=== PATIENT | male | born 1955 | race Caucasian/White ===

== ENCOUNTER 2019-03-22 16:43 | Observation (INO) | payer OTHER ==
[2019-03-22] VITALS (7 sets, daily range): BP systolic 122–148; BP diastolic 74–79
[~2019-03-22] VITALS: Ht 175.3 cm; Wt 68.0 kg
--- NOTE | 2019-03-22 16:19 | NUR ---
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 NOT SEEN BY ERP CIGAR HEAD PERFORATOR IN ER
[2019-03-22 16:31] LABS: HEMATOCRIT 42.8 % (42.0-52.0); HEMOGLOBIN 14.2 gm/dL (14.0-18.0); MCH 27.9 pg (26.0-34.0); MCHC 33.2 g/dL (28.0-37.0); MCV 84.1 fL (80.0-100.0); RBC 5.09 mil/uL (4.50-6.00); WBC 9.6 thou/uL (4.0-11.0)
[2019-03-22 16:38] LABS: CALCIUM 9.5 mg/dL (8.5-10.1); POTASSIUM 3.7 mmol/L (3.5-5.1)
[2019-03-22 16:43] LABS: PROTIME 10.7 Seconds (9.3-11.4)
[~2019-03-22 16:43] MED LIST: ASPIR 8181 MG PO; BENADRYL25 MG PO; PROTONIX 20 MG20 M1 PO
[2019-03-22 18:20] LABS: CHOLESTEROL 345 mg/dL (<200); HDL CHOLESTEROL 47 mg/dL (>40); LDL CHOLESTEROL 272 mg/dL (<100); TC:HDL 7.3 Ratio (Not establshd); TRIGLYCERIDE 133 mg/dL (<150); VLDL 27 mg/dL (<40)
[2019-03-22 18:23] LABS: SERUM ASSESSMENT Clear
--- NOTE | 2019-03-22 18:51 | NUR ---
PT CAME TO UNIT FROM BODY TECHNICIAN/PAINTER. HEMOSTATSIS AT 1739. NO C/O PAIN. BED REST FOR 3 HOURS. VSS AT THIS TIME. A&OX4. FIRST 3 VS CHARTED. REPORT GIVEN TO ON COMING NURSE.
[2019-03-22] MEDS ORDERED: TOPROL XL50 MG PO (21:06)
[2019-03-22] MEDS ORDERED: IMDUR 30 MG TAB30 M1 PO (21:06)
[2019-03-22] MEDS ORDERED: LIPITOR80 MG PO (21:06)
[2019-03-23 00:38] VITALS: BP 100/55
[2019-03-23 04:17] VITALS: BP 102/59
--- NOTE | 2019-03-23 05:05 | NUR ---
ASSUMED PT CARE AT 1900. PT IS ALERT AND ORIENTED. PT ARRIVED ON THE FLOOR FROM MOBILE TESTER AND IS ON BEDREST. RIGHT GROIN SITE IS INTACT, CLEAN AND DRY. PT IS STABLE. NO COMPLIANTS OF CHEST PAIN. ADMISSION ASSESSMENT COMPLETED. NO SIGN OF DISTRESS NOTED IN PT. PT IS ALERT AND ORIENTED. SPOUSE AT BEDSIDE. SCHEDULED MEDS ADMINISTERED TO PT. DENUES ANY CHEST PAIN. NO FURTHER NEEDS AT THIS TIME. CONTINUE TO MONITOR PATIENT AND RIGHT GROIN SITE
[2019-03-23 07:46] VITALS: BP 106/63
--- NOTE | 2019-03-23 08:30 | NUR ---
REPORT RECEIVED FROM PREVIOUS RN, CARE ASSUMED. PRESENT IN ROOM. PT TRANSFERRING PER WHEELCHAIR TO PULMONARY PER PFT.
[2019-03-23] MEDS ORDERED: WELLBUTRIN 75 M75 M1 PO (08:32)
--- NOTE | 2019-03-23 10:26 | 2DMMODE ---
[facility] [place] [address] 2 D/M-MODE ECHOCARDIOGRAM Name: MILLA PERALTA Room #: 207-P [facility] IN .R.#: [id number] Admission: 03/22/19 Attend Phys: Tato Sagastume, Discharge: Date of : 53 Report #: [id number] THIS REPORT FOR: //name// APPROVED REPORT Study performed: 03/23/2019 09:24:24 EXAM: Comprehensive 2D, Doppler, and color-flow Echocardiogram Patient Location: Echo lab Room #: [facility] Status: routine BSA: 1.83 HR: 64 bpm BP: 106/63 mmHg Rhythm: NSR Other Information Study Quality: Good Indications Pre-Op COPD CAD Chest Pain 2D Dimensions RVDd: 28.75 mm IVSd: 10.63 (7-11mm) LVOT Diam: 22.56 (18-24mm) LVDd: 50.22 mm PWd: 10.03 (7-11mm) Ascending Ao: 37.02 (22-36mm) LVDs: 36.05 (25-40mm) Aortic Root: 35.01 mm IVC: 17.00 mm Volumes Left Atrial Volume (Systole) Single Plane 4CH: 37.63 mL Single Plane 2CH: 31.12 mL LA ESV Index: 22.00 mL/m2 Aortic Valve AoV Peak Triston.: 1.37 m/s AO Peak Gr.: 7.52 mmHg LVOT Max P.32 mmHg LVOT Max V: 1.04 m/s ANTONI Vmax: 3.03 cm2 Mitral Valve [facility] [address] [place] [address] 2 D/M-MODE ECHOCARDIOGRAM Name: MILLA PERALTA Room #: 207-P [facility]#: [id number] Admission: 03/22/19 Attend Phys: Tato Sagastume, Discharge: Date of : 53 Report #: [id number] E/A Ratio: 0.9 MV Decel. Time: 229.29 ms MV E Max Triston.: 0.72 m/s MV A Triston.: 0.78 m/s MV PHT: 66.50 ms IVRT: 138.41 ms Pulmonary Valve PV Peak Triston.: 0.97 m/s PV Peak Gr.: 3.74 mmHg Pulmonary Vein P Vein S: 0.64 m/s P Vein A: 0.28 m/s P Vein D: 0.36 m/s P Vein A Dur.: 115.3 msec P Vein S/D Ratio: 1.78 Tricuspid Valve TR Peak Triston.: 2.77 m/s TR Peak Gr.: 30.72 mmHg PA Pressure: 36.00 mmHg Left Ventricle The left ventricle is normal size. There is normal LV segmental wall motion. There is normal left ventricular wall thickness. Left ventricular systolic function is normal. The left ventricular ejection fraction is within the normal range. LVEF is 50-55%. Grade I - abnormal relaxation pattern. Right Ventricle The right ventricle is normal size. The right ventricular systolic function is normal. Atria The left atrium size is normal. The right atrium size is normal. Aortic Valve The aortic valve is normal in structure. No aortic regurgitation is present. There is no aortic valvular stenosis. Mitral Valve The mitral valve is normal in structure. Trace mitral regurgitation. No evidence of mitral valve stenosis. Tricuspid Valve The tricuspid valve is normal in structure. There is mild tricuspid regurgitation. The right atrial pressure is estimated at [facility] [address] [place] [address] 2 D/M-MODE ECHOCARDIOGRAM Name: MILLA PERALTA Room #: 207-P [facility] IN M.R.#: [id number] Admission: 03/22/19 Attend Phys: Tato Sagastume, Discharge: Date of : 53 Report #: [id number] mmHg.Estimated PAP 36 mmHg. There is mild pulmonary hypertension. Pulmonic Valve The pulmonary valve is normal in structure. There is no pulmonic valvular regurgitation. Great Vessels The aortic root is normal in size. IVC is normal in size and collapses >50% with inspiration. Pericardium There is no pericardial effusion. <Conclusion> The left ventricle is normal size. LVEF is 50-55%. The aortic valve is normal in structure. The mitral valve is normal in structure. Trace mitral regurgitation. The tricuspid valve is normal in structure. There is mild tricuspid regurgitation. The right atrial pressure is estimated at mmHg.Estimated PAP 36 mmHg. There is mild pulmonary hypertension. The pulmonary valve is normal in structure. There is no pericardial effusion. <ELECTRONICALLY SIGNED> By: Kashmir Nieves MD 03/23/19 1025 1025 1025 Kashmir Nieves MD /INF
--- NOTE | 2019-03-23 10:47 | NUR ---
Pt dcing home today. Pt and his had ins questions. Updated ins card, [employer] medicare [place] plan, faxed to DOLLY and copy placed on the front of the chart. reports this became effective 03/20/19. Pt to come back next week for open heart surgery. Pt is A&OX4 and anxious about surgery. 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 His works as well but is getting [facility] paperwork so she can be home with him as needed postop. Cm role and dc planning discussed. Goal for the pt is to be able to go to cardiac rehab. He has no hh or dme hx. His drives and can assist with f/u appts. Support and encouragment provide. Pt is making a plan to quit smoking and mantain a heart healthy diet. No cm interventions indicated at this time.
[2019-03-23 12:05] VITALS: BP 128/70
[2019-03-23 15:17] VITALS: BP 128/69
--- NOTE | 2019-03-23 16:00 | NUR ---
WHEN PT RETURNED FROM ROOM FOR PFT, THEN HE TRAVELED IN WHEELCHAIR FOR ECHO AND CAROTID ULTRASOUND. DENIES ANY CARDIAC DISCOMFORT OR SYMPTOMS. WHEN AVAILABLE URINE AND MRSA SENT TO LAB. INFORMED OF ALL NEW MEDS WHEN ADMINISTERED. GENERATED DISCHARGE INSTRUCTIONS WITH DETAILS REGARDING FOLLOW UP PHONE CALL, APPT WITH DR. PATEL, OBTAINING SCRIPTS AT LOCAL PHARMACY. ALL QUESTIONS ANSWERED TO SATISFACTION. CAMRYN DOUGLASS RN DISCUSSING DISCHARGE INSTRUCTIONS WITH PT AND .
--- NOTE | 2019-03-23 16:32 | NUR ---
1630 DC PT TO HOME. EDUCATION GIVEN ABOUT NEW MEDS. SCRPITS SENT TO PHARMACY. PT TAKEN BY WC TO FRONT ENTRANCE.
--- NOTE | 2019-03-24 15:43 | HC ---
[facility] [place] [address] CONSULTATION Name: MILLA PERALTA Room #: 207-P [facility] MFlowerRFlower#: [id number] Admission: 03/22/19 Attend Phys: Tato Sagastume MD, Discharge: 03/23/19 Date of : 53 Report #: [id number] THIS REPORT FOR: //name// CC: Tato Pati[facility] DATE OF SERVICE: 03/23/2019 PULMONARY CONSULTATION REFERRING PHYSICIAN: Dr. Sagastume. REASON FOR REFERRAL: Preop pulmonary evaluation. HISTORY OF PRESENT ILLNESS: The patient is a 63-year-old white male who was admitted for accelerated angina. He was found to have severe coronary artery disease. Plans are for possible coronary bypass revascularization. A pulmonary consultation was requested. The patient states that he has smoked about a pack a day for most of his life. He continues to smoke. Otherwise, denies any fever, night sweats or chills, chest pain, productive cough. He denies any history of chronic lung disease or chronic bronchitis. He states that he has been relatively healthy for most of his life. More recently, he started to develop chest discomfort, easy fatigability. He was seen by his inspector material disposition in [place], Dr. Echevarria. His EKG shows T-wave inversion along the anterolateral leads. For that reason, he was referred here for further evaluation. 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 PAST MEDICAL HISTORY: As mentioned above, long history of tobacco use. PAST SURGICAL HISTORY: Status post hernia repair, appendectomy. ALLERGIES: None noted. HOME MEDICATION LISTS: Aspirin, Benadryl and Protonix. FAMILY HISTORY: Notable for cervical cancer in the mother who has . Father had lung cancer who has worked in a coal mines. SOCIAL HISTORY: The patient is , continues to smoke about a pack a day and has done so for most of his life. 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 [facility] [address] [place] [address] CONSULTATION Name: MILLA PERALTA Room #: 207-P [facility] M.R.#: [id number] Admission: 03/22/19 Attend Phys: Tato Sagastume MD, Discharge: 03/23/19 Date of : 53 Report #: [id number] REVIEW OF SYSTEMS: As mentioned above, otherwise 10-point system review negative. PHYSICAL EXAMINATION: GENERAL: He is awake, alert, in no apparent distress. VITAL SIGNS: Temperature is 97.4 degrees Fahrenheit, pulse is 60, respiratory rate is 18, blood pressure is 100/63 mmHg, saturation 97%. HEENT: Normocephalic, atraumatic. NECK: Supple, without lymphadenopathy or thyromegaly. CHEST: Breath sounds are good bilaterally without any rales or wheezes. CARDIOVASCULAR: Normal S1, S2. No murmurs or gallop. There is no JVD. There is no carotid bruit. Pulses are 2+/4+ bilaterally. ABDOMEN: Soft, nontender, no organomegaly or masses felt. GENITOURINARY: Deferred. RECTAL: Deferred. EXTREMITIES: No edema, cyanosis or clubbing. LABORATORY DATA: Chest x-ray shows questionable density in the left mid lung field. Right lung marie clear. Echocardiogram showed normal ejection fraction approximately 55%, trace mitral regurgitation, pulmonary artery pressure 136, otherwise grossly unremarkable. Cardiac catheterization revealed severe 3-vessel disease. LV function within normal limits. Electrolytes are normal. CBC is normal. IMPRESSION: 1. Lifelong history of tobacco use, in this 63-year-old white male. No past history of chronic lung disease. We will review pulmonary functions when performed. 2. Coronary artery disease, severe 3-vessel disease, normal ejection fraction, scheduled for possible revascularization surgery. CTA has been consulted. 3. Questionable density in the left mid lung field. Repeat chest x-ray, we will follow up CT chest will be advisable prior to surgery. RECOMMENDATION: Review PFTs when available. Strongly recommended smoke cessation. Follow up chest x-ray and CT chest regarding questionable ill-defined left mid lung field density. The patient has been discharged to home. He will follow up with Cardiology and CTs next week for possible surgery. Thank you for this consultation. <ELECTRONICALLY SIGNED> By: Fernandez Jasso MD 03/24/19 1543 1603 0105 Fernandez Jasso MD /nt
--- NOTE | 2019-03-25 13:11 | EKG ---
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
--- NOTE | 2019-03-25 13:16 | EKG ---
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 : 1955 Requested By: Tato Sagastume Order Number: [id number] MD: Tank Dunn Measurements Intervals [place] Rate: 61 P: 67 TN: 142 QRS: 29 QRSD: 97 T: 105 QT: 468 QTc: 472 Interpretive Statements Sinus rhythm Anteroseptal infarct, recent Lateral leads are also involved No previous ECG available for comparison Electronically Signed On 03-25-2019 13:16:11 CDT by Tank Dunn [email or web address] <ELECTRONICALLY SIGNED> By: Tank Dunn MD, [facility] 03/25/19 1316 8 8 Tank Dunn MD, [facility] /EPI
--- NOTE | 2019-03-27 09:27 | D ---
[facility] [place] [address] DISCHARGE SUMMARY Name: MILLA PERALTA Room #: 207-P [facility] Altagracia Werner#: [id number] Admission: 03/22/19 Attend Phys: Tato Sagastume MD, Discharge: 03/23/19 Date of : 53 Report #: [id number] THIS REPORT FOR: //name// CC: Tato Sagastume [facility] COURSE: The patient is a 63-year-old male who came in with some accelerating anginal pain. He was taken directly to the catheterization lab. This revealed severe 3-vessel disease. High-grade multiple areas of subtotal occlusion of the RCA with a PDA that is fairly well preserved. Left main moderately diseased, high-grade long proximal, complicated calcified LAD disease with a good distal target, first OM branch, which is occluded in the distal circ OM, which is widely patent. LV function was lower limits of normal. He is pain free at this time. Beta blockers and nitrates have been added as well as high dose statin. He has significant underlying COPD. We will obtain pulmonary function test, Pulmonary consult, CV Surgery consult. Carotid Doppler today. Anticipation of followup with Dr. Whelan and to see Dr. Whelan next week in the office to arrange his coronary bypass surgery. He does not have unstable symptoms. Would allow him to be discharged here for the weekend. DISCHARGE DIAGNOSES: 1. Severe 3-vessel coronary artery disease with stable angina. 2. Chronic obstructive pulmonary disease. 3. Hypercholesterolemia. 4. Degenerative joint disease. The patient has been instructed to take a relatively easy, avoid high and significant stress, increase activity, may walk around and ambulate, will call and come to the emergency room, if there are any unstable symptoms. Appointments will be made. Thank you for asking me to assist in the care of this patient. <ELECTRONICALLY SIGNED> By: Tato Sagastume MD, FACC 03/27/19 0927 0701 0733 Tato Sagastume MD, FACC /nt
--- NOTE | 2019-03-27 09:27 | H ---
[facility] [place] [address] HISTORY AND PHYSICAL Name: MILLA PERALTA Room #: 207-P [facility] M.R.#: [id number] Admission: 03/22/19 Attend Phys: Tato Sagastume MD, Discharge: 03/23/19 Date of : 53 Report #: [id number] THIS REPORT FOR: //name// CC: Tato Echevarria DO [place] DATE OF SERVICE: 03/22/2019 HISTORY OF PRESENT ILLNESS: The patient is a 63-year-old male was asked by Dr. Echevarria, also sees by Dr. Langston in [place], [place] to evaluate him for accelerating anginal pattern. No prior documented coronary artery disease. Did have a brother that had from an infarct in his 50s. The patient has developed deep T-wave inversions in his anterolateral leads, which is a new finding. He was seen by Dr. Echevarria, who is a ultrasound spec in [place] and this sounds to have somewhat of typical and atypical features. Some of this is brought on with exertion, but some at rest, mostly in the process steward, he states. No definite acceleration with the onset occurred approximately 2 weeks ago. Perhaps some slight decreased fatigue. 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 He takes no medications except for an aspirin. His basic chemistry is normal here. Creatinine is 1.0, potassium 3.7. Hemoglobin was 14. PAST MEDICAL HISTORY: Positive only for hernia and appendectomy, presumed COPD with longstanding tobacco. He otherwise does not typically see physicians. SOCIAL HISTORY: He is , a pack a day smoker. No alcohol. 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 FAMILY HISTORY: Had a brother from cardiac arrest in his 50s. REVIEW OF SYSTEMS: Negative except for stated above, some nocturia. PHYSICAL EXAMINATION: GENERAL: He is pleasant, alert. He is in no distress. VITAL SIGNS: Blood pressure 124/68, pulse is 80 and regular. HEENT: Eyes reveal xanthelasmas. Pharynx is clear. NECK: Preserved upstrokes, faint right-sided bruit is noted. No JVD. LUNGS: Prolonged expiratory phase but clear. CARDIOVASCULAR: Distant heart tones, S1, S2. ABDOMEN: Soft. No HSM or abdominal bruit, slightly tender in the midepigastric. EXTREMITIES: Reveal slight diminished pulses, but they are intact bilaterally. SKIN: Warm and dry without xanthoma or ulcer. MUSCULOSKELETAL: Gross joint deformity, some diffuse osteoarthritic changes of [address] [address] HISTORY AND PHYSICAL Name: MILLA PERALTA Room #: 207-P [facility] Altagracia MJosr#: [id number] Admission: 03/22/19 Attend Phys: Tato Sagastume MD, Discharge: 03/23/19 Date of : 53 Report #: [id number] the hands and knees. ASSESSMENT: 1. Suspected coronary artery disease with accelerating anginal pattern. 2. Chronic obstructive pulmonary disease, longstanding tobacco use. 3. Strong family history of premature coronary artery disease. RECOMMENDATIONS AND PLAN: With this abnormal EKG, this story certainly sounds classic for angina. We will proceed to the catheterization lab to delineate the anatomy. Aspirin and statin have been initiated and then possible intervention as indicated. Risks, benefits, alternatives discussed. Further recommendations to follow once cardiac catheterization is completed. Thank you for asking me to assist in the care of this patient. <ELECTRONICALLY SIGNED> By: Tato Sagastume MD, FACC 03/27/19 0927 1738 1753 Tato Sagastume MD, FACC /nt
--- NOTE | 2019-03-27 12:32 | CATHLAB ---
[facility] [address] [place] [address] INVASIVE PROCEDURE REPORT Name: MILLA PERALTA Room #: 207-P [facility] [place] .#: [id number] Admission: 03/22/19 Attend Phys: Tato Sagastume, Discharge: 03/23/19 Date of : 53 Report #: [id number] THIS REPORT FOR: //name// APPROVED REPORT Study performed: 03/22/2019 16:28:12 Patient Details Patient Status: In-Patient Room #: The patient is a 64 year-old male Event Personnel Tato Sagastume Development Consultant, Sofia Camarena RN, Lisa Jo RN RN, Emily Murillo, Rudi Santiago RTR Scrub Procedures Performed Art Access - R femoral artery* 36173 Initial Mod Sed Same Phys/QHP Gr5y 243304 50672 Mod Sed Same Phys/QHP Ea 119647 Left Heart Cath w/or w/o Coronaries [id number] [facility] Aortogram Abdominal Peripheral Angio 107210 Hemostasis w/ Mynx Indication Chest pain Procedure Narrative The patient was brought urgently to the Cardiac Catheterization Laboratory and was prepped and draped in a sterile manner. The Right Groin^ was infiltrated with 1% Lidocaine subcutaneous anesthesia. A PINNACLE 6FR Sheath #[id number] sheath was inserted into the RFA^. Coronary angiography was performed using coronary diagnostic catheters. The right coronary system was accessed and visualized with a JR 4 catheter. The left coronary system was accessed and visualized with a JL 4 catheter. The left ventricle was accessed and visualized with a Pigtail catheter. Left ventriculogram was performed in KIM projection. An aortogram of the abdominal aorta was performed. Pre-demployment femoral angiogram was performed . Closure device was deployed with a 6 Fr Mynx. The patient tolerated the procedure well and there were no complications associated with the procedure. There was no hematoma. Intraoperative Conscious Sedation Sedation start time: 17:06 Case end Time: 17:42 Fentanyl 75 mcg Versed 1.[address] [address] INVASIVE PROCEDURE REPORT Name: MILLA PERALTA Room #: 207-P [facility]#: [id number] Admission: 03/22/19 Attend Phys: Tato Sagastume, Discharge: 03/23/19 Date of : 53 Report #: [id number] Fluoro Time: 3.19 minutes Dose: DAP 3604.00 cGycm2 401 mGy Contrast Type and Amount: Visipaque 160 ml Hemodynamics The aortic pressure is 119/55 mmHg with a mean of 80 mmHg. The left ventricular pressure is 119/7 mmHg with a mean of mmHg. The left ventricular end diastolic pressure is 18 mmHg. Conclusion #1 left main moderately disease to both the ostium and distal aspects in the 40% range giving rise to LAD and circumflex #2 the LAD has a long complex proximal stenosis in the 80-90% range giving rise into a well-preserved vessel extends around the apex. Moderate disease in the diagonal system proximally is noted #3 circumflex OM with also complex calcified eccentric 80% lesion the first OM branch appears to be occluded and collaterally fills and then a large distal OM branches patent via this circumflex system #4 the right is high-grade and severe diffuse disease throughout the PDA is faintly filling and some presumably a codominant system. This would not be amenable to percutaneous or bypass. #5 normal left ventricular size with subtle anterior apical wall leg EF 50-55% #6 abdominal aorta is mildly ectatic small aneurysm no occlusive disease is noted renal arteries appear patent. Recommendations and plan: Patient has severe three-vessel coronary disease. It does appear to be amenable to revascularization by bypass. LV function is preserved. Patient has stable anginal symptoms. Will intensify medical therapy and have CV surgical consultation as outpatient. To CCU overnight. <ELECTRONICALLY SIGNED> By: Tato Sagastume MD, FACC 03/27/19 1232 1232 1232 Tato Sagastume MD, FACC /INF
[2019-03-27] MEDS ORDERED: ASPIR 8181 MG PO (14:22)
[2019-03-27] MEDS ORDERED: WELLBUTRIN SR150 MG PO (14:41)
[2019-03-27] MEDS ORDERED: TOPROL XL25 MG PO (14:44)
[2019-03-28] MEDS ORDERED: LIPITOR80 MG PO (10:51)
[2019-03-28] MEDS ORDERED: IMDUR 30 MG TAB30 M1 PO (10:52)
[2019-03-28] MEDS ORDERED: WELLBUTRIN 75 M75 M1 PO (10:53)
[2019-03-29] MEDS ORDERED: PROAIR HFA8.5 GM INH (10:51)
[2019-03-29] MEDS ORDERED: SPIRIVA18 MCG INH (10:51)
[2019-03-29] MEDS ORDERED: XANAX 0.25 MG0.25 MG PO (11:00)
--- NOTE | 2019-04-04 12:55 | PFR/MVV ---
[facility] [place] [address] PULMONARY FUNCTION MVV/REPORT Name: MILLA PERALTA Room #: 207-P [facility] M.RFlower#: [id number] Admission: 03/22/19 Attend Phys: Tato Sagastume MD, [facility] Discharge: 03/23/19 Date of : 53 Report #: [id number] THIS REPORT FOR: //name// >> SPIROMETRY: (BTPS) Height: 69 in cm Weight: 146 lbs kg Exam Date: 03/23/19 PRE-RX POST-RX PRED BEST %PRED BEST %PRED %CHG FVC LITERS . 4.37 . 3.74 . 86 . 3.66 . 84 . -2 FEV1 LITERS . 3.04 . 2.33 . 77 . 2.26 . 74 . -3 FEV1/FVC % . 70 . 62 . 89 . 62 . 88 . -1 SLR28-92% L/Sec . 2.88 . 0.99 . 35 . 1.05 . 37 . 6 PEF L/SEC . 8.24 . 6.67 . 81 . 5.81 . 71 . -13 FEF50/FIF50 UNITLESS . . 0.90 . 1.42 . . 58 . MVV L/Min . 132 . 94 . 71 f 1/Min . . 180 . >> LUNG VOLUMES: (BTPS) PRE-RX POST-RX PRED AVG %PRED AVG %PRED %CHG VC Liters . 4.37 . 3.74 . 86 . . . TLC Liters . 6.36 . 8.26 . 130 . . . RV Liters . 2.37 . 4.52 . 191 . . . RV/TLC % . 39 . 55 . 142 . . . FRC [address] Liters . 3.81 . 5.09 . 132 . . . FRC N2 Liters . . . . . . ERV Liters . 1.48 . 0.57 . 39 . . . IC Liters . 2.96 . 3.30 . 112 . . . >> DIFFUSION: DLCO ml/Min/mmHg . . . . . . DL Javi ml/Min/mmHg . . . . . . DLCO/VA ml/Min/mmHg . . . . . . VA Liters . 6.90 . 0.50 . 7 . . . COMMENTS: COMMENTS: >> RESISTANCE: [facility] [address] [place] [address] PULMONARY FUNCTION MVV/REPORT Name: MILLA PERALTA [id number] Admission: 03/22/19 Attend Phys: Tato Sagastume MD, [facility] Discharge: 03/23/19 Date of : 53 Report #: [id number] PRE-RX PRED AVG %PRED Raw Total cmH20/L/Sec . . 2.57 . Raw Insp cmH20/L/Sec . . 1.59 . Raw Exp cmH20/L/Sec . . 1.57 . Raw cmH20/L/Sec . 1.14 . 1.70 . 150 Gaw L/Sec/cmH20 . 0.929 . 0.587 . 63 sRaw cmH20 Sec . 4.40 . 9.30 . 211 sGaw l/cmH20 Sec . 0.227 . 0.108 . 47 Vtq Liters . . 5.46 . # = OUTSIDE 95% CONFIDENCE INTERVAL CALIBRATION: PRED: 3.00 ACTUAL: EXP 3.01 INSP 3.02 [facility]-OL[facility]-06 [facility]-05 N-1804-4 >> INTERPRETATION/IMPRESSION: CC: [facility] Hernan Whelan MD DATE OF SERVICE: 03/23/2019 Spirometric examination shows mild obstructive airway disease. There was no significant bronchodilator response. Lung volumes are mildly increased with total lung capacity measuring 130% predicted. Diffusion capacity was not able to be performed. Flow volume loop is consistent with airflow obstruction. IMPRESSION: Mild obstructive ventilatory defect. Diffusion capacity was not able to be performed. Clinical correlation is recommended. <ELECTRONICALLY SIGNED> By: Fernandez Jasso MD 04/04/19 1255 Fernandez Jasso MD /nt
[2019-05-02] MEDS ORDERED: LIPITOR 40 MG T40 M1 PO (10:21)
[2019-05-02] MEDS ORDERED: METOPROLOL TART25 MG PO (10:23)
[2019-05-02] MEDS ORDERED: LORCET 5-325 M1 EACH PO (10:37)
[2019-05-02] MEDS ORDERED: BENADRYL25 MG PO (10:37)
[2019-05-26 19:30] VITALS: BP 142/84
== END 2019-03-23 16:54 | disposition home or self-care (01) ==
LOC: CATH 16:43 → 2N 18:11
PROVIDERS: ADMIT Internal Medicine Cardiovascular Disease
DX: I25.119 Atherosclerotic heart disease of native coronary artery with unspecified angina pectoris (principal); J44.9 Chronic obstructive pulmonary disease, unspecified; M19.90 Unspecified osteoarthritis, unspecified site; E78.00 Pure hypercholesterolemia, unspecified; F17.210 Nicotine dependence, cigarettes, uncomplicated; Z79.82 Long term (current) use of aspirin; Z79.899 Other long term (current) drug therapy

== ENCOUNTER → 2019-03-28 | Outpatient (CLI) | payer OTHER ==
[~2019-03-28] MED LIST changes: +IMDUR 30 MG TAB30 M1 PO; +LIPITOR 40 MG T40 M1 PO; +LIPITOR40 MG PO; +LIPITOR80 MG PO; +LORCET 5-325 M1 EACH PO; +METOPROLOL TART25 MG PO; +PROAIR HFA8.5 GM INH; +SPIRIVA18 MCG INH; +TOPROL XL25 MG PO; +TOPROL XL50 MG PO; +WELLBUTRIN 75 M75 M1 PO; +WELLBUTRIN SR150 MG PO; +XANAX 0.25 MG0.25 MG PO
== END ==
LOC: ULTRA 09:29
DX: Z01.810 Encounter for preprocedural cardiovascular examination (principal); I25.10 Atherosclerotic heart disease of native coronary artery without angina pectoris; J44.9 Chronic obstructive pulmonary disease, unspecified; Z95.5 Presence of coronary angioplasty implant and graft

== ENCOUNTER 2019-03-29 12:28 | Inpatient (IN) | payer OTHER ==
[2019-03-28 11:07] LABS: ABSOLUTE NEUTROPHILS 7.6 thou/uL (1.4-8.2); BASOPHILS 0.7 % (0.0-2.0); EOSINOPHILS 1.8 % (0.0-3.0); HEMATOCRIT 40.3 % (42.0-52.0); HEMOGLOBIN 13.6 gm/dL (14.0-18.0); MCH 28.4 pg (26.0-34.0); MCHC 33.7 g/dL (28.0-37.0); MCV 84.1 fL (80.0-100.0); MONOCYTES 8.1 % (1.0-8.0); PLATELET COUNT 339 thou/uL (150-400); POLYS 73.4 % (36.0-66.0); RBC 4.79 mil/uL (4.50-6.00); RDW 14.3 % (10.5-14.5); WBC 10.3 thou/uL (4.0-11.0)
[2019-03-28 11:09] LABS: URINE BILIRUBIN NEGATIVE (Negative); URINE BLOOD NEGATIVE (Negative); URINE CLARITY CLEAR; URINE COLOR YELLOW; URINE GLUCOSE-RANDOM* NEGATIVE (Negative); URINE KETONES NEGATIVE (Negative); URINE LEUKOCYTES-REFLEX NEGATIVE (Negative); URINE NITRITE-REFLEX NEGATIVE (Negative); URINE PROTEIN (DIPSTICK) NEGATIVE (Negative); URINE UROBILINOGEN 0.2 E.U./dl (0.2-1.0)
[2019-03-28 11:24] LABS: ALBUMIN 3.7 g/dL (3.4-5.0); CALCIUM 9.4 mg/dL (8.5-10.1); CREATININE 0.8 mg/dL (0.7-1.3); POTASSIUM 4.3 mmol/L (3.5-5.1); TOTAL BILIRUBIN 0.4 mg/dL (<0.1-1.0); TOTAL PROTEIN 7.1 g/dL (6.4-8.2)
[2019-03-28 12:45] LABS: INR 1.1; PROTIME 11.4 Seconds (9.3-11.4)
[~2019-03-29] VITALS: Ht 175.3 cm; Wt 66.7 kg
[2019-03-29 07:11] LABS: GLYCOHEMOGLOBIN (HGB A1C) 5.7 % (4.8-5.6)
[~2019-03-29 12:28] MED LIST changes: -LIPITOR 40 MG T40 M1 PO; -LIPITOR40 MG PO; -LORCET 5-325 M1 EACH PO; -METOPROLOL TART25 MG PO
[2019-04-03] VITALS (13 sets, daily range): BP systolic 89–114; BP diastolic 52–74
[2019-04-03 12:35] LABS: MCHC 33.2 g/dL (28.0-37.0); MCV 84.4 fL (80.0-100.0); RBC 2.92 mil/uL (4.50-6.00); RDW 14.2 % (10.5-14.5); WBC 10.2 thou/uL (4.0-11.0)
[2019-04-03 12:38] LABS: HEMATOCRIT 24.6 % (42.0-52.0); HEMOGLOBIN 8.2 gm/dL (14.0-18.0)
[2019-04-03 12:53] LABS: INR 1.7; PROTIME 18.2 Seconds (9.3-11.4)
[2019-04-03 12:54] LABS: APTT 31.8 Seconds (24.5-32.8); FIBRINOGEN 216.8 mg/dL (210-360)
[2019-04-03 13:40] LABS: POC BE 5 mmol/L (-2.0 to +3.0); POC CA IONIZED 4.3 mg/dL (4.5-5.3); POC GLUCOSE 160 mg/dL (70-99); POC HCO3 28.1 mmol/L (22.0-26.0); POC HEMOGLOBIN 8.8 g/dL (14.0-18.0); POC POTASSIUM 5.1 mmol/L (3.5-5.1); POC SODIUM 136 mmol/L (136-145); POC pCO2 36.4 mmHg (35.0-45.0); POC pH 7.496 (7.360-7.450)
[2019-04-03 13:40] LABS: POC BE 5 mmol/L (-2.0 to +3.0); POC CA IONIZED 4.2 mg/dL (4.5-5.3); POC GLUCOSE 133 mg/dL (70-99); POC HCO3 28.7 mmol/L (22.0-26.0); POC HEMOGLOBIN 7.8 g/dL (14.0-18.0); POC POTASSIUM 4.3 mmol/L (3.5-5.1); POC SODIUM 136 mmol/L (136-145); POC pCO2 41.8 mmHg (35.0-45.0); POC pH 7.444 (7.360-7.450)
[2019-04-03 13:40] LABS: POC BE 7 mmol/L (-2.0 to +3.0); POC CA IONIZED 4.1 mg/dL (4.5-5.3); POC GLUCOSE 121 mg/dL (70-99); POC HCO3 29.9 mmol/L (22.0-26.0); POC HEMOGLOBIN 9.9 g/dL (14.0-18.0); POC POTASSIUM 4.9 mmol/L (3.5-5.1); POC SODIUM 136 mmol/L (136-145); POC pCO2 35.8 mmHg (35.0-45.0)
[2019-04-03 13:40] LABS: POC BE 8 mmol/L (-2.0 to +3.0); POC CA IONIZED 4.8 mg/dL (4.5-5.3); POC GLUCOSE 106 mg/dL (70-99); POC HCO3 31.5 mmol/L (22.0-26.0); POC HEMOGLOBIN 11.9 g/dL (14.0-18.0); POC POTASSIUM 4.2 mmol/L (3.5-5.1); POC SODIUM 138 mmol/L (136-145); POC pCO2 41.8 mmHg (35.0-45.0); POC pH 7.485 (7.360-7.450)
[2019-04-03 13:40] LABS: POC BE 3 mmol/L (-2.0 to +3.0); POC CA IONIZED 4.3 mg/dL (4.5-5.3); POC GLUCOSE 136 mg/dL (70-99); POC HCO3 27.8 mmol/L (22.0-26.0); POC HEMOGLOBIN 8.8 g/dL (14.0-18.0); POC POTASSIUM 4.8 mmol/L (3.5-5.1); POC SODIUM 138 mmol/L (136-145); POC pCO2 43.1 mmHg (35.0-45.0); POC pH 7.417 (7.360-7.450)
[2019-04-03 13:40] LABS: POC BE 5 mmol/L (-2.0 to +3.0); POC CA IONIZED 4.3 mg/dL (4.5-5.3); POC GLUCOSE 133 mg/dL (70-99); POC HCO3 28.5 mmol/L (22.0-26.0); POC HEMOGLOBIN 8.8 g/dL (14.0-18.0); POC POTASSIUM 4.4 mmol/L (3.5-5.1); POC SODIUM 139 mmol/L (136-145); POC pCO2 40.1 mmHg (35.0-45.0)
[2019-04-03 13:40] LABS: POC BE 4 mmol/L (-2.0 to +3.0); POC CA IONIZED 5.6 mg/dL (4.5-5.3); POC GLUCOSE 125 mg/dL (70-99); POC HEMOGLOBIN 8.2 g/dL (14.0-18.0); POC POTASSIUM 3.8 mmol/L (3.5-5.1); POC SODIUM 138 mmol/L (136-145); POC pCO2 41.5 mmHg (35.0-45.0); POC pH 7.437 (7.360-7.450)
[2019-04-03 13:40] LABS: POC BE 6 mmol/L (-2.0 to +3.0); POC CA IONIZED 4.7 mg/dL (4.5-5.3); POC GLUCOSE 118 mg/dL (70-99); POC HCO3 30.7 mmol/L (22.0-26.0); POC HEMOGLOBIN 12.2 g/dL (14.0-18.0); POC POTASSIUM 4.4 mmol/L (3.5-5.1); POC SODIUM 136 mmol/L (136-145); POC pCO2 49.7 mmHg (35.0-45.0); POC pH 7.398 (7.360-7.450)
[2019-04-03 13:41] LABS: POC BE 3 mmol/L (-2.0 to +3.0); POC CA IONIZED 5.1 mg/dL (4.5-5.3); POC GLUCOSE 119 mg/dL (70-99); POC HCO3 27.6 mmol/L (22.0-26.0); POC HEMOGLOBIN 9.5 g/dL (14.0-18.0); POC POTASSIUM 3.7 mmol/L (3.5-5.1); POC SODIUM 140 mmol/L (136-145); POC pCO2 43.3 mmHg (35.0-45.0); POC pH 7.412 (7.360-7.450)
[2019-04-03 13:59] LABS: BE(vivo) -1.9 mmol/L (-2 to +3); HCO3 24.6 mmol/L (22.0-26.0); PCO2 48.9 mmHg (35.0-45.0); PO2 201.7 mmHg (80.0-100.0); sO2 99.3 % (92.0-98.0)
[2019-04-03 14:00] LABS: pH 7.319 (7.360-7.450)
[2019-04-03 14:04] LABS: HEMATOCRIT 32.9 % (42.0-52.0); HEMOGLOBIN 10.8 gm/dL (14.0-18.0); MCH 27.7 pg (26.0-34.0); MCHC 32.7 g/dL (28.0-37.0); MCV 84.8 fL (80.0-100.0); RBC 3.88 mil/uL (4.50-6.00); RDW 14.5 % (10.5-14.5); WBC 20.7 thou/uL (4.0-11.0)
--- NOTE | 2019-04-03 14:05 | NUR ---
1340 RECEIVED PT FROM OR, WITH NURSING STAFF, MANAGER RESEARCH, ANETHSTESIA AND SURGEON. PLACED ON MONITOR AND VIGILANCE. NO GTT AT THIS TIME. LABS DRAWN. CT TO SUCTION. JASMIN HUGGER OFF, PT ALREADY REACHED TARGETED TEMP. WILL SPEAK WITH FAMILY ABOUT POC.
[2019-04-03 14:12] LABS: CALCIUM 8.7 mg/dL (8.5-10.1); CREATININE 0.8 mg/dL (0.7-1.3); MAGNESIUM 2.7 mg/dL (1.8-2.4); POTASSIUM 3.8 mmol/L (3.5-5.1)
[2019-04-03 17:40] LABS: BE(vivo) -2.1 mmol/L (-2 to +3); PCO2 40.6 mmHg (35.0-45.0); PO2 261.7 mmHg (80.0-100.0); pH 7.371 (7.360-7.450); sO2 99.6 % (92.0-98.0)
[2019-04-04] VITALS (10 sets, daily range): BP systolic 77–96; BP diastolic 48–62
[2019-04-04 06:02] LABS: HEMOGLOBIN 9.7 gm/dL (14.0-18.0); MCH 27.4 pg (26.0-34.0); MCHC 32.3 g/dL (28.0-37.0); MCV 84.8 fL (80.0-100.0); RBC 3.54 mil/uL (4.50-6.00); RDW 14.4 % (10.5-14.5); WBC 12.4 thou/uL (4.0-11.0)
[2019-04-04 06:12] LABS: CALCIUM 7.9 mg/dL (8.5-10.1); CREATININE 0.9 mg/dL (0.7-1.3); MAGNESIUM 2.1 mg/dL (1.8-2.4); POTASSIUM 4.2 mmol/L (3.5-5.1)
--- NOTE | 2019-04-04 07:00 | NUR ---
Pt progressing well with stable VS and adequate SpO2 on 1L of O2. PRN fentanyl and hydrocodones given for c/o chest "soreness" with desired effects achieved. Tolerating PO fluids with no c/o nausea and urine output adequate for shift. Chest tube drainage minimal and am lab results noted. Continue with POC.
--- NOTE | 2019-04-04 08:25 | EKG ---
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
--- NOTE | 2019-04-04 08:32 | EKG ---
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
--- NOTE | 2019-04-04 08:40 | NUR ---
CM ASSESSMENT: CASE OPENED FOR DC PLANNING. CLINICAL INFO REVIEWED. PT IS POD #1 CABG. 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 NO DME OR PREVIOUS HH. LIKELY HOME WITH NO NEEDS WHEN MEDICALLY STABLE. WILL FOLLOW THERAPY EVALS AND AVAILABLE TO ASSIST WITH COORDINATION OF ANY DC NEEDS.
--- NOTE | 2019-04-04 10:00 | NUR ---
Nutrition: pt POD CABG x 3. Consult received, RD will followup to determine education needs when out of ICU/closer to D/C.
--- NOTE | 2019-04-04 11:11 | NUR ---
ALERT AND ORIENTED AND HAS DENIED PAIN. SWAN DC'D PER ORDER, PACER WIRES CAPPED AND LILI WRAP REMOVED FROM LLE. UP TO THE CHAIR AND TOLERATED WELL. VITALS STABLE. TOLERATED DIET W/O NAUSEA. CHEST TUBES TO SUCTION. JEFFERSON WITH ADEQUATE OUTPUT.
[2019-04-05] VITALS (18 sets, daily range): BP systolic 92–115; BP diastolic 54–69
[2019-04-05 05:30] LABS: CREATININE 0.8 mg/dL (0.7-1.3); POTASSIUM 3.7 mmol/L (3.5-5.1)
[2019-04-05 05:33] LABS: HEMATOCRIT 29.9 % (42.0-52.0); HEMOGLOBIN 9.8 gm/dL (14.0-18.0); MCH 27.7 pg (26.0-34.0); MCHC 32.7 g/dL (28.0-37.0); MCV 84.7 fL (80.0-100.0); RBC 3.53 mil/uL (4.50-6.00); RDW 14.6 % (10.5-14.5); WBC 12.7 thou/uL (4.0-11.0)
--- NOTE | 2019-04-05 07:32 | O ---
[facility] [place] [address] OPERATIVE REPORT Name: MILLA PERALTA Room #: 236-P ADM IN M.R.#: [id number] Admission: 04/03/19 Attend Phys: Lavell Whelan MD Discharge: Date of : 53 Report #: [id number] THIS REPORT FOR: //name// CC: RADHA Whelan Physician staff DATE OF SERVICE: 04/03/2019 PREOPERATIVE DIAGNOSIS: Coronary artery disease. POSTOPERATIVE DIAGNOSIS: Coronary artery disease. OPERATION: Coronary artery bypass x 5 including left internal mammary artery to left anterior descending artery, saphenous vein to diagonal and marginal artery and saphenous vein to posterior descending branch of the right coronary and posterolateral branch which is a circumflex branch. Endoscopic harvest, left greater saphenous vein SURGEON: Lavell Whelan MD DIE ENGRAVING SUPERVISOR: EVIN Carlos. ANESTHESIA: General. INDICATIONS: The patient is a 64-year-old, seen for Dr. Sagastume. The patient has severe 3-vessel coronary artery disease and presents with new angina. Unfortunately, the patient also has a 4 cm left lower lobe pulmonary lesion suspicious for cancer. This lesion is active on PET scan and there are also hilar and what appeared to be aortopulmonary window mediastinal nodes that light up. FINDINGS AND TECHNIQUE: After general anesthesia was established, left greater saphenous vein was harvested using an endoscopic approach and prepared for use as a conduit. Exposure was obtained through median sternotomy. Left internal mammary artery was harvested. Pericardial well was made. Cannulation sutures were placed. Heparin was given. Aorta was cannulated. Right atrium was cannulated. Cardioplegia needle was positioned in the aortic root. Retrograde cardioplegic catheter was placed in coronary sinus. Cardiopulmonary bypass was established. The aorta was cross clamped. Antegrade, then retrograde cardioplegia were given. Ice was poured into the pericardial well. The heart was stopped. During electromechanical arrest, the distal anastomoses were performed and [facility] [address] [place] [address] OPERATIVE REPORT Name: MILLA PERALTA Room #: 236-P [facility] IN [facility]#: [id number] Admission: 04/03/19 Attend Phys: Lavell Whelan MD Discharge: Date of : 53 Report #: [id number] end-to-side anastomosis was made between vein and the posterolateral branch. This appeared to be the terminal circumflex branch. This was a 1.6 mm vessel. Cold cardioplegia was given. Same segment of vein was sewn in end-to-side fashion with posterior descending artery, which appeared to be a right coronary branch and this was a 1.3 mm vessel. Cold cardioplegia was given. A separate segment of vein was sewn in end-to-side fashion to the marginal artery. This was a vessel that appeared to be chronically occluded on the angiogram and it measured 1.2 mm. Cold cardioplegia was given. The same segment of vein was sewn in an end-to-side fashion to a diagonal artery. This was a 1.3 mm vessel. Cold cardioplegia was given. I looked for a ramus intermedius, but I thought it was too small for bypass. Left internal mammary artery was sewn in end-to-side fashion to the left anterior descending artery. This was a 1.5 mm vessel. Cold cardioplegia was given. Two proximal anastomoses were performed. When these were complete, warm retrograde cardioplegia was given followed by warm continuous blood to the coronary sinus. When this infusion was complete, the crossclamp was removed, de-airing maneuvers were performed. The anastomoses were inspected and found to be satisfactory. As the patient warmed, nice cardiac activity resumed, chest tubes and pacing wires were placed, a marker was placed around the proximal anastomoses. When the patient was warmed, he was weaned from cardiopulmonary bypass. Venous cannula was removed. Protamine was given, the aortic cannula was removed. Flows were measured in the bypass grafts. When hemostasis was satisfactory, chest was irrigated with antibiotic solution and closed in the usual fashion. The patient was taken to the Intensive Care Unit in good condition having tolerated the procedure well. All counts reported as correct. <ELECTRONICALLY SIGNED> By: Lavell Whelan MD 04/05/19 0732 [id number] 1617 Lavell Whelan MD /nt
[2019-04-06 00:08] LABS: GLYCOHEMOGLOBIN (HGB A1C) 5.7 % (4.8-5.6)
--- NOTE | 2019-04-06 03:51 | NUR ---
PT ICU TRANSFER. S/P CABG X 5 POST-OP DAY 3. PT ALERT AND ORIENTED. DENIES PAIN OTHER THAN DISCOMFORT WHHILE COUGHING. PT VITALS STABLE ON ARRIVAL, BP 115/69, (80), O2 96, RR 20, PULSE 78, TEMP 99.8. PT SPOUSE AT BEDSIDE. VOIDING PER URINAL. CHEST TUBES PRESENT ON CONTINOUS SACTION. PT APPEAR STABLE CURRENTLY WITH NO OTHER COMPLAINTS. WILL CONTINUE TO FOLLOW PLAN OF CARE.
[2019-04-06 04:41] VITALS: BP 105/67
[2019-04-06 07:35] VITALS: BP 114/65
[2019-04-06 11:22] VITALS: BP 115/71
--- NOTE | 2019-04-06 15:54 | NUR ---
Pt is progressing postop cabg. Possible weekend dc to home with outpt f/u. Chest tube to waterseal today and walking with therapy. Will remain available should dc needs arise.
[2019-04-06 16:07] VITALS: BP 120/77
--- NOTE | 2019-04-06 18:07 | NUR ---
ASSUMED CARE PT AT SHIFT CHANGE. ASSESSMENTS CHARTED. MEDS GIVEN PER AUG. PT ALERT AND ORIENTED, VSS, DENIES CHEST PAIN/STERNAL PAIN. O2 SATS WNL ON ROOM AIR. DENIES SOB. CHEST TUBES REMAIN IN TO WATER SEAL. PACER WIRES REMOVED PER CTS. PT UP WITH CARDIAC REHAB AND PHYSICAL THERAPY THIS SHIFT, TOLERATING VERY WELL. APPETITE ADEQUATE, SUPPLEMENTS ADDED PER PROVIDER. SPOUSE AT BEDSIDE THROUGHOUT SHIFT. DENIES NEEDS AT THIS TIME. WILL CONT TO MONITOR AND FOLLOW POC.
[2019-04-06 19:49] VITALS: BP 124/75
--- NOTE | 2019-04-07 04:26 | NUR ---
ASSESSMENT DOCUMENTED.PT BEEN RESTING IN NO ACUTE DISTRESS.A/OX4.VSS.NSR ON MONITOR.S/P CABGX5.STERNAL INCISION COVERED WITH MAXIMILIANO DRESSING.HARVEST SITE TO LEFT LEG INCISIONS DRESSINGS CDI.CHEST TUBE TO WATER SEAL.RA W/O RESP DISTRESS.AMBULATED ON THE HALLWAY,TOLERATED.SPOUSE AT BEDSIDE.DENIES PAIN AT THIS TIME.WILL CONT W/POC.
[2019-04-07 05:13] VITALS: BP 115/62
[2019-04-07 07:04] LABS: HEMOGLOBIN 10.2 gm/dL (14.0-18.0); MCH 27.4 pg (26.0-34.0); MCHC 32.8 g/dL (28.0-37.0); MCV 83.5 fL (80.0-100.0); RBC 3.71 mil/uL (4.50-6.00); RDW 14.2 % (10.5-14.5); WBC 12.8 thou/uL (4.0-11.0)
[2019-04-07 07:21] LABS: CALCIUM 8.3 mg/dL (8.5-10.1); CREATININE 0.6 mg/dL (0.7-1.3); POTASSIUM 3.5 mmol/L (3.5-5.1)
[2019-04-07 09:09] LABS: PHOSPHORUS 2.4 mg/dL (2.5-4.9)
--- NOTE | 2019-04-07 17:50 | NUR ---
ASSESMENT DOCUMENTED. VSS AND AFEBRILE. SR ON THE MONITOR. DR COLLAZO DISCONTINUED THE CT, AND PATIENT TOLERATED PROCEDURE WELL. PATIENT UP WALKING THE HALLWAYS WITH FAMILY. PROGRESSING TOWARD GOALS AND WILL CONTINUE WITH POC.
[2019-04-07 20:12] VITALS: BP 112/68
--- NOTE | 2019-04-08 04:28 | NUR ---
PT RESTING IN NO ACUTE DISTRESS.VSS.S/P CABG X5..RA W/O RESP DISTRESS.AMBULATES ON THE HALLWAYS W/O DIFFICULTIES.DENIES ANY CONCERNS.STERNAL DRESSING INTACT.PT HOPING TO BE DISCHARGED TODAY.WILL CONT TO MONITOR PER POC.
[2019-04-08 04:55] VITALS: BP 112/68
[2019-04-08 12:09] VITALS: BP 112/68
[2019-04-08] MEDS ORDERED: LIPITOR40 MG PO (12:17)
[2019-04-08] MEDS ORDERED: TOPROL XL25 MG PO (12:33)
--- NOTE | 2019-04-08 13:42 | NUR ---
ASSUMED CARE AT SHIFT CHNAGE, ALERT AND ORIENTED X4. SA WITH PAC's ON THE MONITOR AND VSS. UP ADLIB WALKING AROUND. DRESSING TO INCISION X3 CHANGED, AND PATIENT SHOWERED. DISCHARGE AND MEDICATION INSTRUCTIONS GIVEN TO PATIENT AND FAMILY. PATIENT DISCHARGED HOME.
--- NOTE | 2019-04-09 08:59 | EKG ---
[place] [address] [facility] [place] [address] ELECTROCARDIOGRAM REPORT Name: KATHRYNMILLA Natalie Room #: 202-[facility] IN M.R.#: [id number] Admission: 04/03/19 Attend Phys: Lavell Whelan MD Discharge: 04/08/19 Date of : 53 Report #: [id number] THIS REPORT FOR: //name// [facility] Test Date: 2019-04-07 Test Time: 07:25:46 Pat Name: MILLA PERALTA Department: Room: 202 P Gender: M Environmental Health Officer: PEGGY : 1955 Requested By: Timothy Jane Order Number: [id number] MD: Tank Dunn Measurements Intervals [place] Rate: 64 P: 50 [place]: 135 QRS: 10 QRSD: 102 T: 103 QT: 482 QTc: 498 Interpretive Statements Sinus rhythm T-wave abnormality, consider anterior ischemia Compared to ECG 04/04/2019 07:43:18 No significant change was found Electronically Signed On 04-09-2019 8:59:09 CDT by Tank Dunn [email or web address] <ELECTRONICALLY SIGNED> By: Tank Dunn MD, [facility] 04/09/19 0859 4 Tank Dunn MD, [facility] /EPI
[2019-05-02] MEDS ORDERED: LIPITOR 40 MG T40 M1 PO (10:21)
[2019-05-02] MEDS ORDERED: METOPROLOL TART25 MG PO (10:23)
[2019-05-02] MEDS ORDERED: BENADRYL25 MG PO (10:37)
[2019-05-02] MEDS ORDERED: LORCET 5-325 M1 EACH PO (10:37)
== END 2019-04-08 14:15 | disposition home or self-care (01) | DRG 236 ==
LOC: PRE 12:28 → ICU 04-03 05:57 → TBA 04-03 05:57 → PRE 04-03 09:46 → ICU 04-03 13:40 → PRE 04-03 15:57 → 2N 04-05 16:35 → ICU 04-05 16:36 → 2N 04-05 19:30
PROVIDERS: Internal Medicine; Nurse Practitioner Adult Health; Physician Assistant; ADMIT Surgery Vascular Surgery
DX: I25.10 Atherosclerotic heart disease of native coronary artery without angina pectoris (principal); D62 Acute posthemorrhagic anemia; J93.9 Pneumothorax, unspecified; I10 Essential (primary) hypertension; E78.00 Pure hypercholesterolemia, unspecified; M19.90 Unspecified osteoarthritis, unspecified site; G47.00 Insomnia, unspecified; J44.9 Chronic obstructive pulmonary disease, unspecified; E78.5 Hyperlipidemia, unspecified; Z91.030 Bee allergy status; Z79.82 Long term (current) use of aspirin; Z79.899 Other long term (current) drug therapy
CPT/HCPCS: 10078; 10081; 47000; 47001; 47002; 47297; 48888; 50249; 50409; 50456; 50498; 50668; 51301; 52131; 52259; 52314; 53327; 53358; 54118; 56455; 56524; 56525; 56526; 56527; 56528; 56531; 56534; 56668; 56760; 56898; 57093; 57116; 57167; 62110; 62950; 65003; 65020; 65047; 65090; 65120; 65135

== ENCOUNTER → 2019-05-02 | Outpatient (CLI) | payer OTHER ==
[~2019-05-02] MED LIST changes: +LIPITOR 40 MG T40 M1 PO; +LIPITOR40 MG PO; +LORCET 5-325 M1 EACH PO; +METOPROLOL TART25 MG PO
[2019-05-02 13:29] LABS: CREATININE 0.8 mg/dL (0.7-1.3)
== END ==
LOC: CAT 12:32
PROVIDERS: Surgery Vascular Surgery
DX: R91.8 Other nonspecific abnormal finding of lung field (principal); J92.9 Pleural plaque without asbestos; J43.9 Emphysema, unspecified; D73.89 Other diseases of spleen

== ENCOUNTER 2019-05-08 05:43 | Inpatient (IN) | payer OTHER ==
[2019-05-04 10:48] LABS: HEMATOCRIT 39.4 % (42.0-52.0); HEMOGLOBIN 12.6 gm/dL (14.0-18.0); MCHC 31.9 g/dL (28.0-37.0); MCV 84.6 fL (80.0-100.0); PLATELET COUNT 314 thou/uL (150-400); RBC 4.66 mil/uL (4.50-6.00); RDW 14.6 % (10.5-14.5); URINE BILIRUBIN NEGATIVE (Negative); URINE BLOOD NEGATIVE (Negative); URINE CLARITY CLEAR; URINE COLOR YELLOW; URINE GLUCOSE-RANDOM* NEGATIVE (Negative); URINE KETONES NEGATIVE (Negative); URINE LEUKOCYTES NEGATIVE (Negative); URINE NITRITE NEGATIVE (Negative); URINE PROTEIN (DIPSTICK) NEGATIVE (Negative); URINE UROBILINOGEN 0.2 E.U./dl (0.2-1.0); WBC 11.9 thou/uL (4.0-11.0)
[2019-05-04 11:01] LABS: APTT 27.3 Seconds (24.5-32.8); INR 1.1
[2019-05-04 11:07] LABS: ALBUMIN 3.5 g/dL (3.4-5.0); CALCIUM 9.7 mg/dL (8.5-10.1); CREATININE 0.9 mg/dL (0.7-1.3); POTASSIUM 4.6 mmol/L (3.5-5.1); TOTAL BILIRUBIN 0.4 mg/dL (<0.1-1.0); TOTAL PROTEIN 7.1 g/dL (6.4-8.2)
[2019-05-04 11:47] LABS: ABSOLUTE NEUTROPHILS 8.1 thou/uL (1.4-8.2); ATYPICAL LYMPHS 2 %; PLATELET ESTIMATE NORMAL
[~2019-05-08] VITALS: Ht 9 cm; Wt 69.4 kg
[2019-05-08 07:53] VITALS: BP 111/70
--- NOTE | 2019-05-08 19:19 | NUR ---
PATIENT ARRIVED TO THE ICU AT APPROX 1600 WITH OR STAFF AT BEDSIDE. PATIENT IS S/P THORACODOMY WITH LLL LOBECTOMY. LEFT CHEST TUBE HAS AIR LEAK AND IS TIDILING UPON ARRIVAL. CALLED AND SPOKE WITH DR AMANDA CHACKO AND MADE HER AWARE. NO NEW ORDERS RECIEVED. DRESSING TO LEFT BACK IS C/D/I. EXECUTIVE COORDINATOR PUMP INFUSING. PATIENT DENIES PAIN, VSS. RIGHT RADIAL ART LINE NOTED. JEFFERSON TO DD. NO FURTHER CONCERNS AT THIS TIME. WILL CONTINUE TO MONITOR AND CARE PER PLAN OF CARE.
[2019-05-09] VITALS (16 sets, daily range): BP systolic 91–116; BP diastolic 52–77
[2019-05-09 05:30] LABS: CALCIUM 8.3 mg/dL (8.5-10.1); CREATININE 0.9 mg/dL (0.7-1.3); HEMATOCRIT 34.6 % (42.0-52.0); HEMOGLOBIN 11.1 gm/dL (14.0-18.0); MCH 26.9 pg (26.0-34.0); MCHC 32.1 g/dL (28.0-37.0); POTASSIUM 4.2 mmol/L (3.5-5.1); RBC 4.12 mil/uL (4.50-6.00); RDW 14.6 % (10.5-14.5); WBC 15.5 thou/uL (4.0-11.0)
--- NOTE | 2019-05-09 11:22 | NUR ---
ASSUMED CARE @ 05/09/19, PT ASSESSMENTS AND VSS COMPLETE PER ICU PROTOCOL. PER DR COLLAZO'S ORDERS, PURVI PIPER DC'D AROUND 0817, RONNY DC'D AROUND 0845. CCU TRANSFER ORDERS RECIEVED AT THIS TIME.
--- NOTE | 2019-05-09 15:54 | NUR ---
Case opened to follow for dc planinng. Pt is known to cm s/p CABG last month. 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 He was able to dc home with outpt f/u after his heart surgery. His has been taking FMLA to help with his recovery. The pt is s/p thoracotomy with LLL resection. He is progressing and was transfered out of ICU today. He is on 2liters of o2 and ct is in place. He was up to the chair this afternoon. Will follow along and reasess for any dc needs.
[2019-05-10 00:26] VITALS: BP 102/65
[2019-05-10 04:27] VITALS: BP 97/58
--- NOTE | 2019-05-10 07:13 | NUR ---
ASSESSMENT DOCUMENTED.PT BEEN RESTING IN NO ACUTE DISTRESS.A/OX4.VSS.ON O2 AT 2LITERS PNC,SATS ADEQUATE.NO RESP DISTRESS NOTED.IS ENCOURAGED WITH COUGH AND DEEP BREATH.NEB TX PER RT.SURGICAL INCISION COVERED WITH DRESSING,CDI.CHEST TUBES TO SUCTION,VOIDS VIA URINAL.SR ON MONITOR.PAIN CONTROLLED WITH PAIN MEDS PER ORDERS. AT BEDSIDE.PT PROGRESSING WELL TO THE GOALS.WILL CONT WITH POC.
[2019-05-10 08:00] VITALS: BP 99/59
[2019-05-10 11:57] VITALS: BP 95/54
[2019-05-10 16:00] VITALS: BP 99/56
--- NOTE | 2019-05-10 18:46 | NUR ---
ASSUMED CARE AT SHIFT CHANGE, ASSESMENT CHARTED. NO DISTRESS NOTED TODAY. UP IN THE CHAIR, AND MEDICATED FOR INCISION PAIN. CHEST TUBE INTACT TO LET SIDE AND IS WATER SEAL. AND WILL CONTINUE WITH POC.
[2019-05-10 20:18] VITALS: BP 111/58
--- NOTE | 2019-05-10 22:08 | NUR ---
ASSUMED PT CARE AT 1900. VSS. PT A&0X4. COMPLAINED OF PAIN IN HIS LEFT SIDE, HYDROCODONE GIVEN PER MAR. PT IS STABLE, ASSESSMENTS ARE CHARTED. PT CARE TRANSFERED TO A DIFFERENT NURSE AT APPROX 2200.
[2019-05-11 04:16] VITALS: BP 109/62
--- NOTE | 2019-05-11 05:57 | NUR ---
ASSESSMENT CHARTED, MEDS GIVEN CHARTED. TOOK OVER CARE OF PATIENT AT 2200. PATIENT RESTING ON HIS SIDE DURING NIGHT. C/O PAIN 3/10 IN LEFT BACK INCISION SITE AND CT SITES. CHEST TUBES TO WATERSEAL. PT UP AT AIDA IN ROOM. PLAN OF CARE IS TO HOPEFULLY HAVE HIS CT'S OUT DURING DAY.
[2019-05-11 07:55] VITALS: BP 108/60
[2019-05-11 11:37] VITALS: BP 106/54
--- NOTE | 2019-05-11 13:10 | NUR ---
REPORT GIVEN TO GAVI ALVAREZ. PT SITTING UP IN CHAIR AND STATES HE WANTS TO GET CLEANED UP AFTER A NAP. CALL LIGHT IN REACH. VSS.
[2019-05-11 15:45] VITALS: BP 127/63
--- NOTE | 2019-05-11 18:38 | NUR ---
REPORT RECEIVED FROM TUNG ALVAREZ. PT ALERT AND ORIENTED. RECEIVED PRN PAIN MED WITH PARTIAL RELIEF. AMBULATED X1 THIS AFTERNOON. ENCOURAGED TO USE IS. NO CARDIAC OR RESPIRATORY DISTRESS NOTED. WILL CONTINUE TO MONITOR.
[2019-05-11 21:06] VITALS: BP 110/71
[2019-05-12 06:16] VITALS: BP 111/80
--- NOTE | 2019-05-12 06:25 | NUR ---
ASSESSMENTS CHARTED, MEDS CHARTED GIVEN. PATIENT MUCH MORE COMFORTABLE NOW THAT CHEST TUBES ARE OUT. DENIED PAIN ABOVE A ONE DURING THE ENTIRE SHIFT. ABLE TO SLEEP DURING THE NIGHT. ON ROOM AIR. USING IS FREQUENTLY GETTING IT UP TO 1000 CONSECUTIVELY. DRESSINGS ARE DRY AND INTACT. PATIENT IS LOOKING FORWARD TO A SHOWER TODAY AND POSSIBLY GOING HOME IF HIS CHEST XRAY LOOKS OK.
--- NOTE | 2019-05-12 10:58 | NUR ---
AAOX4. AT BEDSIDE. DISCHARGING TO HOME; ANXIOUS FOR SAME. NSR PER TELE. WALKS IN THE STEPHEN, NO SOB NOTED. WILL CONTINUE TO MONITOR CLOSELY.
--- NOTE | 2019-05-12 11:28 | O ---
[facility] [place] [address] OPERATIVE REPORT Name: MILLA PERALTA Room #: 218-P ADM IN M.R.#: [id number] Admission: 05/08/19 Attend Phys: Lavell Whelan MD Discharge: Date of : 53 Report #: [id number] THIS REPORT FOR: //name// CC: RADHA Wehlan Physician staff DATE OF SERVICE: 05/08/2019 PREOPERATIVE DIAGNOSIS: Left lower lobe lung lesion suspicious for cancer. POSTOPERATIVE DIAGNOSIS: Left lower lobe lung lesion suspicious for cancer. PROCEDURE: Bronchoscopy, mediastinoscopy, left thoracotomy with lower pulmonary lobectomy and wedge resection of contiguous spread into upper lobe. Placement of right radial arterial line. SURGEON: Lavlel Whelan MD. QA DEVELOPER: VARGHESE Shankar. ANESTHESIA: General. INDICATIONS: The patient is a 64-year-old, seen in my office for coronary artery disease. His preoperative evaluation revealed left lung tumor that was suspicious for cancer. Unfortunately, with severe 3-vessel coronary disease, the patient needed coronary bypass surgery and now that he has recovered from this, he appears for a definitive diagnosis and treatment of the lung lesion. FINDINGS AND TECHNIQUE: After general anesthesia was established, flexible diagnostic bronchoscopy was performed. No endobronchial lesions were noted. The patient was positioned and prepped and draped for mediastinoscopy. A low collar incision was made, pretracheal space was entered and the mediastinoscope was passed. Lymph nodes in station 7 and 4 were biopsied and submitted and these were found to be benign. Hemostasis was ascertained. The wound was closed in layers. The patient was positioned with left side up after a bronchial ronit tube was placed. Exposure was obtained through a thoracotomy using a rib sparing, nerve sparing approach in the fifth interspace. The tumor in the lower lobe was identified. Lymph nodes in the aortopulmonary [facility] [address] [place] [address] OPERATIVE REPORT Name: MILLA PERALTA Room #: 218-P [facility] IN ..#: [id number] Admission: 05/08/19 Attend Phys: Lavell Whelan MD Discharge: Date of : 53 Report #: [id number] window were sampled and sent for frozen section. These showed no evidence of cancer. The dissection began by dividing the pleural reflection. The tumor in the lower lobe seemed across the fissure with some contiguous spread, but ultimately dissection showed that the hilum was free. As such, the hilar structures were dissected and controlled. The incomplete fissure was expanded after we identified the interlobar pulmonary artery. This allowed us to identify pulmonary artery branches to the lower lobe and to ligate and divide them. The inferior pulmonary vein was circumdissected, stapled, and divided. The bronchus was circumdissected and stapled. We tested to make sure that there was good ventilation of the upper lobe and then stapled and divided the lower lobe bronchus. The area of contiguous spread into the upper lobe, lingular segment was defined and wedge resection was taken of this area and the tumor was submitted en bloc along with hilar lymph nodes which were dissected out, both with the specimen and separately. Hemostasis was ascertained in all areas. Bronchial stump was tested and found to be secure. Two chest tubes were brought through separate stab wounds. The chest was closed to continue our nerve sparing, rib sparing approach. The patient was taken to the recovery area in good condition having tolerated the procedure well. All counts reported as correct. It should be noted that prior to commencing the operation, a right radial artery cutdown was necessary to place an arterial line. This was done in the usual fashion with incision in the forearm and blunt dissection to identify the artery and placement of the arterial needle with securing the needle in place for the operation and for the postoperative period. <ELECTRONICALLY SIGNED> By: Lavell Whelan MD 05/12/19 1128 1342 1408 Lavell Whelan MD /nt
[2019-05-12 11:36] VITALS: BP 111/80
--- NOTE | 2019-05-28 10:06 | PATH ---
[facility] [place] [address] PATHOLOGY RPT PROCEDURE Name: LASHA PERALTA Room #: 218-P [facility] M.R.#: [id number] Admission: 05/08/19 Date of : 53 Discharge: 05/12/19 Report #: [id number] Path Case #: [id number] LCA Accession Number: [id number] . 01 Material submitted: . PART A: lymph node - MEDIASTINAL LYMPH NODE #7. Modifiers: #7 PART B: lymph node - MEDIASTINAL LYMPH NODE. Modifiers: #4 PART C: lymph node - LEFT LEVEL 5 LYMPH NODE. Modifiers: L5 PART D: lung - LEFT LOWER LOBE CORE BIOPSY. Modifiers: left, lower PART E: lymph node - LEVEL 10 LEFT LYMPH NODE. Modifiers: L10 PART F: lymph node - LEVEL 11 LEFT LYMPH NODE PART G: lung - LEFT LOWER LOBE LUNG. Modifiers: left, lower lobe PART H: lymph node - LEVEL 12 LEFT LYMPH NODE. Modifiers: left . 01 Clinical history: . Abnormal finding of lung field . 02 Frozen section diagnosis: . FROZEN SECTION DIAGNOSIS: (Magaly Kim M.D.) . FSA1. Mediastinal lymph node #7, biopsy: - Negative for metastatic carcinoma on FS slide. . FSB1. Mediastinal lymph node #4, biopsy: - Negative for metastatic carcinoma on FS slide. . FSC1. Left level 5 lymph node, biopsy: - Negative for metastatic carcinoma on FS slide. . FSD1. Lung, left lower lobe core biopsy: - MOST LIKELY NON-SMALL CELL CARCINOMA, 60% BIOPSY IS NON-NEOPLASTIC LUNG WITH CHRONIC INFLAMMATION. . FSE1. Left level 10 lymph node, biopsy: - No definitive metastatic carcinoma identified on FS slide; obscured by crush artifact and limiting interpretation. . These findings are discussed with Dr. Lavell Whelan in OR7 at [facility] and a written report is placed in the patient's chart. (IUV/db/principal security architect; 05/08/2019) . . FROZEN SECTION GROSS DESCRIPTION: A. Specimen A is received fresh from the OR labeled with the patient's name, and "mediastinal lymph node #7", consists of 2 brown-vinson fragments of tissue measuring 0.5 and 0.7 cm in greatest dimension. Submitted entirely for frozen section as FSA1, subsequently submitted for permanent section as A1. [address] [address] PATHOLOGY RPT PROCEDURE Name: LASHA PERALTA Room #: 218-[facility] M.R.#: [id number] Admission: 05/08/19 Date of : 53 Discharge: 05/12/19 Report #: [id number] Path Case #: [id number] . B. Specimen B is received fresh from the OR labeled with the patient's name, and "mediastinal lymph node #4", consists of multiple dark brown-vinson fragments of tissue measuring an aggregate of 1.5 x 1 x 0.5 cm in greatest dimension. Submitted entirely for frozen section as FSB1, subsequently submitted for permanent section as B1. . C. Specimen C is received fresh from the OR labeled with the patient's name, and "left level 5 lymph node" consists of an aggregate of approximately 1.8 x 2.0 x 0.5 cm of dark red tissue submitted for frozen section entirely as FSC1, subsequently submitted for permanent sections as C1. . D. Specimen D is received fresh from the OR labeled with the patient's name, and "left lower lobe core biopsy" consists of multiple thin cores of tissue ranging from 1.0 cm to about 1.2 cm. Submitted in entirety for frozen section as FSD1, subsequently submitted for permanent sections as D1. . E. Specimen E is received fresh from the OR labeled with the patient's name, and "level 10 left lymph node" consists of dark brown-vinson lymph node tissue measuring an aggregate of 2.5 x 2.0 x 0.5 cm. Submitted entirely for frozen section as FSE1, subsequently submitted for permanent sections as E1. . (IUV/db/principal security architect; 05/08/2019) . Frozen sections performed at [facility], [address] [place] [address]. IZV/LBQ . 02 Diagnosis: A. Lymph node (fragments of one), mediastinal lymph node #7, biopsy: - Reactive lymphoid tissue with pigmented macrophages. - Negative for malignancy (0/1). . B. Lymph node (fragments of one), mediastinal lymph node #4, biopsy: - Reactive lymphoid tissue with pigmented macrophages. - Negative for malignancy (0/1). . C. Lymph node (fragments of one), left level 5 lymph node, biopsy: - Reactive lymphoid tissue with pigmented macrophages. - Negative for malignancy (0/1). . D. Lung, left lower lobe, needle core biopsy: - INVASIVE MODERATELY DIFFERENTIATED ADENOSQUAMOUS CARCINOMA (PLEASE SEE COMMENT). [facility] [place] [address] PATHOLOGY RPT PROCEDURE Name: LASHA PERALTA Room #: 218[facility]#: [id number] Admission: 05/08/19 Date of : 53 Discharge: 05/12/19 Report #: [id number] Path Case #: [id number] . E. Lymph node (fragments of one), left level 10 lymph node, biopsy: - Reactive lymphoid tissue with pigmented macrophages. - Negative for malignancy (0/1). . F. Lymph node (fragments of one), left level 11 lymph node, biopsy: - Reactive lymphoid tissue with pigmented macrophages. - Negative for malignancy (0/1). . G. Lung, left lower lobe, lobectomy: - INVASIVE MODERATELY DIFFERENTIATED (FOCAL POORLY DIFFERENTIATED COMPONENT) ADENOSQUAMOUS CARCINOMA MEASURING 3.7 CM IN GREATEST DIMENSION. - MARGINS OF RESECTION FREE OF MALIGNANCY; CLOSEST VISCERAL PLEURAL MARGIN IS 0.5 MM AWAY. - Two reactive hilar lymph nodes with pigmented macrophages; negative for malignancy (0/2). . H. Lymph node (fragments of one), left level 12 lymph node, biopsy: - Reactive lymphoid tissue with pigmented macrophages. - Negative for malignancy (0/1). (IUV/db; 05/10/2019) . . Surgical Pathology Cancer Case Summary . Protocol posting date: November 2016 . LUNG: Procedure- Lobectomy Specimen Laterality- Left Tumor Site- Lower lobe of lung Tumor Size- 3.7 cm in greatest dimensions Tumor Focality- Single tumor Histologic Type- Adenosquamous carcinoma Histologic Grade- G2: Moderately differentiated Spread Through Air Spaces- Not identified Visceral Pleura Invasion- Not identified Lymphovascular Invasion- Not identified Direct Invasion of Adjacent Structures- No adjacent structures present Margins- All margins are uninvolved by tumor Margins examined: Bronchial, Vascular and Visceral Pleura Distance of invasive carcinoma from closest margin: 0.5 mm Specify closest margin: Visceral pleura Distance of invasive carcinoma from margin (centimeters): 2.2 cm Specify margin: Bronchial and Vascular Treatment Effect- No known presurgical therapy Regional Lymph Nodes- Number of Lymph Nodes Examined: 8 [facility] [address] [place] [address] PATHOLOGY RPT PROCEDURE Name: LASHA PERALTA Room #: 218[facility]#: [id number] Admission: 05/08/19 Date of : 53 Discharge: 05/12/19 Report #: [id number] Path Case #: [id number] Specify lizy station(s) examined: Mediastinal Levels 7,4,5,11 and 12 . . Pathologic Stage Classification (pTNM, AJCC 8th Edition) . TNM Descriptors- None Primary Tumor (pT) pT2a: Tumor >3 cm, but less than or equal to 4 cm in greatest dimension Regional Lymph Nodes (pN) pN0: No regional lymph node metastasis Distant Metastasis (pM): pMx (unknown) (IUV 05/10/2019) QMS 05/10/2019 1652 Local . 02 Comment: Properly controlled immunohistochemical stains are performed on the left lower lobe core biopsy (part D). The tumor shows strong nuclear reactivity with TTF-1 and p63 consistent with the diagnosis of adenosquamous carcinoma. The tumor shows scattered foci of sarcomatoid pleomorphic nuclei in approximately 5 to 10% of the neoplasm; however, much of the tumor is moderately differentiated. . Dr. Taniya Richardson has seen a pharmaceutical sales representative slide of the tumor and concurs with the diagnosis rendered. (IUV/db; 05/10/2019) . 02 Addendum: . Special studies report received from [facility], [address] [place] [address], [address], [place], [address], on case [id number], labeled with their number [id number], dated 05/19/2019. . PD-L1 Immunohistochemistry Analysis . Body site: Lung, left lower lobe, lobectomy. Specimen received: 1 paraffin block labeled: [id number]. . 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 . Results Table PD-L1 - KEYTRUDA (R) Tumor Interpretation Proportion [id number] 90% High Expression . Reference Ranges PD-L1 protein expression is determined by using the Tumor Proportion Score (TPS), which is the percentage of at least 100 viable tumor cells showing [address] [address] PATHOLOGY RPT PROCEDURE Name: KATHRYNLASHA Natalie Room #: 218-P DIS IN M.R.#: [id number] Admission: 05/08/19 Date of : 53 Discharge: 05/12/19 Report #: [id number] Path Case #: [id number] complete or partial membrane staining at any intensity. . TPS less than 1%: No Expression . TPS greater than or equal to 1%: Expression - Eligible for KEYTRUDA (pembrolizumab) monotherapy. . TPS greater than or equal to 50%: High Expression - Eligible for KEYTRUDA (pembrolizumab) monotherapy. . Note: PD-L1 expression level TPS greater than or equal to 50% may be of interest but does not determine eligibility for KEYTRUDA monotherapy. . . . at [employer]. Shahzad Ledesma M.D. Pathologist . Tests PD-L1 IHC Analysis . Intended Use: PD-L1, 22C3 pharmDx is FDA approved for in vitro diagnostic use as a qualitative immunohistochemical assay using Monoclonal Mouse Anti-PDL1, Clone 22-C3 intended for use in the detection of PD-L1 in formalin-fixed paraffin-embedded (FFPE) non-small cell lung cancer (NSCLC) using the [employer] EnVision FLEX visualization system on [employer] Link 48. PD-L1 22C3 pharmDx is indicated as an aid in identifying NSCLC patients for treatment with KEYTRUDA (pembrolizumab) monotherapy. See the KEYTRUDA product label for specific clinical circumstances guiding PD-L1 testing. PD-L1, 22C3 pharmDx is a trademark of [employer], an [employer]. . References: Jonelle TS, Phuc Y-L, Favian I, et al: Pembrolizumab versus chemotherapy for previously untreated, HP-V8-zpcymywkgt, locally advanced or metastatic txo-mqiyn-wacb lung cancer (KEYNOTE-042): a randomised, open-label, controlled, phase 3 trial. Lancet 2018September 21; Online(35) 1-12. . Sherman RS, Richard P, Pearl D-W, et al: Pembrolizumab versus docetaxel for previously treated, UA-Q7-ufjjgcnu, advanced tjd-xitlg-xlkb lung cancer (KEYNOTE-010): a randomized controlled trial. Lancet 2015 Jun 07; Online(98) 3936-9. . Alex EB, Mery NA, Linda R, et al: Pembrolizumab for the Treatment of Llm-Aayry-Bbfx Lung Cancer. N Engl J Med 2015 November 07; 372:8720-4502. . [facility] [address] [place] [address] PATHOLOGY RPT PROCEDURE Name: LASHA PERALTA Room #: 218-P DIS IN .R.#: [id number] Admission: 05/08/19 Date of : 53 Discharge: 05/12/19 Report #: [id number] Path Case #: [id number] Please contact [employer] for additional references. . Disclaimer This Test was performed by [employer]. at [facility], [address]. [facility] is a business unit of [employer] a wholly-owned subsidiary of [employer]. . . Any image(s) that accompany this report is/are a pharmaceutical sales representative image(s) only and should not be used to render a diagnosis. . This interpretation is contingent on the specimen and the clinical information received. . Known positive cells or tissues are employed with each test and examined to ensure positivity. Positive and negative internal controls, if present, react appropriately. . This analysis is an adjunct to the evaluation of the referring physician and does not represent a final diagnosis. . The immunohistochemistry tests performed at [employer] were validated on tissue fixed in 10% neutral buffered formalin. The performance characteristics of the tests performed on tissue processed in other fixatives is not known. . This assay has not been validated on decalcified tissues. Results should be interpreted with caution if this specimen was decalcified given the likelihood of decreased staining or false negativity on decalcified specimens. . A complete copy of the report is on file. . Professional services performed by [employer] at [facility] [address], [place] [address]. Technical services performed by [employer] at [facility] [address], [address], [place] [address]. . (IUV:amj 05/21/2019) . . . . . Special studies report received from [facility], [address] [place] [address], [facility] [address], [place], [address], on case [id number], [place] [address] PATHOLOGY RPT PROCEDURE Name: LASHA PERALTA Room #: [facility] ..#: [id number] Admission: 05/08/19 Date of : 53 Discharge: 05/12/19 Report #: [id number] Path Case #: [id number] labeled with their number [id number], dated 05/21/2019. . EGFR Gene Mutation Analysis . INTERPRETATION: Negative for EGFR Mutation. . Indication for Study: Adenosquamous Carcinoma . Specimen Site and Type: Paraffin-Embedded Tissue-Lung, LLL . Nucleotide Change: . Amino Acid Change: . Comments: No mutations were detected within the analyzed region of the EGFR gene in the sample provided for analysis. Less than 5% of non-small cell lung carcinoma patients without identifiable mutations are reported to be responsive to EGFR tyrosine kinase inhibitor therapies. Results should be interpreted in conjunction with clinical and other laboratory findings for the most accurate interpretation. . A subgroup of non-small cell lung cancer (NSCLC) patients has shown clinical responsiveness to the epidermal growth factor receptor (EGFR) inhibitors gefitinib (IRESSA) and erlotinib (Tarceva), including never smokers, individuals of ethnicity, and those with adenocarcinoma histology. In the majority of patients with highly responsive tumors, the tumor contains a somatic mutation within the EGFR tyrosine kinase domain. The presence of a somatic EGFR mutation is significantly associated with response to gefitinib and erlotinib, and is strongly predictive of prolonged survival in NSCLC patients. . T790M mutation had been tested but was not detected in this submitted specimen. . This assay is able to detect 5% mutation in a background of wild-type DNA. . . See report [id number] for further information. See FISH report [id number] for further information. See report [id number] for further information. See report [id number] for further information. . at [employer]. Nikhil Peace, Ph.D., [employer] DABMG, DABCC, DLLisbeth, M(ASCP)cm, NILSON(ASCP)[place] [address] PATHOLOGY RPT PROCEDURE Name: LASHA PERALTA Room #: 218[facility] M.R.#: [id number] Admission: 05/08/19 Date of : 53 Discharge: 05/12/19 Report #: [id number] Path Case #: [id number] Methodology: Genomic DNA was isolated from the provided tumor specimen. Exons 18 through 21 of the EGFR gene were subjected to SNaPShot multiplex PCR and primer extension for mutation detection. . Table: This Assay Can Detect the Following Mutations EGFR EGFR Codon Mutation Approximate % of all EGFR Exon Mutations 18 E709 E709K,E709Q 1% G719 G719S,G719C,G719A,G719D 2-5% 19 Insertions 18bp ins 1% Deletions 9,12,15,18,24 bp del 45% 20 Insertions 3,6,8,12 bp ins 5-10% S768 S768I 1-2% R776 R776C <1% T790 T790M 2% 21 L858 L858R 40% A859 A859T <1% L861 L861Q,L861R 2-5% * This Assay does not distinguish between the 18bp insertion and deletions at nucleotide position 2235 and 2237 . References: 1. Christos PA, Sinai JA, Kedar BE. Epidermal Growth Factor Receptor Mutations in Gpa-Ctqqc-Vsqq Lung Cancer: Implications for Treatment and Tumor Biology. J. Clin. Oncol. 2005; 23:4669-6617. 2. Heide ORTEGA et al. A Platform for Rapid Detection of Multiple Oncogenic Mutations with Relevance to Targeted Therapy in Lkx-Wjfok-Ljpl Lung Cancer. J. Mol. Diagn. 2011;13(1):74-84. . Disclaimer This Test was performed by [employer] at [facility] [address], [address]. [facility] is a business unit of [employer] a wholly-owned subsidiary of [employer]. . . Any image(s) that accompany this report is/are a pharmaceutical sales representative image(s) only and should not be used to render a diagnosis. . This test was developed and its performance characteristics determined by [employer] It has not been cleared or approved by the Food and Drug Administration. . A complete copy of the report is on file. . Professional services performed by [employer] at [address] [place] [address] PATHOLOGY RPT PROCEDURE Name: LASHA PERALTA Room #: 218[facility]#: [id number] Admission: 05/08/19 Date of : 53 Discharge: 05/12/19 Report #: [id number] Path Case #: [id number] [address] [place] [address] [address], [place] [address]. Technical services performed by [employer] at [address] [place] [address]. . (IUV:amj 05/21/2019) . . . . . Special studies report received from [facility], [address] [place] [address], on case [id number], labeled with their number [id number], dated 05/21/2019. . BRAF Mutation Detection by PCR-SNAPSHOT Analysis . INTERPRETATION: Negative for a V600 BRAF mutation . Indication for Study: Adenosquamous Carcinoma . Specimen Type: Paraffin-Embedded Tissue-Lung, LLL . Comments: Somatic mutations in the BRAF oncogene are frequently found in human cancers, such as melanoma (approximately 40-60%), colorectal (approximately 5-15%), lung (approximately 1-3%), ovary (approximately 35%), thyroid carcinomas (approximately 45%) and hairy cell leukemia (approximately 100% in limited studies). Over 90% of the mutations are the V600E (1799T>A) mutation, but other V600 mutations have been reported. A negative result does not rule out the presence of other non-V600 mutations. Correlation with other clinical findings is needed for the most accurate interpretation. . This test detects multiple V600 mutations in BRAF, including V600E, V600K and other V600 variants. . See report [id number] for further information. See FISH report [id number] for further information. See report [id number] for further information. See Molecular report [id number] for further information. . . Analytical Results: Assay Type Detection Parameters Result BRAF Gene Mutation Exon 15 V600 Negative . at [employer] [place] [address] PATHOLOGY RPT PROCEDURE Name: LASHA PERALTA Room #: [facility] .R.#: [id number] Admission: 05/08/19 Date of : 53 Discharge: 05/12/19 Report #: [id number] Path Case #: [id number] Nikhil Peace, Ph.D., FABRICIO DABMG, DABCC, DLMcm, M(ASCP)cm, MB(ASCP)cm . . Methodology: Genomic DNA was isolated from the provided specimen. Exon 15 of the BRAF gene was subjected to PCR and SNaPShot multiplex primer extension for mutation detection. This assay is able to detect 5% mutation in a background of wild-type DNA. . Intended Use: The detection of a BRAF V600 gene mutation aids in the specific diagnosis of certain cancers, such as hairy cell leukemia, and help to identify patients with worse prognosis and who may be responsive to certain therapies in a variety of cancers. . References: Love Amos et al. (2014) Integrating molecular biomarkers into current clinical management in melanoma. Methods Mol. Biol. . . Natalie Chua. et al. (2014) Resistance to anti-EGFR therapy in colorectal cancer: from heterogeneity to convergent evolution. Cancer Disco. 4:1-12. . NCCN Clinical Practice Guidelines in OncologyTM for Colon Cancer v.2 2015. . NCCN Clinical Practice Guidelines in OncologyTM for Hairy Cell Leukemia. v.4 2014. . NCCN Clinical Practice Guidelines in OncologyTM for Rectal Cancer v.2 2015. . NCCN Clinical Practice Guidelines in OncologyTM for Thyroid Carcinoma. v.2 2014. . NCCN Clinical Practice Guidelines in OncologyTM for Non-Small Cell Lung Cancer. v.1 2014. . Javier Nesbitt. et al. (2012) Lung cancers with acquired resistance to EGFR inhibitors occasionally harbor BRAF gene mutations but lack mutations in KRAS, NRAS, or MEK1. Proc. Natl. Acad. Sci. USA. 109:T1186-E5345. . Natalie Gómez. et al. (2013) Clinicopathological relevance of BRAF mutations in human cancer. Pathology 45: 346-356. . Freda Lopez. and Chiara Ma. (2010) BRAF mutation testing in colorectal cancer. Arch. Pathol. Lab. Med. [phone]. . Disclaimer [address] [address] PATHOLOGY RPT PROCEDURE Name: LASHA PERALTA Room #: 218-P [facility] IN M.R.#: [id number] Admission: 05/08/19 Date of : 53 Discharge: 05/12/19 Report #: [id number] Path Case #: [id number] This Test was performed by [employer] at [address] [place] [address]. [employer] is a business unit of [employer] a wholly-owned subsidiary of [employer]. . . This test was developed and its performance characteristics determined by [employer]. It has not been cleared or approved by the Food and Drug Administration. . A complete copy of the report is on file. . Professional services performed by [employer] at [address] [place] [address], [address] [address]. Technical services performed by [employer] at [address] [place] [address], [address] [address]. . (IUV:amj 05/21/2019) . AZJ/05/21/2019 Addendum Electronically Signed by Magaly Kim MD, Pathologist Addendum #2: Special studies report received from [facility], [address] [place] [address], [address] [address], on case [id number], labeled with their number [id number], dated 05/24/2019. . Fluorescence in situ Hybridization (FISH) Report ALK Analysis . RESULT: No Evidence of ALK Gene Rearrangement detected by FISH nuc aundrea(ALKx3 approximately 4)(23/50) . Specimen Type: Tissue, Left Lung . Specimen Fixative Type: 10% Neutral buffered formalin . Indication for Study: Adenosquamous Carcinoma . INTERPRETATION: Fluorescence in situ hybridization (FISH) analysis was performed on paraffin embedded tissue using an ALK Break Apart DNA probe (FDA approved kit, [employer]) for the detection of rearrangements involving the ALK gene. . Fifty interphase nuclei were examined and no evidence of ALK specific gene rearrangement was detected. However, 46.0% of the cells showed one or more additional fusion signals for the ALK DNA sequence located at 2p; likely [facility] [address] [place] [address] PATHOLOGY RPT PROCEDURE Name: KATHRYNLASHA Room #: 218[facility] IN [facility].#: [id number] Admission: 05/08/19 Date of : 53 Discharge: 05/12/19 Report #: [id number] Path Case #: [id number] representing an aneuploidy population with extra copies of chromosome 2/2p ALK region. . Genetic changes other than those assayed here cannot be ruled out on the basis of this testing. Correlation with clinical and pathological findings is suggested for a complete interpretation of the results. . See FISH report [id number] for further information. See report [id number] for further information. See report [id number] for further information. See Molecular report [id number] for further information. . at [employer]. Claudia Alex, Ph.D., [facility] Director of Cytogenetics and Molecular Oncology . Methodology: FISH was performed using ALK Break Apart FISH Probe Kit (FDA approved, [employer] A minimum of fifty invasive tumor cells were examined from areas that were delineated by a Pathologist from a corresponding H/E slide. A classification of each nucleus as positive or negative is recorded according to operations coordinator's instruction. The results are calculated as a percentage of the total positive cells to total cell analyzed. The normal cutoff was established as 15% using NSCLC FFPE tissue specimen. A negative result is reported when a sample with <15% rearranged cells and a positive result is defined when a sample shown greater than or equal to 15% cells with ALK gene rearrangements. A result is considered uninformative when there are less than 50 invasive tumor cells for FISH analysis. . Intended Use: The ALK Break Apart FISH Probe procedure is a qualitative test to detect rearrangements involving the ALK gene via fluorescence in situ hybridization (FISH) in FFPE NSCLC tissue specimens to aid in identifying those patients eligible for treatment with XALKOR (crizotinib). It is intended for use only on 10% neutral buffered formalin fixed paraffin-embedded NSCLC tissue. The optimal fixation time for tissue is 6-48 hours. The test is for prescription use only. . Disclaimer This Test was performed by [employer]. at [address] [place] [address], [address]. [facility] is a business unit of [employer] a wholly-owned subsidiary of [employer]. . . This assay has not been validated on decalcified tissues. Results should [address] [address] PATHOLOGY RPT PROCEDURE Name: LASHA PERALTA Room #: 218-P DIS IN M.R.#: [id number] Admission: 05/08/19 Date of : 53 Discharge: 05/12/19 Report #: [id number] Path Case #: [id number] be interpreted with caution if this specimen was decalcified given the likelihood of false negativity on decalcified specimens. . Any image(s) that accompany this report is/are a pharmaceutical sales representative image(s) only and should not be used to render a diagnosis. . A complete copy of the report is on file. . Professional services performed by [employer]. at [address] [place] [address], [place] [address], [place] [address]. Technical services performed by [employer] at [address] [place] [address], [place] [address]. . (IUV:amj 05/25/2019) . . . . . Special studies report received from [facility], [address] [place] [address], [facility] [address], on case [id number], labeled with their number [id number], dated 05/24/2019. . Fluorescence in situ Hybridization (FISH) Report [employer] Analysis . RESULT: Negative for ROS1 gene rearrangement . Specimen Type: Tissue, Left Lung . Indication for Study: Adenosquamous carcinoma . INTERPRETATION: Fluorescence in situ hybridization (FISH) analysis was performed on this patient's paraffin embedded tissue specimen using a dual color break apart DNA probe for ROS1. . One hundred interphase nuclei were examined and no evidence of a ROS1 gene specific rearrangement (split signal pattern) was detected. 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 . Genetic changes other than those assayed here cannot be ruled out on the basis of this testing. Correlation with clinical and other pathological findings is suggested for a complete interpretation of these results. . See report [id number] for further information. See report [id number] [facility] [place] [address] PATHOLOGY RPT PROCEDURE Name: LASHA PERALTA Room #: 218-P [facility] IN M.R.#: [id number] Admission: 05/08/19 Date of : 53 Discharge: 05/12/19 Report #: [id number] Path Case #: [id number] for further information. See report [id number] for further information. See Molecular report [id number] for further information. . The following [employer] FISH analysis was performed on this patient's specimen: Probe Detection Parameters Result ISCN ROS1 (6q22) Detects a rearrangement Not Detected nuc aundrea(3'ROS1, of the ROS1 gene 5'ROS1) x3 approximately 4 (3'ROS1 con 5'ROS1 x3 approximately 4) () . at [employer] Claudia Alex, Ph.D., [facility] Director of Cytogenetics and Molecular Oncology . . Methodology: The patient specimen is processed onto a glass slide. Fluorescent DNA probe(s) is(are) applied to the cells on the slide under conditions of denaturation followed by hybridization. Stringency washes are applied and the slide is subsequently counterstained. A minimum of 100 interphase nuclei are analyzed unless otherwise indicated above. . References: Susie K, Galvin AT, Ou SH, et al. ROS1 rearrangements define a unique molecular class of lung cancers. J Clin Oncol, 2012;30:863-70. . Kamar PALOMINO, Shameka SIMS, Tong YGeethaJ, et al. Crizotinib in ROS1-rearranged jds-ddopa-scjp lung cancer. N Engl J Med, 2014;371:1963-71 . Disclaimer This Test was performed by [employer]. at [address], [address]. . [facility] is a business unit of [employer] a wholly-owned subsidiary of [employer]. . This assay has not been validated on decalcified tissues. Results should be interpreted with caution if this specimen was decalcified given the likelihood of false negativity on decalcified specimens. . Any image(s) that accompany this report is/are a pharmaceutical sales representative image(s) only and should not be used to render a [place] [address] PATHOLOGY RPT PROCEDURE Name: LASHA PERALTA Room #: 218-P DIS IN M.R.#: [id number] Admission: 05/08/19 Date of : 53 Discharge: 05/12/19 Report #: [id number] Path Case #: [id number] This test was developed and its performance characteristics determined by [employer] It has not been cleared or approved by the Food and Drug Administration. . A complete copy of the report is on file. . Professional services performed by [employer]. at [address], [place] [address]. Technical services performed by [employer]. at [address], [place] [address]. . (IUV:amj 05/25/2019) . AZJ/05/25/2019 Addendum Electronically Signed by Magaly Kim MD, Pathologist . 02 Electronically signed: . Magaly Kim MD, Pathologist NPI- [id number] . 01 Gross description: . A-E. SEE FROZEN SECTION GROSS DESCRIPTION. . F. The specimen is received in formalin, labeled "Lasha Peralta, level 11 left lymph node". Received is a segment of lizarraga-vinson lobulated tissue measuring 1.4 x 1.2 x 0.6 cm in greatest dimensions. Sectioning reveals a single lymph node measuring 1.0 cm displaying pale lizarraga to anthracotic cut surfaces. The lymph node is bisected and entirely submitted in cassette F1. . G. The specimen is received in formalin, labeled "Lasha Peralta, left lower lobe lung". Received is a 193 g lobectomy specimen with a stapled margin of resection measuring 14.8 x 12.7 x 5.2 cm in greatest dimensions. The elliott are removed and the new margin is inked black. The pleural surface is pale vinson to pink-lizarraga in appearance with a slight amount of overlying exudate. Sectioning reveals a well-demarcated pale vinson to pink-vinson mass measuring 3.7 x 3.4 x 2.3 cm in greatest dimensions. The opposing pleural surface is inked blue. Further sectioning reveals the mass to grossly abut the inked pleural surface (blue), is 0.3 cm from the inked surgical margin (black), adjacent to the bronchial and adjacent vessels, and 2.2 cm from the bronchial resection margin. The remainder of the specimen displays light brown to red-brown lung parenchyma with no additional nodules or lesions noted grossly. Loosely attached to the hilar aspect, there is a possible lymph node identified measuring 1.9 cm in maximum dimensions displaying pale lizarraga to black cut surfaces. The specimen is submitted representatively as follows: . G1 bronchial margin, en face [address] [address] PATHOLOGY RPT PROCEDURE Name: LASHA PERALTA Room #: 218-P [facility] IN M.R.#: [id number] Admission: 05/08/19 Date of : 53 Discharge: 05/12/19 Report #: [id number] Path Case #: [id number] G2 neck section of bronchial and adjacent vascular margins G3 pharmaceutical sales representative section of mass to show relationship with pleural surface (blue ink) G4 pharmaceutical sales representative section of mass to show relationship with surgical margin (black ink) G5-G6 pharmaceutical sales representative sections of mass to show relationship with adjacent bronchial and vascular tissue G7 uninvolved parenchyma G8-G9 entire possible lymph node from hilar aspect, quadrisected. . H. The specimen is received in formalin, labeled "Lasha Peralta, level 12 left lymph node". Received is a segment of lizarraga-brown lobulated tissue measuring 1.1 x 0.8 x 0.4 cm in greatest dimensions. Sectioning reveals a single lymph node measuring 1.1 cm displaying pale lizarraga to anthracotic cut surfaces. The lymph node is bisected and entirely submitted in cassette H1. (CAA; 05/09/2019) QAC/LBQ 05/10/2019 1432 Local . 02 Pathologist provided ICD-10: C34.32 . 02 CPT . 827041, 991502, 825633, 714954, 926541, 349992, 174874, 025761, 480031, 261968, 203462, 450472, H17259, C99367 Performed at: [address] [facility], [place], [place] [id number] MD Rohit Lua MD Phone: [phone] Performed at: [address] [id number] MD Magaly Kim MD Phone: [phone]
== END 2019-05-12 12:50 | disposition home or self-care (01) | DRG 165 ==
LOC: ICU 05:43 → TBA 05:43 → PRE 07:47 → ICU 16:17 → PRE 19:10 → 2N 05-09 14:45
PROVIDERS: Physician Assistant; ADMIT Surgery Vascular Surgery
PROC: 03HY32Z Insertion of Monitoring Device into Upper Artery, Percutaneous Approach (ICD-10-PCS; principal; 2019-05-08)
PROC: 0BBJ0ZZ Excision of Left Lower Lung Lobe, Open Approach (ICD-10-PCS; principal; 2019-05-08)
DX: C34.32 Malignant neoplasm of lower lobe, left bronchus or lung (principal); I25.10 Atherosclerotic heart disease of native coronary artery without angina pectoris; J44.9 Chronic obstructive pulmonary disease, unspecified; M19.90 Unspecified osteoarthritis, unspecified site; E78.00 Pure hypercholesterolemia, unspecified; Z95.1 Presence of aortocoronary bypass graft; Z79.899 Other long term (current) drug therapy; Z79.82 Long term (current) use of aspirin; Z87.891 Personal history of nicotine dependence
CPT/HCPCS: 10078; 10081; 47405; 50010; 50101; 50290; 50386; 50403; 50417; 50455; 50497; 50607; 50649; 50740; 51301; 52191; 52301; 52303; 54118; 56524; 56525; 56526; 56527; 56528; 62110; 62900; 65020; 65040; 65075; 65105; 70005

== ENCOUNTER 2019-05-26 18:08 | Inpatient (IN) | payer OTHER ==
[~2019-05-26] VITALS: Ht 175.3 cm; Wt 58.7 kg
[2019-05-26 21:21] LABS: BE(vivo) -0.8 mmol/L (-2 to +3); HCO3 24.1 mmol/L (22.0-26.0); PCO2 40.8 mmHg (35.0-45.0); PO2 113.6 mmHg (80.0-100.0); sO2 98.1 % (92.0-98.0)
[2019-05-26 21:55] VITALS: BP 164/87
--- NOTE | 2019-05-26 22:00 | NUR ---
Pt transferred from CCU to ICU room [address] scan of chest. Pt very anxious, SOA on 100% NRB mask, tachycardic at 130'-140's. Stat EKG done, breathing treatment, and education on plan of care given to pt and . Consults called and orders received.
[2019-05-26 22:25] VITALS: BP 148/74
[2019-05-26 22:55] VITALS: BP 141/66
[2019-05-26 23:25] VITALS: BP 118/67
[2019-05-26 23:55] VITALS: BP 117/61
[2019-05-27] VITALS (22 sets, daily range): BP systolic 93–115; BP diastolic 32–72
[2019-05-27 01:48] LABS: HEMATOCRIT 33.5 % (42.0-52.0); HEMOGLOBIN 10.9 gm/dL (14.0-18.0); MCH 26.5 pg (26.0-34.0); MCHC 32.5 g/dL (28.0-37.0); MCV 81.4 fL (80.0-100.0); RBC 4.11 mil/uL (4.50-6.00); RDW 14.7 % (10.5-14.5); WBC 8.4 thou/uL (4.0-11.0)
[2019-05-27 01:53] LABS: CALCIUM 8.5 mg/dL (8.5-10.1); CREATININE 0.8 mg/dL (0.7-1.3)
--- NOTE | 2019-05-27 04:02 | NUR ---
Pt has been resting comfortably since midnight. O2 titrated down to 8 L HFC, respiratory rate 24-29 (down from 30's) with no accessory muscle use. O2 sat > 95%. Heart rate has come down to 80's to 90's from 130's -140's. Breath sounds remain coarse with scattered crackles.
[2019-05-27 05:54] LABS: URINE BILIRUBIN NEGATIVE (Negative); URINE BLOOD NEGATIVE (Negative); URINE CLARITY CLOUDY; URINE COLOR YELLOW; URINE GLUCOSE-RANDOM* NEGATIVE (Negative); URINE KETONES NEGATIVE (Negative); URINE LEUKOCYTES-REFLEX NEGATIVE (Negative); URINE NITRITE-REFLEX NEGATIVE (Negative); URINE PROTEIN (DIPSTICK) 1+ (Negative)
--- NOTE | 2019-05-27 06:13 | NUR ---
O2 titrated down to 6 L HFC at 0500. Sat remains > 95%.
[2019-05-27 06:16] LABS: AMORPHOUS URATES Many /LPF (None Seen); BACTERIA-REFLEX 1-9 Few /HPF (None Seen); CASTS None Seen /LPF (None Seen); SQUAMOUS None Seen /LPF (0-3); URINE RBC None Seen /HPF (0-2); URINE WBC-REFLEX None Seen /HPF (0-5)
--- NOTE | 2019-05-27 11:18 | EKG ---
[address] [address] ELECTROCARDIOGRAM REPORT Name: MILLA PERALTA Room #: 244-P ADM IN M.R.#: [id number] Admission: 05/26/19 Attend Phys: Cristian Lerma Discharge: Date of : 53 Report #: [id number] THIS REPORT FOR: //name// [facility] Test Date: 2019-05-26 Test Time: 22:34:25 Pat Name: MILLA PERALTA Department: Room: 244 P Gender: M Track Man: . : 1955 Requested By: Cristian Lerma Order Number: [id number] MD: Venu Zaman Measurements Intervals [place] Rate: 133 P: SD: QRS: 0 QRSD: 83 T: 73 QT: 329 QTc: 490 Interpretive Statements Sinus rhythm Excessive motion artifact and wander. Baseline wander in lead(s) II,aVF,V1,V4 Compared to ECG 04/07/2019 07:25:46 Electronically Signed On 05-27-2019 11:18:16 MINE PROMOTOR by Vneu Zaman [email or web address] <ELECTRONICALLY SIGNED> By: Venu Zaman MD 05/27/19 1118 2234 2234 Venu Zaman MD /EPI
--- NOTE | 2019-05-27 12:45 | NUR ---
RESP EVEN AND UNLABORED ON 6L/NC, SR, TOLERATING REGULAR DIET, VOIDING ADEQUATE AMOUNTS LEIF URINE. AT BEDSIDE PROVIDING SUPPORT. DR. COLLAZO PRESENT THIS AM AND DISCUSSED RISKS/BENEFITS OF THORACOTOMY. DR. BARAHONA PRESENT TO SEE PT.
--- NOTE | 2019-05-27 17:52 | NUR ---
complete bath/bed change, teeth brushed. removed stitch from left arm from previous hermelinda with site dk red only at immediate site, no redness around site, no drainage or odor, well tolerated. after discussing pros/cons of wearing scd's, pt consented to have them applied.
[2019-05-28] VITALS (16 sets, daily range): BP systolic 95–134; BP diastolic 55–83
[2019-05-28 05:19] LABS: HEMATOCRIT 28.6 % (42.0-52.0); HEMOGLOBIN 9.5 gm/dL (14.0-18.0); MCH 26.6 pg (26.0-34.0); MCHC 33.1 g/dL (28.0-37.0); MCV 80.4 fL (80.0-100.0); RBC 3.55 mil/uL (4.50-6.00); RDW 14.9 % (10.5-14.5); WBC 8.9 thou/uL (4.0-11.0)
[2019-05-28 05:40] LABS: CREATININE 0.7 mg/dL (0.7-1.3)
--- NOTE | 2019-05-28 07:12 | NUR ---
SEE [employer] FOR ASSESSMENT PT SLEPT DURING NOC. CONT ON 6LNC. NO SOA. MONITOR SHOWS SR WITH PVC. AM k 3.0---kCL INFUSING ORDERED. HIBICLENS BATH GIVEN, PRE-OP CHECKLIST CHECKED. CONT PLAN OF CARE
--- NOTE | 2019-05-28 10:20 | NUR ---
ALERT AND ORIENTED AND DENIES PAIN. VITALS STABLE. KEPT NPO SINCE 0400 FOR SURGERY LATER TODAY. PREOP CHECK LIST COMPLETED BY NIGHT RN. PATIENT TAKEN TO PREOP AT 1005.
--- NOTE | 2019-05-28 12:00 | NUR ---
PATIENT IN SURGERY, NO NOON ASSESSMENT ASSESSMENT COMPLETED.
--- NOTE | 2019-05-28 18:09 | NUR ---
PATIENT BACK IN ROOM FROM PACU AT 1750, DROWSY BUT AROUSABLE AND IS ORIENTED WHEN AWAKE. RECEIVED PAIN MEDS IN PACU PER REPORT. A-LINE LEFT RADIAL, CHEST TUBES LEFT LATERAL TO SUCTION, AIR LEAK AND TIDALING NOTED. VITAL STABLE. RONNY ESCOBAR DD. SPOUSE ALREADY UPDATED BEFORE PATIENT BACK IN ROOM AND WENT OFF TO GUEST ROOM. WILL CONTINUE TO MONITOR CLOSELY.
[2019-05-29] VITALS (19 sets, daily range): BP systolic 109–133; BP diastolic 64–83
[2019-05-29 05:34] LABS: HEMATOCRIT 26.9 % (42.0-52.0); HEMOGLOBIN 8.7 gm/dL (14.0-18.0); MCH 26.3 pg (26.0-34.0); MCHC 32.3 g/dL (28.0-37.0); MCV 81.2 fL (80.0-100.0); RBC 3.31 mil/uL (4.50-6.00); RDW 14.9 % (10.5-14.5); WBC 13.3 thou/uL (4.0-11.0)
[2019-05-29 06:04] LABS: CALCIUM 8.2 mg/dL (8.5-10.1); CREATININE 0.7 mg/dL (0.7-1.3)
[2019-05-29 06:10] LABS: POTASSIUM 4.1 mmol/L (3.5-5.1)
--- NOTE | 2019-05-29 07:56 | NUR ---
Pt TO SURGERY ON 05/28/19. WILL AWAIT NEW ORDERS TO RESUME
--- NOTE | 2019-05-29 10:04 | NUR ---
Patient admits from home in [place]. Patient a/Ox4. he had a VAT currently has chest tubes. 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 No hx of DME and cont to drive. at bedside. She is able to assist at dc. Patients PCP Dr Langston. Patient with 4 steps to enter home once inside then all needs on one level. Casemgt following for dc planning.
--- NOTE | 2019-05-29 17:46 | NUR ---
ASSESSMENTS AND INTERVENTIONS DOCCUMENTED. PATIENT RESTING THROUGH OUT SHIFT. PATIENT AND FAMILY EDUCATED ABOUT POC. ART LINE REMOVED, PER ABUNDIO. JEFFERSON REMOVED. PATIENT WORKING WITH PT/OT. REPORT GIVEN TO CCU RN GAVI.
--- NOTE | 2019-05-29 18:34 | NUR ---
VT TRANSFERED FROM ICU. ALERT AND ORIENTED. IN STABLE CONDITION. DRAINAGE NOTED ON CHEST TUBE INCISION. PER THE ICU NURSE ABUNDIO IS AWARE. CHEST TUBE INTACT TO WATER SEAL. LEAKAGE NOTED. MD AWARE. AT THE BEDSIDE. WILL CONTINUE TO MONITOR.
--- NOTE | 2019-05-29 21:18 | HC ---
[facility] [place] [address] CONSULTATION Name: MILLA PERALTA Room #: 208-P ADM IN M.R.#: [id number] Admission: 05/26/19 Attend Phys: Francisco Raymond MD Discharge: Date of : 53 Report #: [id number] THIS REPORT FOR: //name// CC: [facility] physician/PCP Tato Jasso MD PHYSICIAN OR CLINICIAN REQUESTING CONSULT: Dr. Cristian Lerma. 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 HISTORY OF PRESENT ILLNESS: The patient is a 64-year-old gentleman, who underwent surgery on 05/08/2019. Previous to that, he had been found to have coronary artery disease and had undergone a CABG surgery on 04/03/2019. As part of evaluation, they found the left lower lung cancer. This was resected as mentioned on 05/08/2019. The pathology was consistent with a left lower lobe lobectomy with an adenosquamous carcinoma that was grade 2 and focal poorly differentiated, measuring 3.7 cm with clear margins. No lymphovascular involvement and 8 lymph nodes were negative. Also, note that the PD-L1 was 90%, which is overexpressed and he was negative for EGFR/BRAF/ALK/ROS1 mutations. I discussed the above path report with the patient and his . His risk of systemic recurrence was probably somewhere between 20% and 40%. There was probably minimal benefit from chemotherapy, may be in the range of 3% or 4%. Fortunately, he is not poorly differentiated, he does not have lymphovascular invasion. These would all be higher risk factors. We also need to take a look at his PET scan to see what the SUV avidity is. Some would argue if the SUV is 10 or higher, he might wish to consider chemotherapy, but would probably again would be of marginal benefit. This is a T2aN0 or stage 1B lung cancer. The patient had been brought back to the hospital because of being very dyspneic. A chest x-ray done at [facility] had showed left apical pneumothorax. Also, had had a fever to 101 the day before. He has also been coughing some thick, brown-yellow sputum. He is on 2 liters of oxygen. He has not had any diarrhea. No constipation, no skin rash, no bleeding, and no dysuria. PAST MEDICAL HISTORY: Notable for a history of the stage 1B, T2a N0 M0, 3.7 cm grade 2 adenosquamous cell cancer that has PD-L1 expressing, but negative for other mutations. Also, history of coronary artery disease with bypass on 04/03/2019, history of hyperlipidemia, history of COPD, history of an [facility] [address] [place] [address] CONSULTATION Name: MILLA PERALTA Room #: 208-P [facility] IN .R.#: [id number] Admission: 05/26/19 Attend Phys: Francisco Raymond MD Discharge: Date of : 53 Report #: [id number] appendectomy, and history of mood disorder. Also, left inguinal hernia repair and also history of anxiety and maybe depression and GERD. SOCIAL HISTORY: The patient stopped smoking right before surgery for the heart in 03/2019. Has not drank alcohol for about 23 years. I do not think he drank heavy in the past, we did not give descriptions. No street drugs. He is retired and used to do [employer]. He is here with his , Jeanette. They live in [place], [place]. FAMILY HISTORY: Father had lung cancer and in his 60s. Mother had cervical cancer. Three brothers and 2 had heart trouble. Three sisters and no specific illnesses. Two children and no specific illnesses. MEDICATIONS: At this time currently include atorvastatin 40 mg at bedtime, metoprolol 25 b.i.d., bupropion 75 b.i.d., aspirin 81 daily, famotidine 20 b.i.d. IV, methylprednisolone 80 mg q.8h. IV, Zosyn 3.375 grams IV q.8h., ipratropium and albuterol inhalation therapy q. hour p.r.n., Benadryl 25 mg p.r.n., Xanax 0.25 q.6h. p.r.n., and Tylenol 650 q.6h. p.r.n. LABORATORY WORK: Has a recent BUN of 23 and creatinine of 0.8. Transaminases at last admit were normal. Cholesterol was 345 back in March with an LDL of 272. White count this admit 8.4, hemoglobin 10.9, MCV 81.4, and platelets 577. Note the last admit they had been between 316, 211, and 308. Differential has slight increase in percentage monocytes, eosinophils, and basophils and slight decrease in lymphocytes. UA was fairly unremarkable. CT scan or CTA, chest described this time is showing no findings of pulmonary embolus or aortic dissection. They did see pneumothorax with mixed loculated changes throughout the left lung apex, consolidation of the left lower lobe, suggesting left lower lobe pneumonia with mild hilar adenopathy, and scattered emphysematous changes. PHYSICAL EXAMINATION: VITAL SIGNS: Height is 5 feet and 8 inches or 172.7 cm and weight 131 pounds or 59.4 kilograms. Blood pressure is recently 105/64, O2 sat at 96%, respirations 28, pulse 86, and afebrile at 98.9. Did have a temperature of 99.3, axillary, last night. MOOD: The patient is alert, pleasant, and conversant. NEUROLOGIC: The patient's speech and thought pattern are normal. Moving the extremities. HEENT: Oropharynx, mostly clear. HEART: Regular rate. LUNGS: Does have some slight rhonchi in the left base and left anterior. ABDOMEN: Soft, without masses, and nontender. EXTREMITIES: Without clubbing, cyanosis, or edema. ASSESSMENT AND PLAN: 1. Stage 1B, grade 2, negative lymphovascular involvement, positive PD-L1, [address] [address] CONSULTATION Name: MILLA PERALTA Room #: 208-P [facility] IN .R.#: [id number] Admission: 05/26/19 Attend Phys: Francisco Raymond MD Discharge: Date of : 53 Report #: [id number] negative other mutation, cancer resected on 05/08/2019. This would be stage B. Risk of recurrence is probably somewhere between 20% and 40%, hopefully closer to 20%, as he has grade 2 and not grade 3. He does not have lymphovascular invasion and need to assess PET avidity on recent PET scan. If higher than 10, might slightly consider chemotherapy, but benefit is probably minimal in the 6-8% benefit range. At this point, I am leaning towards not doing chemotherapy, especially if the PET avidity is less than 10. We will also check to see if clinical trials are available. Did discuss observation/surveillance with CAT scans every 6 months for 2 years and then yearly after that. This could either be done in [place], where he could see the oncologist down at [facility] or he could be seen by his lung doctor, heart doctor, or primary care physician. 2. Recent febrile illness with cough and dyspnea with possible pneumonia and possible pneumohydrothorax. Await cardiothoracic surgery's evaluation and possible chest tube. For now, continue antibiotics. 3. Chronic obstructive pulmonary disease, inhalers. 4. Hypertension, metoprolol. 5. Coronary artery disease, aspirin and metoprolol. 6. Hyperlipidemia, statin. 7. Mood, will likely need to continue bupropion and Xanax. We will follow with you. <ELECTRONICALLY SIGNED> By: Dutch Mora MD 05/29/19 2118 0840 1101 Dutch Mora MD /nt
[2019-05-30 04:11] VITALS: BP 128/69
[2019-05-30 05:18] LABS: HEMATOCRIT 27.4 % (42.0-52.0); HEMOGLOBIN 8.7 gm/dL (14.0-18.0); MCH 25.9 pg (26.0-34.0); MCHC 31.7 g/dL (28.0-37.0); MCV 81.6 fL (80.0-100.0); RBC 3.35 mil/uL (4.50-6.00); RDW 14.9 % (10.5-14.5); WBC 15.2 thou/uL (4.0-11.0)
[2019-05-30 05:29] LABS: CALCIUM 7.9 mg/dL (8.5-10.1); CREATININE 0.7 mg/dL (0.7-1.3); POTASSIUM 4.3 mmol/L (3.5-5.1)
[2019-05-30 07:34] VITALS: BP 119/70
--- NOTE | 2019-05-30 11:03 | NUR ---
Nutrition: CM requested RD to visit due to current diet order and wanting items not allowed. Pt with recent dx of lung CA, LLL lobectomy, S/P bronchoscopy/thoracotomy. Chest tube in place. Diet order was heart healthy and Gabe FORREST approved liberalization to regular per pt request. Eating fairly well, 50-100% of meals with ensure daily. Current weight reflects approx. 10# decline in the past several months but is trending upward. Expect po will improve even further with regular diet. Pt/ able to order meals. Low risk with interventions in place.
[2019-05-30 11:45] VITALS: BP 120/64
--- NOTE | 2019-05-30 12:47 | NUR ---
Met with patient and and discussed possible need for HH at dc. Patient/ with no preference for HH just who service area and in network with insurance. Verified address. [facility].
--- NOTE | 2019-05-30 14:06 | NUR ---
FAXED REFERRAL TO [facility] SPOKE WITH JAZLYN IN INTAKE SHE RECEIVED REFERRAL AND WILL REVIEW. DP TO FOLLOW.
[2019-05-30 15:59] VITALS: BP 135/53
[2019-05-30 16:09] VITALS: BP 135/53
--- NOTE | 2019-05-30 17:42 | NUR ---
PT ALERT AND ORIENTED. VSS. CHEST TUBE INTACT. UP IN THE CHAIR THIS SHIFT. AMBULATED X1 THIS AM. NO CONCERNS AT THIS TIME. WILL CONTINUE TO MONITOR.
[2019-05-30 21:00] VITALS: BP 139/85
[2019-05-31 04:45] VITALS: BP 145/81
--- NOTE | 2019-05-31 06:49 | NUR ---
RESUMED PATIENT CARE AT 1900, PATIENT A&OX4, CHEST TUBE SITE INTACT AND DRAINING WELL, COMPLIANED OF PAIN AT THE RIBS, MEDICATED PRN WITH RELIEF, AT BEDSIDE,RESTED WELL THROUGH THE NIGHT, WILL CONTINUE TO MONITOR
[2019-05-31 07:53] VITALS: BP 136/82
--- NOTE | 2019-05-31 11:11 | HC ---
[facility] [place] [address] CONSULTATION Name: MILLA PERALTA Room #: 208-P ADM IN ..#: [id number] Admission: 05/26/19 Attend Phys: Francisco Raymond MD Discharge: Date of : 53 Report #: [id number] THIS REPORT FOR: //name// CC: [facility] physician/PCP Cristian Lerma DATE OF SERVICE: 05/27/2019 HISTORY OF PRESENT ILLNESS: We were asked to see the patient. The patient is well known to me from previous surgery. The patient had coronary artery bypass x 5 in March 2019 and in April had left thoracotomy with lower lobectomy for lung cancer. The patient had satisfactory hospital convalescence after the last surgery, but he reports increasing shortness of breath over the last few days at home and culminating with fever and sputum production. The patient was admitted last night and a chest x-ray revealed complex hydropneumothorax with pneumonia. The patient states that he feels better since admission on oxygen and antibiotics. PAST MEDICAL HISTORY: Significant for hypertension, hyperlipidemia, anxiety and depression. ALLERGIES: BEE STINGS. HOME MEDICINE: Aspirin, Spiriva, ProAir, Xanax, Lipitor, metoprolol, Benadryl for allergies and hydrocodone. PREVIOUS SURGERY: As mentioned, CABG x 5, 04/03/2019, left thoracotomy with lower lobectomy (not pneumonectomy) and a wedge resection of the upper lobe in 04/2019. SOCIAL HISTORY: The patient is . Former smoker. FAMILY HISTORY: Positive for CO and CVA in father, lung cancer in mother. REVIEW OF SYSTEMS: GENERAL: Negative other than the pertinent positives for the generalized weakness, recently, shortness of breath and sputum reduction and the respiratory segment. CARDIAC: The patient denies palpitations and chest pain. PHYSICAL EXAMINATION: GENERAL: The patient is lying in bed, seems reasonably comfortable. VITAL SIGNS: Temperature 37.2, pulse 90, respiratory rate 20, blood pressure [facility] [address] [place] [address] CONSULTATION Name: MILLA PERALTA Room #: 208-P [facility] IN [facility]#: [id number] Admission: 05/26/19 Attend Phys: Francisco Raymond MD Discharge: Date of : 53 Report #: [id number] 104/57. The patient in general is a thin, somewhat wizened appearing. HEENT: No scleral icterus, no arcus. Pupils are round, equal. NECK: No mass, no bruit. CHEST: Distant breath sounds bilaterally. HEART: Rhythm is regular with occasional VPC. No murmur audible. Median sternotomy incision appears to be well healed and sternum is stable. ABDOMEN: Soft, no mass, no tenderness. EXTREMITIES: No clubbing, cyanosis or edema. MUSCULOSKELETAL: No asymmetry or deformity. We do note __ first interosseous space is indicative nutritional status. NEUROLOGIC: No motor or sensory deficit. PSYCHIATRIC: Shows insight into problem and answers questions appropriately and is pleasant and grateful under the circumstances or despite the circumstances. There is no increased work of breathing seen at the moment. DIAGNOSTIC STUDIES: CT scan shows a complex picture on the left side of the apical and basal air spaces with various amounts of fluid. There were some adhesions between the residual lobe and chest wall and the lung is either consolidated or hypoaerated. I discussed this complex picture with the patient and his , several options including image-guided chest tubes at the least extreme or repeat thoracotomy with decortication at the most extreme, I favor a measured approach to perform a video-assisted thoracoscopy and as a guide for drainage and to see how aggressive we need to be surgically. I will keep the patient n.p.o. and try to perform this tomorrow. Risks and details of surgery were discussed. Options and alternatives were discussed as well. The patient understands all of this and agrees with this approach. Thank you for the consult. <ELECTRONICALLY SIGNED> By: Lavell Whelan MD 05/31/19 1111 0930 1858 Lavell Whelan MD /nt
[2019-05-31 13:12] VITALS: BP 135/78
[2019-05-31 16:55] VITALS: BP 139/82
--- NOTE | 2019-05-31 17:39 | NUR ---
PT ALERT AND ORIENTED. VSS. DENIED HAVING PAIN OR DISCOMFORT. UP IN THE CHAIR THIS SHIFT. PARTICIPATED IN PT AND OT. CHEST TUBES INTACT. NO RESPIRATORY OR CARDIAC DISTRESS NOTED. NPO AFTER MIDNIGHT FOR SURGICAL PROCEDURE IN AM. NO CONCERNS AT THIS TIME. WILL CONTINUE TO MONITOR.
[2019-05-31 20:34] VITALS: BP 151/78
--- NOTE | 2019-05-31 23:01 | HC ---
[facility] [place] [address] CONSULTATION Name: MILLA PERALTA Room #: 208-P ADM IN ..#: [id number] Admission: 05/26/19 Attend Phys: Francisco Raymond MD Discharge: Date of : 53 Report #: [id number] THIS REPORT FOR: //name// CC: JEREMY physician/PCP Francisco Raymond DATE OF SERVICE: 05/29/2019 INFECTIOUS DISEASE CONSULTATION REASON FOR CONSULTATION: I was asked to evaluate concerning left chest empyema. 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 Postoperatively, did reasonably well until last several days when he had progressive shortness of breath leading to further chest discomfort, fever, chills, sputum production. CT imaging showed a hydropneumothorax. Chest x-ray confirmed the same. Taken to surgery yesterday for drainage of the fluid collection and repair. Unclear if he found evidence of a bronchial stump leak. The final operative note is not yet out. Postoperatively, the patient has remained afebrile and hemodynamically stable. His pain is under reasonable control. Continues with left chest tubes. REVIEW OF SYSTEMS: No dysrhythmias noted. Mental status has remained normal. No GI or complaints. A 10-point review was negative other than what has been described above. PAST MEDICAL HISTORY: Anxiety, depression, hyperlipidemia and hypertension. ALLERGIES: BEE STINGS. MEDICATIONS: Prior to his admission, he was on aspirin, Spiriva, ProAir, Xanax, Lipitor, metoprolol, Benadryl, hydrocodone, now on vancomycin and Zosyn. PAST SURGICAL HISTORY: As noted above. FAMILY HISTORY: Noncontributory. SOCIAL HISTORY: , past smoker, no significant alcohol intake. REVIEW OF SYSTEMS: As noted above. PHYSICAL EXAMINATION: VITAL SIGNS: Afebrile and hemodynamically stable. GENERAL: He was sitting up in his chair. Mental status was normal. Mood was normal. [facility] [address] [place] [address] CONSULTATION Name: MILLA PERALTA Room #: 208-P [facility] IN ..#: [id number] Admission: 05/26/19 Attend Phys: Francisco Raymond MD Discharge: Date of : 53 Report #: [id number] SKIN: Without rash or decubitus. No palpable adenopathy. EYES: Without scleral icterus. MOUTH: Without mucositis. NECK: Supple. CHEST: Decreased breath sounds in the left posterior mid chest and below. Left chest incision was well approximated. Dressing was dry. Chest tubes in place. Holding sealed. HEART: Regular, without murmur, gallop or rub. ABDOMEN: Soft, nontender, no hepatosplenomegaly or mass. GENITOURINARY: External genitalia without mass or lesion with indwelling Dash catheter. EXTREMITIES: Without clubbing, cyanosis or edema. NEUROLOGIC: Cranial nerves intact. Strength in the upper and lower extremities was normal and symmetric. Sensation to touch, upper and lower extremities normal and symmetric. LABORATORY STUDIES: Reviewed. MICROBIOLOGY: Reviewed. IMAGING STUDIES: Reviewed. IMPRESSION: 1. A 64-year-old status post coronary bypass grafting and left thoracotomy with left lower lobe resection, now with left chest empyema. Unclear yet if there was a bronchial stump leak. He has newly diagnosed lung cancer. Coronary artery bypass grafting appears successful, with no evidence of ongoing angina or issues following anesthesia. 2. Hypertension. 3. Anxiety, depression, stable. RECOMMENDATIONS: Agree with healthcare-associated antibiotic coverage with vancomycin and Zosyn. We will await culture results. Adjust antibiotics accordingly. We will also discuss with Cardiovascular Surgery regarding intraoperative findings. <ELECTRONICALLY SIGNED> By: Nestor Lee MD 05/31/19 2301 [id number] Nestor Lee MD /nt
[2019-06-01] VITALS (9 sets, daily range): BP systolic 91–141; BP diastolic 45–77
--- NOTE | 2019-06-01 05:47 | NUR ---
ASSUME CARE 1900.PT/VIALS STABLE. MILD INCISIONAL PAIN INDICATED. TYLENOL FOR RELIEF. UP WITH WALKER STB ASSIST. ASSESSMENT CHARTED. PROGRESSING WELL WITH POC. WALKED PT 2 TIMES IN AROUN THE UNIT. CHEST TUBE IN PLACE WITH NO CREPITUS NOTED/ SEROUS DRAINAGE NOTED. SR ON MONITOR. 1LNC WITH 2 LNC FOR EXERTION AND ACTIVITY. PLAN IS NPO SINCE MIDIGHT FOR CT REMOVAL, FLUID DRAINAGE AND POSSIBLE ELEOSSER FLAP DONE. WILL CONTINUE TO MONITOR AND FOLLOW WITH POC
[2019-06-01 11:04] LABS: HEMATOCRIT 30.3 % (42.0-52.0); HEMOGLOBIN 9.6 gm/dL (14.0-18.0); MCH 25.6 pg (26.0-34.0); MCHC 31.7 g/dL (28.0-37.0); MCV 80.7 fL (80.0-100.0); RBC 3.76 mil/uL (4.50-6.00); RDW 15.2 % (10.5-14.5); WBC 21.8 thou/uL (4.0-11.0)
--- NOTE | 2019-06-01 13:57 | O ---
[facility] [place] [address] OPERATIVE REPORT Name: MILLA PERALTA Room #: 208-P [facility] IN ..#: [id number] Admission: 05/26/19 Attend Phys: Francisco Raymond MD Discharge: Date of : 53 Report #: [id number] THIS REPORT FOR: //name// CC: [facility] physician/PCP Francisco Raymond DATE OF SERVICE: 05/28/2019 PREOPERATIVE DIAGNOSIS: Hydropneumothorax. 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 SURGEON: Lavell Whelan MD SPECIAL EDUCATION PARAPROFESSIONAL: VARGHESE Shankar ANESTHESIA: General. INDICATIONS: The patient is a 64-year-old known to me from coronary bypass surgery in 03/2019 and left lower lobe lung resection in 04/2019. The patient had a slow but satisfactory hospital convalescence after each procedure, he had done well at home until ____ admitted to the Emergency Department on 05/26/2019 with cough and shortness of breath. Chest x-ray revealed multiple loculations of hydropneumothorax with decreased volume of the residual lobe on the left side. I felt that the findings mandated exploration with at least video-assisted thoracoscopy to diagnose and treat the patient. FINDINGS AND TECHNIQUE: After general anesthesia was established, flexible diagnostic bronchoscopy was performed. There appeared to be a slight discontinuity and the suture line on the bronchus to the left lobe at the most leftward margin of the visual field. This was small and possibly a millimeter in size. A double lumen tube was placed and the patient was positioned with left side up. Exposure was obtained with a video-assisted thoracoscopy port in the anterolateral chest. We entered a loculated airspace that was lined with fibrinous debris and at the base, there was seropurulent collection. This was aspirated and samples were sent for culture. I could not see the source of this material, but suspect that this was related to a bronchopleural fistula. As such, I hope to get better exposure for drainage and possible repair. I made a posterolateral thoracotomy through the skin incision of the previous operation and tried entered through the fifth interspace where we had previously explored the patient. The lung was adherent to this area, however, and I made a second entry into the chest, two interspaces below these entered loculations and at the base, I could see the hilum covered by fibrinous debris. [address] [address] OPERATIVE REPORT Name: MILLA PERALTA Room #: 208-P [facility] IN [facility]#: [id number] Admission: 05/26/19 Attend Phys: Francisco Raymond MD Discharge: Date of : 53 Report #: [id number] The dependence spaces were drained. The lung was adherent with an inflammatory reaction and I felt that taking everything down at this end-stage would be meddlesome. As such, I performed a thorough irrigation of the dependent cavities and then placed two large chest tubes for drainage in the hopes that we could control the bronchopleural fistula and returned a different day if more surgery was needed. Both of the intercostal incisions were closed with heavy PDS and then the fascial layers were closed with running Vicryl and the skin was closed with Monocryl. The chest tubes were secured in position and the patient was taken to the recovery room where the lung now appeared to be reexpanded and looked gratifyingly improved. The patient did, however, have an air leak. The patient tolerated the procedure well. All counts reported as correct. <ELECTRONICALLY SIGNED> By: Lavell Whelan MD 06/01/19 1357 [id number] Lavell Whelan MD /nt
--- NOTE | 2019-06-01 14:04 | NUR ---
Pt having surgical procedure today for chest tube removal and flap. Dc timeframe is uncertain. [facility] can accept at dc and orders(dc summary/instructions) will need to be faxed to [phone] and their oncall nurse notified at dc [phone]. Pt up with sba. Plan is dc home with his and hh when cleared by CTS. Will follow.
--- NOTE | 2019-06-01 18:27 | NUR ---
PT ARRIVED FROM PACU AT 1540. PLACED ON MONITOR. PT DROWSY BUT ORIENTED. NO C/O PAIN. TYSON DIET. WOUND VAC ON AND WORKING. IN GUEST ROOM.
[2019-06-02] VITALS (19 sets, daily range): BP systolic 99–135; BP diastolic 50–76
[2019-06-02 05:36] LABS: HEMATOCRIT 27.6 % (42.0-52.0); HEMOGLOBIN 8.9 gm/dL (14.0-18.0); MCH 26.2 pg (26.0-34.0); MCHC 32.2 g/dL (28.0-37.0); MCV 81.2 fL (80.0-100.0); RBC 3.4 mil/uL (4.50-6.00); RDW 14.9 % (10.5-14.5); WBC 22.4 thou/uL (4.0-11.0)
[2019-06-02 05:45] LABS: CALCIUM 7.6 mg/dL (8.5-10.1); CREATININE 0.7 mg/dL (0.7-1.3); POTASSIUM 4.2 mmol/L (3.5-5.1)
[2019-06-02 10:56] LABS: PHOSPHORUS 3.5 mg/dL (2.5-4.9)
--- NOTE | 2019-06-02 19:21 | NUR ---
PATIENT ALERT AND ORIENTED X4, PAIN MILDLY CONTROLLED WITH MEDICATION. ON 2L NASAL CANNULA FOR COMFORT, SHORTNESS OF BREATH WITH INCREASED ACTIVITY. PATIENT UP IN CHAIR THROUGHT SHIFT, AMBULATED UNIT X2 WITH STANDBY ASSISTANCE. WOUND VAC INTACT. IV CARDENE DISCONTINUED, SYSTOLIC BLOOD PRESSURE REMAINED BELOW 160. JEFFERSON AND ART LINE REMOVED, PATIENT VOIDING ADEQUATELY. PLAN OF CARE DISCUSSED WITH PATIENT AND , NO SIGNS OF ACUTE DISTRESS NOTED AT THIS TIME. WILL CONTINUE TO MONITOR.
[2019-06-03] VITALS (23 sets, daily range): BP systolic 93–141; BP diastolic 64–80
[2019-06-03 05:59] LABS: HEMATOCRIT 28.9 % (42.0-52.0); HEMOGLOBIN 9.2 gm/dL (14.0-18.0); MCH 26.3 pg (26.0-34.0); MCHC 31.9 g/dL (28.0-37.0); MCV 82.5 fL (80.0-100.0); PLATELET COUNT 379 thou/uL (150-400); RBC 3.51 mil/uL (4.50-6.00); RDW 15.2 % (10.5-14.5); WBC 26.5 thou/uL (4.0-11.0)
[2019-06-03 06:11] LABS: ALBUMIN 1.5 g/dL (3.4-5.0); CREATININE 0.6 mg/dL (0.7-1.3); POTASSIUM 4.4 mmol/L (3.5-5.1); TOTAL BILIRUBIN 0.3 mg/dL (<0.1-1.0); TOTAL PROTEIN 4.7 g/dL (6.4-8.2)
--- NOTE | 2019-06-03 07:35 | O ---
[facility] [place] [address] OPERATIVE REPORT Name: MILLA PERALTA Room #: 237-P ADM IN M.R.#: [id number] Admission: 05/26/19 Attend Phys: Francisco Raymond MD Discharge: Date of : 53 Report #: [id number] THIS REPORT FOR: //name// CC: JEREMY physician/PCP Francisco Raymond DATE OF SERVICE: 06/01/2019 PREOPERATIVE DIAGNOSIS: Bronchopleural fistula, status post left lower pulmonary lobectomy. POSTOPERATIVE DIAGNOSIS: Bronchopleural fistula, status post left lower pulmonary lobectomy. OPERATION: Bronchoscopy with modified Eloesser flap drainage with wound VAC placement. ANESTHESIA: General. INDICATIONS: The patient is status post left lower lobectomy approximately one month ago. Unfortunately, the patient has developed what appears to be a bronchopleural fistula based on the bronchoscopic findings and exploration of the chest. When we last explored the chest, there was seropurulent debris and I thought that it would be hazardous to dissect at the hilum. Therefore, drainage was performed at the time and with the idea that we would be returning for more treatment. FINDINGS AND TECHNIQUE: After general anesthesia was established, flexible diagnostic bronchoscopy was performed. There were more thick inspissated secretions this time than the last and the bronchopleural fistula appeared to be similar in size approximately 1 mm or so. A double lumen tube was placed and the patient was positioned with left side up. Exposure was obtained via the chest tube sites from the last drainage. These were dependent sites and the incisions were extended and subperiosteal rib resection was done to allow better drainage. The video-assisted thoracoscope was used. There were two distinct cavities. One was anterior and did not seem to communicate with any of the fistulous tracts. The more posterior tract appeared to point towards the hilum. In both areas, fine mesh gauze was used to protect the vital structures deep within the wound and then a more coarse sponge was placed for wound VAC drainage. This coarse sponge was built up into the skin incision and then the wound VAC was applied in such a way to connect these two distinct sites. The wound VAC was calibrated to irrigate these spaces and then drain even though [facility] [address] [place] [address] OPERATIVE REPORT Name: MILLA PERALTA Room #: 237-P [facility] IN .R.#: [id number] Admission: 05/26/19 Attend Phys: Francisco Raymond MD Discharge: Date of : 53 Report #: [id number] there was a small air leak. We appeared to have good seal (this was on positive pressure ventilation). The hope is that we can get these spaces more clean with possible wound closure (Clagett procedure) if we can get the bronchopleural fistula to heal. In the absence of active infection with adequate blood supply and nutrition, these wounds may heal. Patient tolerated the procedure well and was taken to the recovery area in good condition. All counts reported as correct. <ELECTRONICALLY SIGNED> By: Lavell Whelan MD 06/03/19 0735 1525 [id number] Lavell Whelan MD /nt
[2019-06-03 08:27] LABS: ABSOLUTE NEUTROPHILS 22.8 thou/uL (1.4-8.2); ANISOCYTOSIS 1+; METAMYELOCYTES 2 %; MYELOCYTES 2 %; OVALOCYTES 1+
--- NOTE | 2019-06-03 19:52 | NUR ---
ASSUMED CARE AT 0700. PT ON 2L AT SHIFT CHANGE. PT O2 SATS UPPER 90'S. PT DOES CURRENTLY HAVE WOUND VAC TO LEFT UPPER SIDE/BACK. PT STATES NEED FOR O2 EVEN WITH HIGHER O2 SAT. PT GETS VERY ANXIOUS WITHOUT O2 AT 2L. PT WALKED FROM ICU TO CAT SCAN TODAY AND 3 LAPS AROUND ICU UNIT. O2 SAT REMAINED UPPER 90'S WITH ACTIVITY.
[2019-06-04] VITALS (7 sets, daily range): BP systolic 129–140; BP diastolic 69–79
--- NOTE | 2019-06-04 05:39 | NUR ---
SEE in3Depth FOR ASSESSMENT. PT SLEEPING ON AND OFF DURING NOC. NO SOA. 02 1L WOUND VAC TO LT LATERAL CHEST. NPO SINCE 0500. CONT PLAN OF CARE
--- NOTE | 2019-06-04 07:26 | NUR ---
REMAINED NPO. DR. COLLAZO AND PRESENT AT BEDSIDE. SURGICAL TEAM PRESENT TO ESCORT PT TO PREOP HOLDING, TRANSFERRED ON ICU BED WITH O2 AND ALMOND BLANCHER HAND. WOUND VAC REMAINS INTACT, FUNCTIONING.
--- NOTE | 2019-06-04 15:44 | NUR ---
VASCULAR ACCESS TEAM PATIENT CONSENTED TO HAVE MIDLINE CATHETER PLACED. R BASILIC VEIN WIDELY PATENT WITH ULTRASOUND. PATIENT PREPPED AND DRAPED UNDER STERILE CONDITIONS. 3ML 1% LIDOCAINE GIVEN SUB Q INJECTION. VEIN CANNULATED WITH ONE ATTEMPT. GUIDEWIRE ADVANCED EASILY. VEIN DILATED. GUIDEWIRE REMOVED INTACT. 4FR SL MIDLINE TRIMMED TO 15CM. LINE INSERTED TO 15CM INTERNAL AND OCM EXTERNAL. LINE FLUSHES AND DRAWS EASILY. PATIENT TOLERATED PROCEDURE WELL. MIDLINE RELEASED FOR IMMEDIATE USE TO RN.
--- NOTE | 2019-06-04 19:58 | NUR ---
PT BACK FROM OR AT 1250. PLACED ON MONITOR. ART LINE HOOKED UP. C/O PAIN, PRN MEDS ORDERED PER DR COLLAZO. TYSON DIET, POOR APPETITE.
--- NOTE | 2019-06-05 08:01 | NUR ---
PT ALERT AND ORIENTED. PT'S PAIN WAS MANAGED WITH PRN FENTANYL AND HYDROCODONE. PT HAD A RESTFUL NIGHT. COUGH AND DEEP BREATHING EXERCISES INTERMITTENTLY DONE WHEN PT AWAKE AT NIGHT. CARDENE OFF SINCE 4 AM THIS MORNING. PT SLOWLY PROGRESSING TOWARDS GOALS.CHART CHECK. REPORT GIVEN TO ANTONIO RIVREA.
[2019-06-05 08:05] LABS: HEMATOCRIT 31.1 % (42.0-52.0); HEMOGLOBIN 10.1 gm/dL (14.0-18.0); MCH 26.2 pg (26.0-34.0); MCHC 32.3 g/dL (28.0-37.0); MCV 81.2 fL (80.0-100.0); RBC 3.83 mil/uL (4.50-6.00); RDW 15.7 % (10.5-14.5); WBC 29.5 thou/uL (4.0-11.0)
[2019-06-05 08:19] LABS: ALBUMIN 1.6 g/dL (3.4-5.0); CALCIUM 7.8 mg/dL (8.5-10.1); CREATININE 0.6 mg/dL (0.7-1.3)
[2019-06-05 16:36] VITALS: BP 110/58
[2019-06-05 18:00] VITALS: BP 111/55
--- NOTE | 2019-06-05 20:20 | NUR ---
PATIENT PROGRESSING TOWARDS OUTCOME GOALS EVIDENT BY, MONITOR NSR WITH STABLE VS SYSTOLIC BP IS LESS THAN 155 MMGH. U/O GREATER THAN 40 ML/HR. TAKING PO DIET WITHOUT NAUSEA OR EMESIS. UP IN THE CHAIR FOR SEVERAL HOURS AND ABLE TO RETUN TO BED WITH MINIMAL ASSISTANCE. PATIENT AND UPDATED TO POC AND REASSURANCE GIVEN, QUESTIONS ANSWERED. PAIN CONTOLLED WITH PAIN MANAGEMENT REGIME PAIN LEVEL WAS 1-5/10.
[2019-06-06 05:13] LABS: HEMATOCRIT 30.6 % (42.0-52.0); HEMOGLOBIN 9.8 gm/dL (14.0-18.0); MCH 26.4 pg (26.0-34.0); MCHC 32.1 g/dL (28.0-37.0); MCV 82.4 fL (80.0-100.0); RBC 3.72 mil/uL (4.50-6.00); RDW 15.7 % (10.5-14.5); WBC 28.5 thou/uL (4.0-11.0)
[2019-06-06 05:15] LABS: CALCIUM 7.8 mg/dL (8.5-10.1); CREATININE 0.7 mg/dL (0.7-1.3); POTASSIUM 4.1 mmol/L (3.5-5.1)
--- NOTE | 2019-06-06 07:00 | NUR ---
PT ALERT AND ORIENTED. PAIN UNDER CONTROL. NPO SINCE MIDNIGHT. PT HAD A RESTFUL NIGHT. PT PROGRESSING TOWARDS GOAL. CHART CHECK. REPORT GIVEN TO ANTONIO RIVERA.
[2019-06-06 08:59] VITALS: BP 122/69
--- NOTE | 2019-06-06 09:46 | NUR ---
Nutrition followup on pt with recent dx lung CA, S/P LLL lobectomy, PNX. S/P thoracotomy x 2 with muscle flap and closure of fistula. Wound vac in place. Pt to return to surgery today. RD also consulted for malnutrition, physician diagnosed, will defer. Prior diet was liberalized to regular. Pt eats fairly well, >75% most meals. Understands high protein needs/sources for healing. Drinks 100% Ensure daily, will increase to BID. Recent UBW reported as 145#. Current 150#. Admit weight 131#. Trending upwards favorably however pt with 1+ bilateral ankle edema. brings in food as requested by pt which is ok as not on restricted diet. Also able to order meals. Consider low nutrition risk.
--- NOTE | 2019-06-06 11:00 | NUR ---
PATIENT TO PRE OP PER BED WITH O2 AND PEDRO AT 1050 FOR CHANGING OF WOUND VAC AND WASHING WITH POSSIBLE REMOVAL OF WOUND VAC. ACCOMPANIED BY . AMPICILLIN SENT WITH PATIENT.
[2019-06-06 15:00] VITALS: BP 171/81
--- NOTE | 2019-06-06 15:54 | NUR ---
PATIENT RETURNED TO ROOM FROM PACU VIA BED AT 1410, ATTACHED TO MONITOR AND PEDRO CALIBRATED, SL DAMPPENED WAVEFORM. DENIES PAIN AT THIS TIME, WOUND VAC INTACT TO SUCTION WITH SEROUS SANG DRAINAGE. PATIENT IS DROWSEY BUT ORIENTATED
[2019-06-06 16:01] VITALS: BP 152/75
[2019-06-06 18:24] VITALS: BP 102/53
--- NOTE | 2019-06-06 18:43 | NUR ---
PATIENT PROGRESSING EVIDENT BY INCREASE IN ACTIVIETY LEVEL. TOLERATING DIET INCLUDING INCREASING POTEINS WITHOUT NAUSEA OR EMESIS. ASSISTED UP TO CHAIR WITH MINIMAL ASSISTANCE. STATES THAT HIS PAIN IS UNDER CONTROL. PATIENT AND UPDATED TO THE POC AND FUTURE PLAN.
--- NOTE | 2019-06-06 23:00 | NUR ---
Up in chair all afternoon. Pt ready to go back to bed but requesting to walk around ICU first. Pt ambulating in room w/ RN assist and gait belt. Tolerated well. Pt assisted in halls to ambulate x 1 standby assist. Pt able to make 3 laps around all 3 PODS. Tolerated well. SaO2 100% on room air. Pt dangling at bedside, wants to sit up for 20-30 min.
--- NOTE | 2019-06-06 23:30 | NUR ---
Pt assisted to bed. HS care and linens changed. Pt requesting xanax for sleep. Pain controlled 08/27.
[2019-06-07] VITALS: BP 115/65
[2019-06-07 00:02] VITALS: BP 118/65
--- NOTE | 2019-06-07 14:41 | NUR ---
FOLLOWING FOR DC PLANNING. PT HAD FLAP PROCEDURE 06/01/19 AND HAS GONE BACK TO OR FOR VAT, WASHOUT AND WOUND VAC PLACEMENT TUESDAY AND TUESDAY AND PLANS AGAIN 06/08/19. SPOUSE IS SUPPORTIVE AND HERE DAILY WITH PT. SPIRITUAL CARE PROVIDIGN ONGOING SUPPORT WELL. MOBILITY GOOD AND DC PLAN CONTINUE TO BE HOME +/- HOME HEALTH WHEN MEDICALLY STABLE.
--- NOTE | 2019-06-07 19:43 | NUR ---
PATIENT PROGRESSING EVIDENT BY INCREASE IN ACTIVITY, UP IN THE CHAIR AND AMBULATED IN THE HALLWAYS FOR 10 MINS TODAY MAKING 3 LAPS AROUND THE PODS TODAY. MEDICATED FOR PAIN WITH RELIEF ABLE TO AMBULATE AND REST. TAKING A HIGH PROTEIN DIET WITHOUT NAUSEA OR EMESIS. MONITOR NSR. PATIENT AND FAMILY UPDATED TO THE POC AND QUESTIONS ADDRESSED REASSURANCE GIVEN.
[2019-06-07 20:00] VITALS: BP 112/58
[2019-06-07 21:00] VITALS: BP 109/54
[2019-06-07 22:00] VITALS: BP 117/54
[2019-06-07 23:00] VITALS: BP 112/64
[2019-06-08] VITALS (15 sets, daily range): BP systolic 101–130; BP diastolic 43–70
--- NOTE | 2019-06-08 05:54 | NUR ---
Pt has rested through the night, he rouses easily, SUAREZ's and repositions himself in bed. Pt will be NPO after 1000 hrs, for removal/replacement of wound vac, and repair of bronchial/pleural fistula, consent is unsigned, in the chart. Monitor reads SR, VSS, left radial artline is patent, trace edema to singh ankles. O2 at 2 L/m, he sometimes removes N/C, with no significant decrease in saturation, left lung field is diminished, with fair air movement to upper lobes, The wound vac to the left side is intact, draining sero sang drainage. Pt is eager to get better and return home.
--- NOTE | 2019-06-08 14:51 | NUR ---
ASSUMED CARE OF PT AT 0645. PLAN FOR SURGERY TODAY, WASH OUT AND CHANGE WOUND VAC. TYSON CLEAR DIET, STARTED ON PROTIEN DRINK. NPO AT 1000. TO PRE OP AT NOON.
--- NOTE | 2019-06-08 15:22 | NUR ---
PT WENT TO OR THIS DAY FOR ANOTHER CLEANOUT AND FOR WOUND VAC TO BE READMINISTERED. CM TO FOLLOW INIDCATED WITH DC PLANNING.
--- NOTE | 2019-06-08 18:55 | NUR ---
REPORT RECEIVED FROM SHARONA IN PACU. PATIENT WAS BROUGHT BACK TO ICU WITHOUT THE FENTANYL CORPORATE TRAINER PUMP STARTED. PATIENT STATING HE DOESNT WANT FENTANYL AND THAT "IT JUST DOESNT MAKE ME FEEL RIGHT". PATIENT WAS EDUCATED ON THE CORPORATE TRAINER. PATIENT RATING PAIN 6/10 ON THE LEFT RIBS, REQUESTING JUST TO USE HYDROCODONE FOR PAIN.
[2019-06-09] VITALS (25 sets, daily range): BP systolic 90–127; BP diastolic 48–80
--- NOTE | 2019-06-09 19:00 | NUR ---
Pt out of bed in recliner chair entire shift except for ambulating with PT around the nursing unit. Great motivation to increase his activity and progress toward goals. Sinus rhythm. Wound Vac intact-see intervention. Oral pain medication for incisional pain control. Family at bedside most of the day. Arterial line and olmos catheter removed per orders. Report given to RN assuming care.
[2019-06-10] VITALS (25 sets, daily range): BP systolic 90–129; BP diastolic 53–76
[2019-06-10 05:00] LABS: CALCIUM 7.8 mg/dL (8.5-10.1); CREATININE 0.5 mg/dL (0.7-1.3); POTASSIUM 3.7 mmol/L (3.5-5.1)
--- NOTE | 2019-06-10 05:42 | NUR ---
PT ALERT AND ORIENTED. PAIN CONTROLLED THROUGHOUT THE NIGHT. PT WALKED AROUND THE UNIT TWICE. PT HAS MORE POSITIVE OUTLOOK AND HAPPY WITH THE RECOVERY. PT PROGRESSING TOWARDS GOALS. CONTINUE TO MONITOR.
--- NOTE | 2019-06-10 12:55 | NUR ---
7309-This nurse took over patient care from the other RN. Pt is sitting on recliner, very pleasant. Decreased LS on LLL. Edema +1 present on ankles. Bruises on LFA. Wound vac in place w/ flush bag. Dressing on the bag is intact. Will continue to monitor
--- NOTE | 2019-06-10 17:20 | O ---
[facility] [place] [address] OPERATIVE REPORT Name: MILLA PERALTA Room #: 237-P ADM IN M.R.#: [id number] Admission: 05/26/19 Attend Phys: Francisco Raymond MD Discharge: Date of : 53 Report #: [id number] THIS REPORT FOR: //name// CC: [facility] physician/PCP Francisco Raymond DATE OF SERVICE: 06/08/2019 PREOPERATIVE DIAGNOSIS: Bronchopleural fistula. POSTOPERATIVE DIAGNOSIS: Bronchopleural fistula. OPERATION: Bronchoscopy, left video-assisted thoracoscopy, left thoracotomy with primary repair of bronchopleural fistula and intercostal muscle coverage with placement of wound VAC. FINDINGS AND TECHNIQUE: After general anesthesia was established, flexible diagnostic bronchoscopy was performed. There was persistent bronchial opening present at one end of the bronchial closure. A double lumen endotracheal tube was placed and the patient was positioned with left side up. Initially, the wound VAC was removed that had been placed two days earlier and then through the open chest tube sites, the video-assisted thoracoscopy was performed. There was persistent leak. At this time, the leak appeared to be coming from the lung itself and not the BP fistula. Unfortunately with persistent pleural spaces involved, I felt that we needed to open to secure the leak as much as possible. The previous thoracotomy incision was opened and then the intercostal sutures were cut to open the thoracotomy that we had made on the . The cavities were irrigated. There was some serofibrinous debris lining these cavities that was sent for culture. The wounds were also irrigated with antibiotic solution and in fact the Pulsavac was used for low-pressure cleansing of the spaces. I dissected out the adhesions between the residual upper lobe and the diaphragm, so I could better define the areas of leak. Some Tisseel was applied to the open lung where we had, I would term, as an alveolar fistula. Once this was closed then it was clear, there was another area of leak at our previous bronchopleural fistula site that had been not seen, the air had clearly taken the path of least resistance, which was the alveolus and not the bronchus. Unfortunately, with this met we needed to address the primary fistula. The Prolene sutures placed to arrange the intercostal muscle flap were all taken down to free up the flap and then I dissected out the bronchopleural fistula directly. There was a relatively small opening and I placed two 4-0 Vicryl sutures to close this primarily. The sutures seem to close the fistula nicely [facility] [address] [place] [address] OPERATIVE REPORT Name: MILLA PERALTA Room #: 237-P [facility] IN .R.#: [id number] Admission: 05/26/19 Attend Phys: Francisco Raymond MD Discharge: Date of : 53 Report #: [id number] and we had no air leak after that. The sutures were left long and they were sewn through the intercostal muscle flap so that this could be lying directly on the bronchial closure. The more distal end of the flap was also arranged to cover the lung tissue itself. At this point, we had no active leak and after inspecting the chest, we decided to place the irrigating wound VAC. Some fine mesh Scarbro-Seal gauze was placed over the vital structures and intercostal flap and then the coarse mesh was placed in the pleural spaces and brought out through the chest tube sites, and after this was done, intercostal sutures were placed to close the thoracotomy incision. The less well-defined muscles and fascial layers now after several openings were all closed has precisely as possible with interrupted Vicryl sutures for the muscle layers and fascia and then nylon and skin clips were used. After this was done, the wound VAC was finalized externally. After this was done, the patient was taken to the recovery area in good condition having tolerated the procedure well. All counts reported as correct. <ELECTRONICALLY SIGNED> By: Lavell Whelan MD 06/10/19 1720 1157 1220 Lavell Whelan MD /nt
--- NOTE | 2019-06-10 17:20 | O ---
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 OPERATION: Bronchoscopy, left video-assisted thoracoscopy, left thoracotomy with harvest of intercostal muscle flap and closure of bronchopleural fistula and removal and placement of wound VAC. SURGEON: Lavell Whelan MD CASH SPECIALIST: VARGHESE Shankar. ANESTHESIA: General. INDICATIONS: The patient is a 64-year-old with bronchopleural fistula, status post left lower lobectomy approximately one month ago. The patient presented with a complex hydropneumothorax, improved this with wound VAC placement. Today, the patient was returned to the operating room for change of wound VAC and assessment of bronchopleural fistula. FINDINGS AND TECHNIQUE: After general anesthesia was established, flexible diagnostic bronchoscopy was performed. Once again, the small fistula was noted in the left lower lobe bronchus orifice. Double lumen endotracheal tube was placed and the patient was positioned with left side up. Initially, the wound VAC sponges were removed along with the Dermaseal fine mesh gauze at the base of the wounds. All of the packing material was removed. Through the open incisions, the chest was inspected. The anterior space appeared to be clean with some fibrinous debris. Culture was taken of this area. The more posterior area was inspected with the 30-degree scope. We were able to see the bronchopleural fistula at this time for the first time as the pleural space had been cleansed with the wound VAC and irrigation. With this finding, the thought was generated that we could potentially close the [facility] [address] [place] [address] OPERATIVE REPORT Name: MILLA PERALTA Room #: 237-P [facility] IN ..#: [id number] Admission: 05/26/19 Attend Phys: Francisco Raymond MD Discharge: Date of : 53 Report #: [id number] bronchopleural fistula. As such, the old posterolateral thoracotomy incision was made in the lower inner space (previously opened) was reopened. This exposed the area nicely. An intercostal flap was harvested from the rib above the incision and the Doppler was used to ascertain good blood flow. The intercostal flap was detached anteriorly and the vessels were closed under direct vision in the flap itself. The bronchopleural fistula was debrided and then Tisseel was used to close the fistula because I thought that the tissue would not hold stitches well. Once the adhesive was placed then the intercostal flap was tacked to the fistula to allow vascularized healing. When we were satisfied with the placement of the bronchial stump, sutures were placed for pericostal wound closure. Prior to finishing the closure, the both cavities were aligned with the fine mesh gauze and then wound VAC sponges were placed. The sponges were made semi-continuous so that they could be removed through the chest tube incisions at a later date. The chest incision was closed with Vicryl for the fascial layers and Monocryl for the skin and then the wound VAC was placed to control the two open areas which were 6 long x 3 wide x 2 cm deep. All counts reported as correct. The patient tolerated the procedure well and was taken to the recovery area in good condition. Blood loss was minimal, 25 mL or less. <ELECTRONICALLY SIGNED> By: Lavell Whelan MD 06/10/19 1720 1158 1247 Lavell Whelan MD /nt
--- NOTE | 2019-06-10 17:20 | O ---
[facility] [place] [address] OPERATIVE REPORT Name: MILLA PERALTA Room #: 237-P ADM IN .R.#: [id number] Admission: 05/26/19 Attend Phys: Francisco Raymond MD Discharge: Date of : 53 Report #: [id number] THIS REPORT FOR: //name// CC: [facility] physician/PCP Francisco Raymond DATE OF SERVICE: 06/06/2019 PREOPERATIVE DIAGNOSIS: Bronchopleural fistula. POSTOPERATIVE DIAGNOSIS: Bronchopleural fistula. OPERATION: Bronchoscopy, left video-assisted thoracoscopy with replacement of wound VAC. ANESTHESIA: General. INDICATIONS: The patient is a 64-year-old with chronic bronchopleural fistula, status post lobectomy. Unfortunately, this is in the setting of poorly nourished patient with other medical issues. The patient was taken to the operating room, general anesthesia was established, flexible diagnostic bronchoscopy was performed. There still appeared to be an open area along the lateral aspect of the bronchial closure. This was relatively small however. A double lumen tube was placed and the patient was positioned with left side up. The previous wound VAC was removed through the two open chest tube sites. This included the mesh gauze with the Dermaseal. Through the chest tube site, the wound was inspected. The wound was relatively clean. The 2 pleural cavities (which communicated) on the left side were irrigated with antibiotic solution. The bronchopleural fistula area was inspected and there still appeared to be some small air leak. The wound VAC was replaced in the hopes that further healing would develop. The intercostal flap that had been sewn to this area was pink and viable and we were hoping would provide a good source for oxygenated healing. In any event, the wound VAC was replaced and this time a tampon was made to sew the Dermaseal to the end of the coarse mesh gauze and this was inserted into the chest to be close to the vital structures on covered gauze more peripherally and then the wound VAC dressing was secured to the outside. The incisions through which the procedure was done measured 6 x 3 cm (there were two of them, but inside the cavity was capacious). There was minimal blood loss. The patient tolerated the procedure well and was [facility] [address] [place] [address] OPERATIVE REPORT Name: MILLA PERALTA Room #: 237-P [facility] IN .R.#: [id number] Admission: 05/26/19 Attend Phys: Francisco Raymond MD Discharge: Date of : 53 Report #: [id number] returned to the recovery area in good condition. All counts reported as correct. <ELECTRONICALLY SIGNED> By: Lavell Whelan MD 06/10/19 1720 1151 1200 Lavell Whelan MD /nt
[2019-06-11] VITALS (20 sets, daily range): BP systolic 92–127; BP diastolic 51–72
--- NOTE | 2019-06-11 06:52 | NUR ---
PT ALERT AND ORIENTED. CLEAR LIQUID AFTER MIDNIGHT AND NPO SINCE 4AM. CONSENT SIGNED FOR THIS AM BRONCHOSCOPY, LEFT VIDEO ASSISTED THORACOSCOPY WITH WOUND VAC CHANGE. PT PROGRESSING TOWARDS GOALS. CHART CHECK. REPORT GIVEN TO ANTONIO OLIVAS.
--- NOTE | 2019-06-11 15:58 | NUR ---
Followup: RD reconsulted for malnutrition. Following pt throughout stay. Lung cancer s/p lobectomy, thoracotomy with muscle flap closure, wound vac. Pt eating well >75% of meals and 100% of 2 ensure enlive supplements per day which provide 350 wendy and 20g protein each. brings in food. Wts variable 140-150s. On MVI supplementation. Low albumin of 1.6 is related to inflammatory process and multiple comorbidities and will likely show no improvement despite pt eating well. Continue to follow as low nutrition risk with appropriate nutrition interventions in place.
--- NOTE | 2019-06-11 16:06 | NUR ---
CM NET WITH PT AND SPOUSE AT BEDSIDE THIS DAY. CM INDICATED THAT WE WERE AWAITING PT AND OT EVALS FOR RECOMMENDATIONS FOR MOBILITY NEEDS UPON DC. PT AND SPOUSE INDICATED PREFERENCE WOULD BE TO BE ABLE TO DC HOME WITH HH SERVICES. THEY INDICATED THAT IF POST ACUTE CARE STAY IS NEEDED THEY WOULD BE INTERESTED IN GOING TO [facility] SWING BED. CM TO FOLLOW INDICATED WITH DC PLANNING.
[2019-06-12] VITALS (11 sets, daily range): BP systolic 96–119; BP diastolic 50–65
--- NOTE | 2019-06-12 04:22 | NUR ---
AOX4. SR. 2L NC FOR COMFORT. VSS. AFEBRILE. MEDICATED FOR PAIN RELIEF. UP WITH MINIMAL ASSIST. PT WALKED AROUND THE UNIT TWICE DURING THE NIGHT. PT PROGRESSING TOWARDS GOALS. WILL CONTINUE TO MONITOR
--- NOTE | 2019-06-12 11:44 | NUR ---
PT WAS SEEN BY PT AND OT, THEY INDICATED THAT PT WILL LIKELY BE ABLE TO DC HOME WITH HH SERVICES ONCE MEDICALLY STABLE. PT AND SPOUSE DIDN'T INDICATED A PREERENCE FOR HH PROVIDER. CM ASKED DC CENTRAL OFFICE MECHANIC TO FAX REFERRAL TO [facility] FOR REVIEW FOR POSSIBLE ADMISSION. CARE TEAM INDICATED PT IS STABLE TO TRANSFER TO CCU AND THEY ANTICIPATE LEFT VAT WOUND VAC REMOVAL AND REPLACE 06/14. CM TO FOLLOW INDICATED WITH DC PLANNING.
[2019-06-12 12:00] LABS: HEMOGLOBIN 8.4 gm/dL (14.0-18.0); MCH 27.1 pg (26.0-34.0); MCHC 32.3 g/dL (28.0-37.0); MCV 83.9 fL (80.0-100.0); RBC 3.1 mil/uL (4.50-6.00); RDW 18.1 % (10.5-14.5); WBC 12.1 thou/uL (4.0-11.0)
[2019-06-12 12:02] LABS: ALBUMIN 1.5 g/dL (3.4-5.0); CALCIUM 8.1 mg/dL (8.5-10.1); CREATININE 0.6 mg/dL (0.7-1.3); POTASSIUM 3.9 mmol/L (3.5-5.1)
--- NOTE | 2019-06-12 19:32 | NUR ---
PT ARRIVED TO THE UNIT AT APPROX 1600 FROM ICU ACCOMPANIED BY ICU STAFF. PT ALERT AND ORIENTED, VSS. O2 SATS WNL ON ROOM AIR. DENIES CP/SOB, C/O PAIN--MANAGED WITH PO PAIN MEDS. WOUND VAC INTACT, 50 MM SUCTION WITH FLUIDS CONNECTED. DRESSING CDI, MAXIMILIANO DRESSING REMAINS DRY AND INTACT WITH DRIED DRAINAGE. PT DENIES NEEDS AT THIS TIME. PT CURRENTLY RESTING IN BED WITH AT BEDSIDE. CONTINUING TO MONITOR.
[2019-06-13 00:35] VITALS: BP 99/58
[2019-06-13 04:45] VITALS: BP 116/70
--- NOTE | 2019-06-13 05:20 | NUR ---
ASSUMED PT CARE AT 1900. VSS. PT A&0X4 PT STATED FEELING BETTER AND STRONGER. PAIN MANAGEMENT PER AUG. PT IS NOW ON ROOM AIR, STATTING IN THE 90s. THORACOTOMY DRESSING AND WOUND VAC INTACT, WOUND VAC IRRIGATION FLUID STILL IN PLACE. PT HAS 265ML OUT FROM THE WOUND VAC THIS SHIFT. PT HAD 1250 URINE OUTPUT THIS SHIFT WELL. PT IS STABLE ON THE MONITOR. NO FURTHER COMPLAINTS, RESTED WELL ALL NIGHT, WILL CONTINUE VISHAL MONITOR PER POC.
[2019-06-13 05:37] LABS: HEMATOCRIT 24.8 % (42.0-52.0); MCH 26.7 pg (26.0-34.0); MCHC 32.2 g/dL (28.0-37.0); RBC 2.99 mil/uL (4.50-6.00); WBC 12.2 thou/uL (4.0-11.0)
[2019-06-13 05:47] LABS: CALCIUM 7.5 mg/dL (8.5-10.1); CREATININE 0.5 mg/dL (0.7-1.3); POTASSIUM 4.1 mmol/L (3.5-5.1)
[2019-06-13 07:24] VITALS: BP 109/64
--- NOTE | 2019-06-13 10:34 | O ---
[facility] [place] [place] [address] OPERATIVE REPORT Name: MILLA PERALTA Room #: 204-P ADM IN M.R.#: [id number] Admission: 05/26/19 Attend Phys: Francisco Raymond MD Discharge: Date of : 53 Report #: [id number] THIS REPORT FOR: //name// CC: [facility] physician/PCP Francisco Raymond DATE OF SERVICE: 06/11/2019 PREOPERATIVE DIAGNOSIS: Bronchopleural fistula. POSTOPERATIVE DIAGNOSIS: Bronchopleural fistula. OPERATION: Bronchoscopy, left video-assisted thoracoscopy and replacement of wound VAC. SURGEON: Lavell Whelan MD ORACLE EBS DEVELOPER: VARGHESE Shankar ANESTHESIA: General. INDICATIONS: The patient is a 64-year-old with bronchopleural fistula, status post left lower lobectomy that has been difficult to manage. We had placed a muscle flap to cover the closed bronchopleural fistula from the left lower lobectomy and the patient was returned to the operating room on this occasion to change the wound VAC and to inspect the progress of healing. DESCRIPTION OF PROCEDURE: After general anesthesia was established, flexible diagnostic bronchoscopy was performed. The corner of the bronchial closure was nearly completely closed and it was certainly better than the previous time I had looked out it. There was no evidence of inflammation at this site. Double lumen endotracheal tube was placed and the patient was positioned with left side up. Exposure was obtained through our open chest tube sites and the wound VAC sponge was removed. The Adaptic covering the intercostal flap was removed and a flap appeared to be healing nicely under positive pressure, however, we still saw some air bubbling through the closure on the corners of the muscle flap. Several efforts have been already made to close this and felt that at this point, it would be best to focus on cleansing the spaces and to allow the patient to get some nutrition in the hopes that more healing would occur. As such, the pleural space was irrigated with antibiotic solution and then tampon was fashioned with Dermacea fine mesh gauze, covering the sponge and this portion was placed into the chest deeply followed by more sponge superficially [facility] [address] [place] [address] OPERATIVE REPORT Name: MILLA PERALTA Room #: 204-P [facility] IN ..#: [id number] Admission: 05/26/19 Attend Phys: Francisco Raymond MD Discharge: Date of : 53 Report #: [id number] to complete the wound VAC packing. The patient tolerated all this well and was returned to the recovery area in satisfactory condition. <ELECTRONICALLY SIGNED> By: Lavell Whelan MD 06/13/19 1034 1035 1048 Lavell Whelan MD /nt
[2019-06-13 11:18] VITALS: BP 102/61
--- NOTE | 2019-06-13 14:30 | NUR ---
ASSUMED CARE OF PATIENT AT 0700. ASSESSMENT COMPLETED. PATIENT'S IS AT THE BEDSIDE. PATIENT'S WOUND VAC AT THE END OF THE BED AND CANISTER CHANGED WITH SEROSANGUINEOUS DRAINAGE. PATIENT COMPLAINS OF PAIN AT 6-8/10 WHICH IS TREATED WITH HYDROCODONE. PATIENT TO CONTINUE WITH POC.
[2019-06-13 15:28] VITALS: BP 98/66
[2019-06-13 19:49] VITALS: BP 116/64
[2019-06-14 04:25] VITALS: BP 118/69
--- NOTE | 2019-06-14 05:13 | NUR ---
ASSUMED PT CARE AT 1900. VSS. PT A&0X4. WOUND VAC DRESSING REINFORCED WITH TAGEDERM, PTO BEEN NPO SINCE MIGNIGHT FOR PROCEDURE THIS AM. PT IS STABLE, PAIN MANAGED PER AUG. WILL CONTINUE TO MONITOR PER POC.
--- NOTE | 2019-06-14 07:54 | NUR ---
THIS PERINATAL INSTRUCTOR COMPLETED A PRE-SURGERY VISIT WITH THE PATIENT AND HIS .
[2019-06-14 08:08] LABS: HEMATOCRIT 24.9 % (42.0-52.0); HEMOGLOBIN 8.1 gm/dL (14.0-18.0); MCH 26.8 pg (26.0-34.0); MCHC 32.4 g/dL (28.0-37.0); MCV 82.7 fL (80.0-100.0); RBC 3.02 mil/uL (4.50-6.00); RDW 17.8 % (10.5-14.5); WBC 13.2 thou/uL (4.0-11.0)
--- NOTE | 2019-06-14 09:16 | NUR ---
REC REPORT ON PT WHO LEFT PRIOR TO START OF DAY SHIFT FOR SURGERY. WAR ROOM CALLED AND PLACED PT ON STAND BY.
[2019-06-14 10:25] VITALS: BP 111/70
--- NOTE | 2019-06-14 10:49 | NUR ---
ASSUMED CARE OF PT NOW AT 1045, PT DELIVERED FROM PROCEDURE. DENIES NEED FOR PAIN MEDICATION OTHER THAN HEMORRHOIDS, FAMILY ACCOMPANIED, RT TX, C/O OF A LITTLE NAUSEA, GOT SNACKS, MOVED FROM 204 TO 203. WAR ROOM CALLED. WILL CONTINUE TO MONITOR. SEE SEPARATE INTERVENTIONS FOR ASSESSMENTS
[2019-06-14 12:28] VITALS: BP 105/62
--- NOTE | 2019-06-14 18:44 | NUR ---
NURSING: PER MANAGEMENT OKAY TO ALLOW SPOUSE TO WALK PT WITH WOUND VAC CLAMPED OFF, WITH GAIT BELT. FAMILY ASKED THIS A.M. YET WHEN I WAS ABLE TO THIS LATE AFTERNOON HE DECLINED. WILL REPORT OFF SO OTHERS KNOW THIS IS PERMISSIBLE
[2019-06-14 20:59] VITALS: BP 121/59
[2019-06-15 00:31] VITALS: BP 104/58
--- NOTE | 2019-06-15 06:45 | NUR ---
PROGRESS PT A/O X 4. USING CALL LIGHT APPROPRIATELY. HAVING DIFFICULTY STOOLING SMALL SOFT UNFORMED PIECES OF STOOL COMING OUT BUT PT DOESN'T FEEL IF HIS BOWELS ARE EMPTYING. AMBULATED 3 LAPS AROUND UNIT TOOK A DOSE OF MIRALAX. HEMORRHOID CREAM USED X 2 LUIS EDUARDO AREA CLEANSED WITH WARM SOAPY WATER CLEANSING LOTION BARRIER CREAM AND PREPARATION H APPLIED WITH SOME EFFECT. MADE WARM COMPRESSES AND HAD PT HOLD NEAR HIS ANUS FOR COMFORT. CONTINUE TO MONITOR
[2019-06-15 08:00] VITALS: BP 125/79
[2019-06-15 13:00] VITALS: BP 120/65
--- NOTE | 2019-06-15 13:56 | NUR ---
[employer] Policy Analyst visited with the pt's this afternoon while the pt is getting an xray at bedside. Emotional support provided. expressed fatigue and frustration at lengthy hospital stay and feels the pt is getting depressed. She has been staying here with him as they live to far away for her to pop home for a few minutes. She likes to be here to talk with all the doctors. They are anticipating another procedure per CTS on Tuesday. Vac inplace for suction. Pt will need to have vac removed once air leak resolved. Will continue to follow for [facility] referral [place] [facility] [place].
[2019-06-15 15:50] VITALS: BP 112/59
--- NOTE | 2019-06-15 20:48 | NUR ---
ASSUMMED PT CARE AT APPROXIMATELY 0700. PT A&O X4. ASSESSMENT CHARTED. FALL PRECAUTIONS IN PLACE. PT DENIES HAVING CHEST PAIN. PT DENIES HAVING SOB. PT DENIES HAVING ACUTE PAIN. PT STATED HE HAD DISCOMFORT/DIFFUCULTLY TRYING TO HAVE A BM. ASSISTED PT IN AMBULATING IN HALLWAY. PT HAD A DIGITAL BM REMOVAL. PT RECEIVED ENEMA. PT HAD BM- SEE I&O. NOTIFIED VARGHESE DEL CASTILLO OF RESULTS FROM [facility]. ABUNDIO STATED UNDERSTANDING. PT AND PT'S FAMILY NOTIFIED OF POC/ PT AND PT'S FAMILY STATED UNDERSTANDNING AND DENIED HAVING FURHTER QUESTIONS. PT VITAL SIGNS STABLE. PT COMFORTABLE IN BED. PT DENIES HAVING FURTHER CONCERNS.
[2019-06-15 21:34] VITALS: BP 111/57
[2019-06-16 05:06] LABS: CALCIUM 7.9 mg/dL (8.5-10.1); CREATININE 0.7 mg/dL (0.7-1.3); POTASSIUM 3.3 mmol/L (3.5-5.1)
[2019-06-16 05:11] VITALS: BP 127/85
--- NOTE | 2019-06-16 08:29 | NUR ---
PT STATES HE HAD A VERY RESTFULL SLEEP, MIDLINE LEAKING IV TEAM NOTIFIED, VSS, PRN TYLENOL GIVEN AT HS FOR GENERAL ABDOMINAL PAIN, AMBULATED 4 LAPS IN STEPHEN WITH ASSIST, WOUNDS VAC CONTINUES DRAIN, WILL CON'T TO MONITOR PER PPOC.
[2019-06-16 12:00] VITALS: BP 131/73
[2019-06-16 15:35] VITALS: BP 126/65
--- NOTE | 2019-06-16 17:54 | NUR ---
ASSESSMENT CHARTED. PT ALERT AND ORIENTED. PLEASANT AND COOPERATIVE WITH CARES. VSS. DENIED HAVING PAIN OR DISCOMFORT. WOUNDVAC INTACT. HAD NUMEROUS BM THIS SHIFT. NO CARDIAC OR RESPIRATORY DISTRESS NOTED. WILL CONTINUE TO MONITOR.
[2019-06-16 19:28] VITALS: BP 125/59
--- NOTE | 2019-06-17 04:39 | NUR ---
ASSUMED PT CARE AT 1900. VSS. PT A&0X4. SR ON THE MONITOR. ADEQUATE URINARY OUTPUT OVERNIGHT; >500. DRESSING CHANGE TO THE LEFT LATERAL STAPLED INCISION LAST NOC BECAUSE PREVIOUS DRESSING WAS COMING OFF AND RUBBING AGAINST BEDDINGS. TYLENOL USED TO MANAGE PAIN THIS SHIFT. PT IS STABLE, NO COMPLAINTS OVERNIGHT. WILL CONTINUE TO MONITOR PER POC
[2019-06-17 05:20] VITALS: BP 133/68
[2019-06-17 08:20] VITALS: BP 134/73
[2019-06-17 09:42] LABS: HEMATOCRIT 25.9 % (42.0-52.0); HEMOGLOBIN 8.4 gm/dL (14.0-18.0); MCH 26.5 pg (26.0-34.0); MCHC 32.3 g/dL (28.0-37.0); RBC 3.16 mil/uL (4.50-6.00); RDW 18.1 % (10.5-14.5); WBC 9.5 thou/uL (4.0-11.0)
[2019-06-17 09:54] LABS: CALCIUM 8.5 mg/dL (8.5-10.1); CREATININE 0.6 mg/dL (0.7-1.3); MAGNESIUM 1.8 mg/dL (1.8-2.4); PHOSPHORUS 2.9 mg/dL (2.5-4.9); POTASSIUM 3.5 mmol/L (3.5-5.1)
[2019-06-17 12:14] VITALS: BP 97/69
[2019-06-17 15:50] VITALS: BP 127/57
--- NOTE | 2019-06-17 19:09 | NUR ---
ASSESSMENT CHARTED. PT ALERT AND ORIENTED. VSS. DENIED HAVING PAIN OR DISCOMFORT. UP IN THE CHAIR THIS SHIFT. WOUNDVAC INTACT. NO CONCERNS AT THIS TIME. WILL CONTINUE TO MONITOR.
[2019-06-17 20:15] VITALS: BP 148/65
[2019-06-18 04:29] LABS: CALCIUM 7.9 mg/dL (8.5-10.1); CREATININE 0.6 mg/dL (0.7-1.3); MAGNESIUM 1.8 mg/dL (1.8-2.4); POTASSIUM 3.5 mmol/L (3.5-5.1)
--- NOTE | 2019-06-18 04:46 | NUR ---
ASSUMED PT CARE AROUND 1900. A&OX4. C/O LEFT SIDED BACK PAIN. TYLENOL GIVEN FOR PAIN. PT DID NOT WANT ANY NARCOTICS FOR PAIN. AFEBRILE. VSS. PT AMBULATED AROUND UNIT WITH ASSISTANCE. TOLERATED WELL. PT SLEPT PART OF THE NIGHT. RESP EVEN AND UNLABORED. WOUND VAC INTACT TO LEFT BACK INCISION. FALL PRECAUTIONS IN PLACE, EXCEPT PT REFUSES BED ALARM. HE CALLS APPROPRIATELY. PROGRESSING SLOWLY TOWARD POC GOALS.
[2019-06-18 04:52] LABS: HEMATOCRIT 22.4 % (42.0-52.0); HEMOGLOBIN 7.3 gm/dL (14.0-18.0); MCH 26.5 pg (26.0-34.0); MCHC 32.7 g/dL (28.0-37.0); MCV 81.1 fL (80.0-100.0); RBC 2.76 mil/uL (4.50-6.00); RDW 17.4 % (10.5-14.5); WBC 9.8 thou/uL (4.0-11.0)
[2019-06-18 05:31] VITALS: BP 129/62
--- NOTE | 2019-06-18 11:41 | NUR ---
Followup: lung cancer s/p lobectomy, thoracotomy with muscle flap closure. Repeat surgery this am VATS, and wound vac replacement. Eating about 50-100% of meals and tolerating supplements >85% of 3 per day. States getting a little tired of them but will drink them. Did not want to try any new flavors or different types. Wts remain in 150s. Prealbumin 14.8-would anticipate this to remain low until improved inflammatory process. On MVI and zinc sulfate supplementation. Ambulating. Physician has indicated severe protein calorie malnutrition: RD will defer. Remains low nutrition risk with appropriate nutrition interventions in place.
--- NOTE | 2019-06-18 16:41 | NUR ---
PT ALERT AND ORIENTED. VSS. HAD VATS AND WOUND VAC REPLACEMENT. DENIED HAVING PAIN OR DISCOMFORT. AT THE BEDSIDE. WOUNDVAC INTACT. NO CARDIAC OR RESPIRATORY DISTRESS NOTED. WILL CONTINUE TO MONITOR.
[2019-06-18 17:09] VITALS: BP 103/54
--- NOTE | 2019-06-18 19:41 | O ---
[facility] [place] [address] OPERATIVE REPORT Name: MILLA PERALTA Room #: 208-P ADM IN M.R.#: [id number] Admission: 05/26/19 Attend Phys: Francisco Raymond MD Discharge: Date of : 53 Report #: [id number] THIS REPORT FOR: //name// CC: [facility] physician/PCP Francisco Raymond DATE OF SERVICE: 06/14/2019 PREOPERATIVE DIAGNOSIS: Bronchopleural fistula. POSTOPERATIVE DIAGNOSIS: Bronchopleural fistula. OPERATION: Bronchoscopy, left video-assisted thoracoscopy and a wound VAC change. SURGEON: Lavell Whelan MD. PANTRY STEWARD/STEWARDESS: VARGHESE Shankar. ANESTHESIA: General. INDICATIONS: The patient is a 64-year-old with a bronchopleural fistula, status post left lower lobectomy. The patient has had closure of the fistula both with direct suture and intercostal muscle flap coverage. Unfortunately, the leak has persisted and we have used wound VAC to cleanse the persistent pleural space and to help with granulation and healing. FINDINGS AND TECHNIQUE: After general anesthesia was established, flexible diagnostic bronchoscopy was performed. I inspected the bronchial stump and only one small area was discontinuous at the corner of the bronchial closure. Double lumen endotracheal tube was placed and the patient was positioned with left side up. Exposure was obtained with the video-assisted thoracoscopic through the open chest tube sites. There was an anterior cavity that was clean. This was cultured and then irrigated with copious amounts of saline and antibiotic solution. The more posterior cavity, where the flap was covering the fistula, was lined with granulation tissue. Unfortunately, when air was then instilled through the left bronchus, there was a bubble, this area seemed to be granulating though and was clean and cultures were taken once again. The wound VAC was removed at the outside of the case and we replaced the VAC using Dermaseal fine mesh gauze to cover the most deep part and the regular [facility] [address] [place] [address] OPERATIVE REPORT Name: MILLA PERALTA Room #: 208-P [facility]#: [id number] Admission: 05/26/19 Attend Phys: Francisco Raymond MD Discharge: Date of : 53 Report #: [id number] coarse mesh gauze externally. The patient tolerated the procedure well and was returned to the recovery area in good condition. <ELECTRONICALLY SIGNED> By: Lavell Whelan MD 06/18/19 [id number] Lavell Whelan MD /nt
[2019-06-18 20:43] VITALS: BP 120/63
[2019-06-19 04:33] VITALS: BP 114/65
--- NOTE | 2019-06-19 07:33 | NUR ---
A/O X 4. AT BEDSIDE.PAIN WELL CONTROLLED WITH TYLENOL.WOUND VAC STOPPED WORKING,REPLACED WITH ANOTHER MACHINE BROUGHT BY WILMA DULSER.REPORTED TO [facility] ABOUT THE WOUND VAC.INFORM THEM THAT THE VAC IS IN THE DIRTY UTILITY ROOM IN [facility].REFERENCE NUMBER IS [id number].POC CONTINUED.
[2019-06-19 08:42] VITALS: BP 117/61
--- NOTE | 2019-06-19 10:09 | NUR ---
[facility]ED RE[facility]ERRAL TO [facility]. CONFIRMED WITH JAZLYN/VICKY. SHE RECEIVED REFERRAL AND WILL BEGIN AUTHORIZATION PROCESS. DC TO FOLLOW.
[2019-06-19 11:13] VITALS: BP 106/50
--- NOTE | 2019-06-19 16:59 | NUR ---
ASSESSMENT CHARTED. PT ALERT AND ORIENTED. VSS. DENIED HAVING PAIN OR DISCOMFORT. AMBULATED X2 THIS SHIFT. WOUND VAC INTACT. NO CONCERNS AT THIS TIME. WILL CONTINUE TO MONITOR.
[2019-06-19 20:07] VITALS: BP 127/69
[2019-06-20 04:58] VITALS: BP 134/69
[2019-06-20 05:38] LABS: HEMATOCRIT 24.2 % (42.0-52.0); HEMOGLOBIN 7.9 gm/dL (14.0-18.0); MCH 26.4 pg (26.0-34.0); MCHC 32.9 g/dL (28.0-37.0); MCV 80.5 fL (80.0-100.0); WBC 8.9 thou/uL (4.0-11.0)
[2019-06-20 05:53] LABS: CALCIUM 8.2 mg/dL (8.5-10.1); CREATININE 0.6 mg/dL (0.7-1.3); MAGNESIUM 1.8 mg/dL (1.8-2.4); POTASSIUM 3.7 mmol/L (3.5-5.1)
[2019-06-20 08:50] VITALS: BP 137/59
--- NOTE | 2019-06-20 09:16 | NUR ---
PAIN FAIRLY CONTROLLED WITH TYLENOL.UP IN THE HALLWAYS SEVERAL TIMES.MONITOR SHOWS SINUS RHYTHM.POC CONTINUED.
--- NOTE | 2019-06-20 16:21 | NUR ---
ASSUMMED PT CARE AT APPROXIMATELY 0700. PT A&O X4. ASSESSMENT CHARTED. FALL PRECAUTIONS IN PLACE. PT DENIES HAVING CARDIAC CHEST PAIN. PT DENIES HAVING SOB. PT STATED HE HAD ACUTE PAIN IN HIS L SIDE OF HIS CHEST/BACK. PT RECEIVED ANALGESICS. PT STATED ANALGESICS HELPED RELIEVE PAIN. DR. COLLAZO STATED THAT HE WANTED PT TO RECEIVE LOVENOX TODAY. DR. COLLAZO ALSO STATED THAT PT COULD HAVE CLR LIQUIDS AT MIDNIGHT AND UP TO TWO HOURS BEFORE HIS PROCEDURE TOMORROW. COMMUNICATED THESE ORDERS TO MEAT INSPECTOR RN. PT AMBULATED AROUND UNIT X3. PT STEADY WHEN AMBULATING. VITAL SIGNS STABLE. PT COMFORTABLE IN BED. PT DENIES HAVING FURTHER CONCERNS.
[2019-06-20 17:30] VITALS: BP 127/61
[2019-06-20 20:15] VITALS: BP 128/67
[2019-06-21 04:45] VITALS: BP 132/69
[2019-06-21 05:19] LABS: HEMATOCRIT 23.4 % (42.0-52.0); HEMOGLOBIN 7.7 gm/dL (14.0-18.0); MCH 26.6 pg (26.0-34.0); MCHC 32.9 g/dL (28.0-37.0); PLATELET COUNT 623 thou/uL (150-400); RBC 2.89 mil/uL (4.50-6.00); RDW 17.5 % (10.5-14.5); WBC 8.4 thou/uL (4.0-11.0)
[2019-06-21 05:58] LABS: ALBUMIN 1.7 g/dL (3.4-5.0); CALCIUM 8.3 mg/dL (8.5-10.1); CREATININE 0.6 mg/dL (0.7-1.3); MAGNESIUM 1.8 mg/dL (1.8-2.4); POTASSIUM 3.4 mmol/L (3.5-5.1); TOTAL BILIRUBIN 0.2 mg/dL (<0.1-1.0); TOTAL PROTEIN 5.6 g/dL (6.4-8.2)
--- NOTE | 2019-06-21 06:37 | NUR ---
ASSUMED PT CARE AT 1900. VSS. PT A&0X4, STEADY ON HIS FEET. PT COMPLAINED OF PAIN WHICH WAS MANAGED WITH TYLENOL. LE BACK HAD 27 SONI IN. PT SEEMED TO GET GOOD NIGHT SLEEP. WOUND VAC HAD 210ML OUT THIS SHIFT. WAS WHEELED OFF THE UNIT AROUND 0625 FOR HIS PROCEDURE FOR WHICH HE HAD EH NPO BUT ON CLR LIQUIDS TILL 5AM PER DR. COLLAZO. NOW ON STANDBY ON THE MONITOR, WILL CONTINUE TO MONITOR PER POC
[2019-06-21 10:03] VITALS: BP 118/64
[2019-06-21 12:13] LABS: ABSOLUTE NEUTROPHILS 5.3 thou/uL (1.4-8.2); ANISOCYTOSIS 1+; HYPOCHROMASIA 2+
[2019-06-21 12:14] LABS: OVALOCYTES FEW
[2019-06-21 16:24] VITALS: BP 121/64
--- NOTE | 2019-06-21 17:09 | NUR ---
ASSUMMED PT CARE AT APPROXIMATELY 0700. PT A&O X4. ASSESSMENT CHARTED. FALL PRECAUTIONS IN PLACE. PT DENIES HAVING CHEST PAIN. PT DENIES HAVING SOB. PT DENIES HAVING ACUTE PAIN. VITAL SIGNS STABLE. PT AND PT'S FAMILY EDUCATED ABOUT POC. PT AND PT'S FAMILY STATED UNDERSTANDING AND DENIED HAVING FURTHER QUESTIONS. PT RETURNED FROM BRONCHOSCOPY AND WOUND VAC CHANGE AT APPROXIMATELY 1000. SEE WOUND CARE ASSESSMENTS. VARGHESE DEL CASTILLO ORDERED PT COULD LEAVE FLOOR TO [facility] IF TEMP IS > 50 DEGREES. TEMP WAS APPROPRIATE, I TOOK PT OUT TO [facility]. PT TOLERATED WELL. FAMILY REQUESTED TO SPEAK TO DR. HART. DR. HART NOTIFIED. DR. HART SPOKE C PT AND PT'S FAMILY. PT COMFORTABLE IN BED. PT DENIES HAVING FURTHER CONCERNS.
[2019-06-21 20:30] VITALS: BP 109/64
[2019-06-22 04:45] VITALS: BP 122/83
--- NOTE | 2019-06-22 07:04 | HC ---
[facility] [place] [address] CONSULTATION Name: MILLA PERALTA Room #: 208-P ADM IN M.R.#: [id number] Admission: 05/26/19 Attend Phys: Sal Dukes MD Discharge: Date of : 53 Report #: [id number] THIS REPORT FOR: //name// CC: Nestor Lee MD [facility] physician/PCP ANYA Dukes REASON FOR CONSULTATION: Thrombocytosis and leukocytosis. HISTORY OF PRESENT ILLNESS: The patient is a 64-year-old patient well known to me from a recent admission. 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 The patient's recent blood counts were notable for a platelet count of 623,000. Note that back on the , they were 305,000. Before this, it had been much lower. The patient has had several bronchoscopies and left VATS on 06/21/2019, 06/18/2019, 06/14/2019, 06/11/2019 among other dates. During the same time, his white count that was up around 13,000 on 06/14/2019 is now down to 8400. His differential has remained without acute forms but has had a few extra monocytes. His hemoglobin has been slightly low at 7.7, but it has been in the 8-10 range since that time and a little bit more lower lately. The patient also remains on fluconazole for anti-infective measures. PAST MEDICAL HISTORY: Notable for the history of the stage 1B, T2a N0 M0 3.7 cm tumor that was PD-L1 expression, but negative for the mutations. Also has a history of coronary artery bypass on 04/03/2019. History of hyperlipidemia, COPD, history of an appendectomy and also mood disorder. Also, left inguinal hernia repair and anxiety and maybe depression and GERD. SOCIAL HISTORY: The patient stopped smoking before surgery for his heart in 03/2019, has not drank alcohol for about 23 years. Before that it had been heavy. No street drugs. 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 His , Keke, is present. They live in [place], [place]. FAMILY HISTORY: Father had lung cancer, in his 60s. Mother had cervical cancer. Three brothers, 2 had heart trouble. Three sisters, no specific illnesses. Two children. No specific illnesses. MEDICATIONS: At this time include fluconazole 200 mg daily p.o., calcium carbonate 500 daily, multivitamins with minerals 1 tab daily, aspirin 81 mg daily, pantoprazole 40 daily, phenylephrine and mineral oil to affected area q.i.d. topically, zinc sulfate 220 mg t.i.d., Lovenox 80 mg b.i.d., metoprolol [address] [address] CONSULTATION Name: MILLA PERALTA Room #: 208-P [facility]#: [id number] Admission: 05/26/19 Attend Phys: Sal Dukes MD Discharge: Date of : 53 Report #: [id number] 25 b.i.d., atorvastatin calcium 40 mg at bedtime, ipratropium and albuterol 3 mL respiratory therapy. The patient is also on ampicillin and sulbactam IV q. 6 hours. Also, melatonin p.r.n., MiraLax at night, simethicone p.r.n. Note the patient also has DVTs with finding on 06/08/2019 of bilateral axillary vein thrombosis, even on the basilic veins as well as the left cephalic. ASSESSMENT AND PLAN: 1. Thrombocytosis. Given the multiple bronchoscopies and VATS procedures and fistula and antibiotics and infection, this is most likely reactive. Also, note that the patient's platelet counts were fairly normal about a month ago and before this. This most likely is reactive related to inflammation. I do not believe additional workup is needed at this time. 2. Bronchopleural fistula. Defer to Dr. Whelan, has a wound VAC in place. 3. History of empyema, currently on sulbactam and ampicillin as well as fluconazole. 4. History of bilateral upper extremity deep venous thrombosis, on Lovenox. 5. History of coronary artery disease. Meds per others. 6. Emphysema. Inhalers and meds per others. We will follow with you. <ELECTRONICALLY SIGNED> By: Dutch Mora MD 06/22/19 0704 [id number] Dutch Mora MD /nt
--- NOTE | 2019-06-22 07:29 | NUR ---
ASSUMED PT CARE AT 1900.VSS. PT A&0X4. TYLENOL GIVEN FOR PAIN NEEDED. PT HAD AN UNEVENTFUL NOC. HAD 150 OUT FROM HIS WOUND VAC. PT IS STABLE AND PROGRESSING WELL TOWARDS POC.
[2019-06-22 07:55] VITALS: BP 129/72
--- NOTE | 2019-06-22 10:58 | NUR ---
WAS NOTIFIED BY JAZLYN FROM [facility] THAT THEY DO NOT ACCEPT PT'S INSURANCE OF 06/20/19 IT CHANGED TO [employer]. FAXED REFERRAL TO [facility] SPOKE WITH RODERICK IN INTAKE THEY ARE OUR OF NETWORK.
[2019-06-22 11:50] VITALS: BP 116/62
--- NOTE | 2019-06-22 13:29 | NUR ---
24 hour calorie count completed-see results in computer under RD calorie count. Pt eating very well and meeting nutrition goals. Please weigh standing for all future wts.
--- NOTE | 2019-06-22 14:01 | NUR ---
Dc marketing planner working on HH referral for next week as the [facility] is now out of network with the pt's ins plan. [facility], [facility], [facility], [facility],and [facility] are also either oon or do not cover JULIANNA Zuniga. Will try [facility]. Pt scheduled for the OR on Tuesday per CTS. Pt up and walking on unit with his spouse and a rwalker. Permission given for spouse to take the pt off the unit briefly to go outside or to the courtyard. Pt in better spirits today. Dc home anticipated early next week.
[2019-06-22 16:00] VITALS: BP 122/74
--- NOTE | 2019-06-22 20:00 | NUR ---
ASSUMED CARE PT SHIFT CHANGE. ASSESSMENTS CHARTED. MEDS GIVEN PER AUG. PT ALERT AND ORIENTED, VSS. C/O PAIN IN BACK WHERE INCISION AND WOUND VAC ARE--MANAGED WITH TYLENOL PER PT REQUEST. O2 SATS WNL ON ROOM AIR. PT UP AD AIDA TOLERATING WELL. APPETITE ADEQUATE. NO C/O SOB. WOUND VAC CONNECTED AND DRAINING APPROPRIATELY. FAMILY AT BEDSIDE THROUGHOUT SHIFT. PT DENIES NEEDS AT THIS TIME. WILL CONT TO MONITOR AND FOLLOW POC.
[2019-06-22 20:31] VITALS: BP 131/75
[2019-06-23 05:15] VITALS: BP 133/74
--- NOTE | 2019-06-23 06:30 | NUR ---
ASSUMED PT CARE AT 1900, PT A&OX4, COMPLAINED OF BACK PAIN MANAGED BY TYL PER PT REQUEST, VS WITHIN NORMAL, O2SAT STABLE ON ROOM AIR, WOUND VAC IN PLACE DRAINING WITH NO DIFFICULTY, AMBULATED ON THE HALLWAY 2X. NO COMPLAINS OF CHEST PAIN OR SOB, RESTED WELL THROUGHOUT THE NIGHT, WILL CONTINUE TO MONITOR
[2019-06-23 08:00] VITALS: BP 144/71
[2019-06-23 11:44] LABS: HEMOGLOBIN 9.1 gm/dL (14.0-18.0)
[2019-06-23 11:51] LABS: HEMATOCRIT 28.4 % (42.0-52.0); MCH 25.8 pg (26.0-34.0); MCHC 31.9 g/dL (28.0-37.0); MCV 81.1 fL (80.0-100.0); RDW 18.9 % (10.5-14.5)
[2019-06-23 11:56] LABS: PLATELET COUNT 900 thou/uL (150-400)
[2019-06-23 12:05] VITALS: BP 120/57
[2019-06-23 12:14] LABS: ABSOLUTE NEUTROPHILS 8.2 thou/uL (1.4-8.2); MYELOCYTES 1 %
[2019-06-23 12:15] LABS: ANISOCYTOSIS 2+
[2019-06-23 12:18] LABS: ALBUMIN 2.2 g/dL (3.4-5.0); CALCIUM 8.8 mg/dL (8.5-10.1); CREATININE 0.7 mg/dL (0.7-1.3); MAGNESIUM 1.8 mg/dL (1.8-2.4); POTASSIUM 3.9 mmol/L (3.5-5.1); TOTAL BILIRUBIN 0.2 mg/dL (<0.1-1.0); TOTAL PROTEIN 6.3 g/dL (6.4-8.2)
[2019-06-23 16:00] VITALS: BP 111/65
--- NOTE | 2019-06-23 17:50 | NUR ---
ASSUMED CARE AT SHIFT CHANGE, ALERT AND ORIENTED X4. ASSESSMENT DOCUMENTED. MEDICATED FOR MILD BACK PAIN NEEDED. LT UPPER CHEST INCISION OPEN TO AIR AND WELL APPROXIMATED. WV INPLACE AND FUNCTIONING, AND CANESTER CHANGED. PATIENT PROGRESING TOWARD GOALS. WILL CONTINUE WITH POC.
[2019-06-23 20:55] VITALS: BP 111/63
--- NOTE | 2019-06-24 03:10 | NUR ---
ASSESSMENT DOCUMENTED.PT BEEN RESTING IN NO ACUTE DISTRESS.A/OX4.VSS.AMBULATED ON THE HALLWAY BEFORE GOING TO BED,TOLEARTED.TYLNENOL GIVEN FOR PIN UPON PT REQUEST.INCISION W/SONI WELL APPROXIMATED.WOUND VAC IN PLACE,SUCTION.FAMILY AT BEDSIDE.DENIES ANY NEEDS AT THIS TIME.WILL CONT WITH POC
[2019-06-24 05:39] VITALS: BP 132/72
[2019-06-24 07:55] VITALS: BP 126/71
[2019-06-24 12:00] VITALS: BP 119/62
[2019-06-24 16:35] VITALS: BP 140/88
--- NOTE | 2019-06-24 18:35 | NUR ---
ASSUMED CARE AT SHIFT CHANGE, UP WALKING WITH FAMILY. C/O MILD PAIN TO LT BACK UPPER CHEST, MEDICATED WITH TYLENALL. WOUND VAC WAS LEAKING AND DRESSING REINFORCED. AND WILL CONTINUE WITH POC.
[2019-06-24 21:01] VITALS: BP 132/71
--- NOTE | 2019-06-25 01:42 | NUR ---
ASSUMED CARE OF PATIENT AT 1900. VSS, AFEBRILE. C/O DULL PAIN AROUND INCISION SITE. TYLENOL GIVEN, REFUSES NARCOTICS. UPSET BECAUSE HE HAS NOT BEEN ABLE TO GET A FULL NIGHT SLEEP. NOTE PLACED ON DOOR ADVISING ANCILLARY STAFF TO SEE RN BEFORE ENTERING. ALSO UNHAPPY BECAUSE ORDERS PLACED FOR NPO AT MIDNIGHT, STATES HE HASN'T HAD TO BE NPO FOR HIS PROCEDURES. COMPROMISED WITH NPO AFTER 2 AM. FAMILY AT BEDSIDE. FLUID LEAKING NOTED AT TIMES OF IRRIGATION. SHEETS CHANGED TWICE. WOUND VAC SITE REINFORCED WITH TRANSPARENT DRESSING. LEAK CHECKED ON WOUND VAC, DID NOT NOTE LEAK. RESTING THROUGH THE NIGHT. ANTICIPATING WOUND VAC CHANGE AND POSSIBLE TRANSFER TO [facility] ON TUE.
[2019-06-25 04:56] VITALS: BP 115/69
[2019-06-25 08:00] VITALS: BP 122/65
--- NOTE | 2019-06-25 14:59 | NUR ---
MORNING ASSESMENT DOCUMENTED, VSS AND AFEBRILE. PATIENT WAS TAKEN TO SURGERY AROUND 1030.
--- NOTE | 2019-06-25 15:09 | NUR ---
Spoke with Ashlee from [facility] who reports in discussion of patient transferring to [facility] for consult with Dr Blake induction heating equipment setter regarding bronchopleural fistula. Sp with Simone at [facility] discussed patient to be in procedure here at [facility] tuesday am with planned transfer Tuesday evening. To see Dr Blake on per [facility]TS. Faxed clinical information and uploaded disc to [facility]. Dr Blake prefers [facility] to sp with Dr Tovar for admission. Updated Ashlee with [facility]TS they may call today. Updated Simone that patient be accepted back once stable to dc from [facility]. She reports their phys will determine.
[2019-06-25 16:10] VITALS: BP 120/66
--- NOTE | 2019-06-25 19:23 | NUR ---
ASSUMED CARE AT 1500, CAME BACK FROM PROCEDURE AT 1515, WOUND VAC SITE IS CLEAN ,DRY, INTACT, HOOKED UP TO VAC ULTRA, NO ISSUES WITH THE VAC. SURGICAL SITE TO LEFT BACK IS CLEAN, DRY, INTACT. REPORTED SOME PAIN, 4/10 PRN TYLENOL GIVEN. WILL CONTINUE TO ASSESS AND ASSIST WITH ADLs NEEDED.
[2019-06-25 20:24] VITALS: BP 104/61
--- NOTE | 2019-06-26 02:36 | NUR ---
ASSUMED CARE OF PATIENT AT 1900. VSS, AFEBRILE. UP TO WALK THE HALLS 2 TIMES. RESTING THROUGH THE NIGHT. REQUESTED LIMITED INTERRUPTIONS TO SLEEP. AT BEDSIDE. WOUND VAC IN PLACE, SEE DOCUMENTATION. ANTICIPATING DC TO [facility] TUE. PAIN MANAGED WELL WITH TYLENOL NEEDED. WORKING TOWARDS POC GOALS.
[2019-06-26 05:18] VITALS: BP 122/62
[2019-06-26 08:15] VITALS: BP 115/59
--- NOTE | 2019-06-26 11:26 | NUR ---
ASSUMED CARE AT 0700, SHIFT ASSESMENT DONE, MEDS GIVEN, VSS, DENIES PAIN, NAUSEA, VOMITING. UP AD AIDA, WALKING AROUND IN THE UNIT. NSR ON TELE, ROOM AIR. WOUND VAC TO LEFT LOWER CHEST, WITH VERA FLOW, LOBECTOMY SIDE DRESSING HAS SONI ON THEM, CLEAN, DRY, INTACT. WILL CONTINUE TO ASSESS AND ASSIST WITH ADLs NEEDED.
[2019-06-26 11:30] VITALS: BP 101/54
--- NOTE | 2019-06-26 13:51 | NUR ---
Spoke with Simone at [facility] to question if Srinivas called yesterday and if their is a rec phys at this time. She reports no rec phys. She reports they need to call the day planned admit. Teressa is patient assessment coordinator in am. She will have their hospitalist call Dr Tovar for transfer. Casemgt to call Srinivas in am regarding planned tranfer to [place] in tomorrow.
[2019-06-26 17:19] VITALS: BP 120/66
[2019-06-26 19:58] VITALS: BP 114/71
[2019-06-27 04:45] VITALS: BP 107/64
--- NOTE | 2019-06-27 05:10 | NUR ---
PATIENTS CARES WERE ASSUMED AT SHIFT CHANGE. PATIENT WAS ASSESSED AND MEDS WERE PASSED. HOURLY ROUNDS WERE DONE. THE BED IS IN A LOW AND LOCKED POSITION. THE BED ALARM IS ON. PATIENT DID SHOWER BEFORE BED. HE WILL HAVE A PROCEDURE HERE THEN HE WILL DISCHARGE TO GO TO [facility] for another procedure.
[2019-06-27 10:20] VITALS: BP 119/62
--- NOTE | 2019-06-27 10:43 | O ---
[facility] [place] [address] OPERATIVE REPORT Name: MILLA PERALTA Room #: 208-P ADM IN M.R.#: [id number] Admission: 05/26/19 Attend Phys: Sal Dukes MD Discharge: Date of : 53 Report #: [id number] THIS REPORT FOR: //name// CC: JER[facility] physician/PCP Sal Dukes DATE OF SERVICE: 06/27/2019 PREOPERATIVE DIAGNOSIS: Bronchopleural fistula. POSTOPERATIVE DIAGNOSIS: Bronchopleural fistula. OPERATION: Bronchoscopy, left video-assisted thoracoscopy and wound VAC change. SURGEON: Lavell Whelan MD ANESTHESIA: General. INDICATIONS: The patient is a 64-year-old with bronchopleural fistula, status post lower lobectomy. This has been closed primarily and covered with a muscle flap, but there is still a persistent air leak. FINDINGS AND TECHNIQUE: After general anesthesia was established, the bronchoscopy was performed. A small persistent fistulous opening was identified in the bronchial stump. The patient was positioned with left side up after a double lumen endotracheal tube was placed. Video-assisted thoracoscopy was done after the wound VAC sponges were removed. The anterior cavity was clean and lined with pristine granulation tissue. The posterior cavity looked very similar, but when ventilation was performed an air leak was seen. Wound was irrigated with antibiotic solution and then the wound VAC was placed using fine mesh gauze at the most deep portion. The patient tolerated all this well and was taken to the recovery area in good condition. <ELECTRONICALLY SIGNED> By: Lavell Whelan MD 06/27/19 1043 [id number] Lavell Whelan MD /nt
--- NOTE | 2019-06-27 10:43 | O ---
[facility] [place] [address] OPERATIVE REPORT Name: MILLA PERALTA Room #: 208-P ADM IN M.R.#: [id number] Admission: 05/26/19 Attend Phys: Sal Dukes MD Discharge: Date of : 53 Report #: [id number] THIS REPORT FOR: //name// CC: [facility] physician/PCP Francisco Raymond PREOPERATIVE DIAGNOSIS: Bronchopleural fistula. POSTOPERATIVE DIAGNOSIS: Bronchopleural fistula. OPERATION: Bronchoscopy, left video-assisted thoracoscopy and wound VAC change. SURGEON: Lavell Whelan MD BUSINESS DEVELOPMENT AGENT: VARGHESE Shankar. ANESTHESIA: General. INDICATIONS: The patient is a 64-year-old with a bronchopleural fistula, status post left lower lobectomy. The patient has had several explorations of this with the muscle flap closure, indirect coverage. Unfortunately, this has been persistent, but small leak. The patient was returned to the operating room today. FINDINGS AND TECHNIQUE: After general anesthesia was established, flexible diagnostic bronchoscopy was performed. The bronchial stump still had a tiny opening at one end of it. There appeared to be no inflammation and no irritation or granulation tissue. Double lumen endotracheal tube and the patient was positioned with left side up. The old wound VAC was removed and the chest was inspected. The chest was irrigated with copious amounts of antibiotic solution. We tested the bed of the more posterior cavity and found that there was still a point source for air leak. There was no evidence of infection and in fact granulation tissue starting to line the wound. The wound VAC was replaced and after the irrigation was performed, the patient was returned to the recovery area having tolerated the procedure well. <ELECTRONICALLY SIGNED> By: Lavell Whelan MD 06/27/19 1043 [id number] Lavell Whelan MD /nt
--- NOTE | 2019-06-27 11:40 | NUR ---
PT CARE ASSUMED APPROX 1020. ASSESSMENT CHARTED. PT OFF UNIT UPON ARRIVAL TO UNIT. PT UNEVENTFULLY COMPLETED WOUND VAC CHANGE THIS AM IN OR PRIOR TO HOSPITAL TRANSFER TO [facility] FOR PROCEDURE TOMORROW. PT AND SPOUSE DENIED QUESTIONS OR CONCERNS REGARDING POC OR TRNASFER. REPORT CALLED TO HEIDE ALVAREZ. SHE ALSO DENIES QUESTIONS OR CONCERNS. PT IV PATENT. TELE BOX OFF. UP WITH STEADY GAIT. VSS. NO DISTRESS NOTED.
--- NOTE | 2019-06-27 11:53 | NUR ---
WOUND VAC DSG C/D/I UPON DISMISSAL. AWARE TO BE SURE [facility] RETURNS WITH PT ON TUESDAY FOR PLANNED READMISSION. RECEIVING NURSE ALSO AWARE THAT VAC NEEDS TO STAY ON PT AT ALL TIMES AND RETURN WITH HIM TUESDAY.
--- NOTE | 2019-06-27 14:01 | NUR ---
Called [facility] transfer center and sp with performance improvement coordinator Arti. Arti reports private room [address] Dukes who sp with Dr Tovar. She reports they are able to accept patient at any time. [facility] for 1130. RN notfied and given number for report. Updated phys. Sp with , transfer form completed and signed. Plan for patient to have procedure and retur Tuesday with goal to return Tuesday to [facility] early. RN to request in report that patient be made NPO on Tuesday prior to return. no further needs
--- NOTE | 2019-06-29 16:47 | O ---
[facility] [place] [address] OPERATIVE REPORT Name: MILLA PERALTA Room #: 208-P [facility] IN M.R.#: [id number] Admission: 05/26/19 Attend Phys: Sal Dukes MD Discharge: 06/27/19 Date of : 53 Report #: [id number] THIS REPORT FOR: //name// CC: [facility] physician/PCP Sal Dukes DATE OF SERVICE: 06/25/2019 PREOPERATIVE DIAGNOSIS: Bronchopleural fistula. POSTOPERATIVE DIAGNOSIS: Bronchopleural fistula. OPERATION: Bronchoscopy, left video-assisted thoracoscopy and wound VAC change. SURGEON: Lavell Whelan MD ANESTHESIA: General. INDICATIONS: The patient is a 64-year-old with bronchopleural fistula. We have been treating this with wound VAC, irrigation set up in the hopes that all muscle flap will heal over the small, but persistent bronchopleural fistula. TECHNIQUE: After general anesthesia was established, flexible diagnostic bronchoscopy was performed. A small opening at the angle of the left lower lobe bronchus was identified. The bronchus itself appeared to be uninvolved with inflammatory tissue. A double lumen endotracheal tube was placed. The patient was positioned with left side up and we removed the old wound VAC covered with the fine mesh gauze at the most deep portion. The 2 persistent cavities were inspected and more anterior cavity was lined with granulation tissue and appeared to be healing. There was no evidence of leak through that. The more posterior cavity was lined with granulation tissue, but when ventilation was done, we could still see bubbles through the small fistula. Both cavities were irrigated with antibiotic solution and then wound VAC was replaced. The patient tolerated the procedure well. <ELECTRONICALLY SIGNED> By: Lavell Whelan MD 06/29/19 1647 [id number] 1032 Lavell Whelan MD /nt
== END 2019-06-27 12:27 | disposition home health service (06) | DRG 853 ==
LOC: PRE 18:08 → ICU 20:07 → 2N 20:07 → ICU 21:21 → 2N 05-29 17:28 → ICU 06-01 15:59 → 2N 06-12 15:31
PROVIDERS: Anesthesiology; Hospitalist; Internal Medicine; Internal Medicine Pulmonary Disease; Nurse Practitioner Family; Physician Assistant; ADMIT Internal Medicine
PROC: 0W9B00Z Drainage of Left Pleural Cavity with Drainage Device, Open Approach (ICD-10-PCS; 2019-05-28)
PROC: 0BJ08ZZ Inspection of Tracheobronchial Tree, Via Natural or Artificial Opening Endoscopic (ICD-10-PCS; 2019-05-28)
PROC: 0W9B4ZZ Drainage of Left Pleural Cavity, Percutaneous Endoscopic Approach (ICD-10-PCS; 2019-05-28)
PROC: 0BJ08ZZ Inspection of Tracheobronchial Tree, Via Natural or Artificial Opening Endoscopic (ICD-10-PCS; 2019-06-01)
PROC: 0BJ08ZZ Inspection of Tracheobronchial Tree, Via Natural or Artificial Opening Endoscopic (ICD-10-PCS; 2019-06-04)
PROC: 0PB10ZZ Excision of 1 to 2 Ribs, Open Approach (ICD-10-PCS; 2019-06-04)
PROC: 0KXJ0ZZ Transfer Left Thorax Muscle, Open Approach (ICD-10-PCS; 2019-06-04)
PROC: 0W9B0ZZ Drainage of Left Pleural Cavity, Open Approach (ICD-10-PCS; 2019-06-04)
PROC: 0BJ08ZZ Inspection of Tracheobronchial Tree, Via Natural or Artificial Opening Endoscopic (ICD-10-PCS; 2019-06-06)
PROC: 2W04X6Z Change Pressure Dressing on Chest Wall (ICD-10-PCS; 2019-06-06)
PROC: 0BJQ4ZZ Inspection of Pleura, Percutaneous Endoscopic Approach (ICD-10-PCS; principal; 2019-06-08)
PROC: 0BJ08ZZ Inspection of Tracheobronchial Tree, Via Natural or Artificial Opening Endoscopic (ICD-10-PCS; principal; 2019-06-08)
PROC: 0W9B0ZZ Drainage of Left Pleural Cavity, Open Approach (ICD-10-PCS; principal; 2019-06-08)
PROC: 0KXJ0ZZ Transfer Left Thorax Muscle, Open Approach (ICD-10-PCS; principal; 2019-06-08)
PROC: 0BJ08ZZ Inspection of Tracheobronchial Tree, Via Natural or Artificial Opening Endoscopic (ICD-10-PCS; 2019-06-11)
PROC: 2W04X6Z Change Pressure Dressing on Chest Wall (ICD-10-PCS; 2019-06-11)
PROC: 0BJ08ZZ Inspection of Tracheobronchial Tree, Via Natural or Artificial Opening Endoscopic (ICD-10-PCS; 2019-06-14)
PROC: 2W04X6Z Change Pressure Dressing on Chest Wall (ICD-10-PCS; 2019-06-14)
PROC: 0BJQ4ZZ Inspection of Pleura, Percutaneous Endoscopic Approach (ICD-10-PCS; 2019-06-14)
PROC: 0BJ08ZZ Inspection of Tracheobronchial Tree, Via Natural or Artificial Opening Endoscopic (ICD-10-PCS; 2019-06-18)
PROC: 2W04X6Z Change Pressure Dressing on Chest Wall (ICD-10-PCS; 2019-06-18)
PROC: 2W04X6Z Change Pressure Dressing on Chest Wall (ICD-10-PCS; 2019-06-25)
PROC: 0BJ08ZZ Inspection of Tracheobronchial Tree, Via Natural or Artificial Opening Endoscopic (ICD-10-PCS; 2019-06-25)
PROC: 0BJQ4ZZ Inspection of Pleura, Percutaneous Endoscopic Approach (ICD-10-PCS; 2019-06-25)
PROC: 2W04X6Z Change Pressure Dressing on Chest Wall (ICD-10-PCS; 2019-06-27)
PROC: 0BJQ4ZZ Inspection of Pleura, Percutaneous Endoscopic Approach (ICD-10-PCS; 2019-06-27)
PROC: 0BJ08ZZ Inspection of Tracheobronchial Tree, Via Natural or Artificial Opening Endoscopic (ICD-10-PCS; 2019-06-27)
DX: A41.9 Sepsis, unspecified organism (principal); J18.9 Pneumonia, unspecified organism; J96.01 Acute respiratory failure with hypoxia; J86.0 Pyothorax with fistula; E43 Unspecified severe protein-calorie malnutrition; Z68.1 Body mass index [BMI] 19.9 or less, adult; J94.2 Hemothorax; I82.629 Acute embolism and thrombosis of deep veins of unspecified upper extremity; J95.812 Postprocedural air leak; I82.623 Acute embolism and thrombosis of deep veins of upper extremity, bilateral; C34.90 Malignant neoplasm of unspecified part of unspecified bronchus or lung; J44.1 Chronic obstructive pulmonary disease with (acute) exacerbation; D62 Acute posthemorrhagic anemia; I25.10 Atherosclerotic heart disease of native coronary artery without angina pectoris; F41.9 Anxiety disorder, unspecified; E78.5 Hyperlipidemia, unspecified; F32.9 Major depressive disorder, single episode, unspecified; I10 Essential (primary) hypertension; B95.5 Unspecified streptococcus as the cause of diseases classified elsewhere; K21.9 Gastro-esophageal reflux disease without esophagitis; M19.90 Unspecified osteoarthritis, unspecified site; K59.00 Constipation, unspecified; D64.9 Anemia, unspecified; D47.3 Essential (hemorrhagic) thrombocythemia; Z87.891 Personal history of nicotine dependence; Z95.1 Presence of aortocoronary bypass graft; Z90.2 Acquired absence of lung [part of]; Z90.89 Acquired absence of other organs; Z80.1 Family history of malignant neoplasm of trachea, bronchus and lung; I25.2 Old myocardial infarction; Z86.73 Personal history of transient ischemic attack (TIA), and cerebral infarction without residual deficits; Z91.048 Other nonmedicinal substance allergy status; Z79.82 Long term (current) use of aspirin; Z79.891 Long term (current) use of opiate analgesic; Z79.899 Other long term (current) drug therapy; Z80.49 Family history of malignant neoplasm of other genital organs
CPT/HCPCS: 10078; 10081; 27000; 47405; 50010; 50101; 50366; 50386; 50417; 50445; 50455; 50497; 50607; 50643; 50649; 51301; 51412; 51436; 51489; 52265; 52313; 53078; 54118; 56460; 56524; 56525; 56526; 56527; 56528; 56531; 57115; 57188; 57189; 62110; 62900; 65020; 65040; 65105; 70005

== ENCOUNTER 2019-06-29 12:20 | Inpatient (IN) | payer OTHER ==
[~2019-06-29] VITALS: Ht 175.3 cm; Wt 58.5 kg
[2019-06-29 13:45] VITALS: BP 115/61
[2019-06-29 16:00] VITALS: BP 129/69
[2019-06-29 18:16] VITALS: BP 129/69
--- NOTE | 2019-06-29 18:20 | NUR ---
ASSUMED CARE OF PT AT APPROX 1130. ADMISSION ORDERS AND INSTRUCTIONS COMPLETE. ASSESSMENTS CHARTED. MEDS GIVEN PER MAR. VSS. PT A&OX4. NO C/O PAIN OR SOB. NPO AFTER MIDNIGHT FOR PROCEDURE IN AM. AND BROTHER AT BEDSIDE. WILL CONTINUE TO MONITOR AND FOLLOW POC.
[2019-06-29 19:51] VITALS: BP 108/66
--- NOTE | 2019-06-30 01:04 | NUR ---
ASSESSMENTS CHARTED, MEDS GIVEN CHARTED. PATIENT RETURNED TODAY FROM [facility] FOR 2ND OPINION OF BRONCHOPLEURAL FISTULA HEALING. NO HOLE WAS SEEN, PATIENT RETURNED FOR FURTHER CARE. PLAN IS FOR PATIENT TO HAVE BRONCHOSCOPY, L VAT WITH WOUND VAC CHANGE IN THE MORNING. PATIENT HAS BEEN ON CLEAR LIQUIDS THEN NPO SINCE 0200. C/O PAIN AT WOUND VAC SITE, REQUESTING TYLENOL. PATIENT DOES NOT WANT TO BE DISTURBED UNTIL 0500. HAS NOT SLEPT WELL FOR WEEKS.
[2019-06-30 05:00] VITALS: BP 110/64
[2019-06-30 05:33] LABS: HEMATOCRIT 34.2 % (42.0-52.0); HEMOGLOBIN 10.7 gm/dL (14.0-18.0); MCH 25.8 pg (26.0-34.0); MCHC 31.3 g/dL (28.0-37.0); MCV 82.6 fL (80.0-100.0); RBC 4.14 mil/uL (4.50-6.00); RDW 20.8 % (10.5-14.5); WBC 13.1 thou/uL (4.0-11.0)
[2019-06-30 05:55] LABS: CALCIUM 9.5 mg/dL (8.5-10.1); CREATININE 0.6 mg/dL (0.7-1.3); MAGNESIUM 2.1 mg/dL (1.8-2.4)
[2019-06-30 13:18] VITALS: BP 133/93
[2019-06-30 13:23] VITALS: BP 86/54
[2019-06-30 18:02] VITALS: BP 102/60
--- NOTE | 2019-06-30 19:47 | NUR ---
ASSUMED CARE OF PATIENT AT 0700. PATIENT NPO PENDING PROCEDURE THIS A.M. PATIENT RETURNED FROM PROCEDURE AT 1300 WITH CONTINUED WOUND VAC. PATIENT DENIES ANY PAIN. AND BROTHER AT BEDSIDE. PATIENT AMBULATED THE UNIT WITH PT. ASSESSMENT COMPLETED AND TELE PRINTED AND PLACED IN CHART. VARGHESE MARTIN, ARRANGED FOR PATIENT TO GET A HAIR CUT IN BED AND PATIENT INCREDIBLY APPRECIATIVE AND VISUALLY HAPPIER. PATIENT TO CONTINUE WITH POC.
[2019-06-30 19:56] VITALS: BP 114/51
[2019-07-01 04:46] VITALS: BP 109/66
--- NOTE | 2019-07-01 07:30 | NUR ---
ASSESSMENTS CHARTED, MEDS GIVEN CHARTED. PATIENT DOING WELL POST LVAT PROCEDURE. WOUND VAC STILL IN PLACE. SONI REMOVED FROM [facility]ECTION SITE. PT C/O PAIN ONCE DURING SHIFT, TYLENOL GIVEN. PATIENT SLEPT THROUGH BALANCE OF SHIFT. PLAN OF CARE IS TO HAVE BRONCHOSCOPY LVAT PROCEDURE AGAIN ON TUESDAY.
[2019-07-01 12:00] VITALS: BP 95/53
--- NOTE | 2019-07-01 19:40 | NUR ---
ASSUMED CARE OF PATIENT AT 0700. ASSESSMENT COMPLETED. TELE PRINTED AND PLACED IN CHART. PATIENT'S BROTHER AT BEDSIDE FOR ENTIRE DAY. PATIENT ONLY COMPLAINS OF LEFT FLANK "TIGHTNESS" AFTER AMBULATING THE UNIT FOR GREATER THAN 2 LAPS. PATIENT AMBULATED THE UNIT MULTIPLE TIMES TODAY WITH HIS BROTHER, PUSHING HIS WOUND VAC IN A WHEELCHAIR IN FRONT OF HIM. PATIENT TO CONTINUE WITH POC.
[2019-07-01 19:51] VITALS: BP 107/57
[2019-07-02 04:13] VITALS: BP 110/74
[2019-07-02 04:52] LABS: HEMATOCRIT 30.7 % (42.0-52.0); HEMOGLOBIN 9.8 gm/dL (14.0-18.0); MCH 26.4 pg (26.0-34.0); MCHC 31.8 g/dL (28.0-37.0); MCV 83.1 fL (80.0-100.0); RBC 3.7 mil/uL (4.50-6.00); RDW 20.9 % (10.5-14.5); WBC 12.2 thou/uL (4.0-11.0)
[2019-07-02 05:10] LABS: CALCIUM 9.1 mg/dL (8.5-10.1); CREATININE 0.7 mg/dL (0.7-1.3); MAGNESIUM 2.1 mg/dL (1.8-2.4); POTASSIUM 4.6 mmol/L (3.5-5.1)
[2019-07-02 07:59] VITALS: BP 99/65
--- NOTE | 2019-07-02 08:11 | NUR ---
ASSESSMENTS CHARTED, MEDS GIVEN CHARTED. PATIENT WALKING AROUND UNIT PRIOR TO BEDTIME. C/O PAIN 6/10 AT BEDTIME. NPO SINCE MIDNIGHT. NO SKIN ISSUES. PATIENT REQUESTED A STOOL SOFTENER, SILVIA PETERS GAVE ORDER. PATIENT IS SCHEDULED FOR BRONCOSCOPY, LVAT PROCEDURE TODAY.
--- NOTE | 2019-07-02 18:22 | NUR ---
ASSESSMENT CHARTED. PT ALERT AND ORIENTED. VSS. HAD BRONCHOSCOPY WITH WOUND VAC PLACEMENT THIS MID MORNING. DENIED HAVING PAIN OR DISCOMFORT. WILL CONTINUE TO MONITOR.
[2019-07-02 19:49] VITALS: BP 111/68
[2019-07-03 07:32] VITALS: BP 111/73
[2019-07-03 11:10] VITALS: BP 112/59
--- NOTE | 2019-07-03 14:31 | NUR ---
Patient familiar with casemgt. Patient with complex medical hx of bronchiopleural fistuala, Pna, adenocarcinoma of lung. patient has transferred to [facility] for procedures with return for care of CTS. Prior to admission independent with adls. Semiretired works for [employer]. 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 patient able to ambulate on unit. Plan for home with once medically stable.
[2019-07-03 16:09] VITALS: BP 114/65
--- NOTE | 2019-07-03 18:57 | NUR ---
ASSUMMED PT CARE AT APPROXIMATELY 0700. PT A&O X4. ASSESSMENT CHARTED. FALL PRECAUTIONS IN PLACE. PT DENIES HAVING CHEST PAIN. PT DENIES HAVING SOB. PT DENIES HAVING ACUTE PAIN. PT AND PT'S FAMILY EDUCATED ABOUT POC. PT AND PT'S FAMILY STATED UNDERSTANDING AND DENIED HAVING FURTHER QUESTIONS. PT AMBULATED STEADY. PT AMBULATED THROUGHOUT HALLWAYS. VITAL SIGNS STABLE. L WOUND VAC C/D/I. PT L PLEURAL DRESSING C/D/I. PT COMFORTABLE. PT DENIES HAVING FURTHER CONCERNS. CONSENT FORM SIGNED FOR PROCEDURE TOMORROW.
[2019-07-03 21:07] VITALS: BP 136/78
[2019-07-04 06:54] VITALS: BP 124/76
[2019-07-04 07:19] LABS: HEMATOCRIT 30.8 % (42.0-52.0); HEMOGLOBIN 9.7 gm/dL (14.0-18.0); MCH 26.2 pg (26.0-34.0); MCHC 31.4 g/dL (28.0-37.0); MCV 83.5 fL (80.0-100.0); RBC 3.69 mil/uL (4.50-6.00); WBC 12.9 thou/uL (4.0-11.0)
[2019-07-04 07:24] LABS: CALCIUM 9.4 mg/dL (8.5-10.1); CREATININE 0.7 mg/dL (0.7-1.3); PHOSPHORUS 4.9 mg/dL (2.5-4.9); POTASSIUM 4.1 mmol/L (3.5-5.1)
--- NOTE | 2019-07-04 14:49 | NUR ---
FAXED REFERRAL TO [facility] SPOKE WITH [facility] IN INTAKE THEY DO NOT TAKE [employer] INS.
[2019-07-04 16:07] VITALS: BP 121/80
--- NOTE | 2019-07-04 16:36 | NUR ---
ASSUMMED PT CARE AT APPROXIMATELY 0700. PT A&O X4. ASSESSMENT CHARTED. FALL PRECUATIONS IN PLACE. PT DENIES HAVING CHEST PAIN. PT DENIES HAVING SOB. PT DENIES HAVING ACUTE PAIN. PT AND PT'S FAMILY EDUCATED ABOUT POC. PT AND PT'S FAMILY STATED UNDERSTANDING AND DENIED HAVING FURTHER QUESTIONS. PT HAD BROCHOSCOPY PROCEDURE TODAY. PT NOT REQUIRING WOUND VAC. L PLEURAL DRESSING C/D/I. PT AMBULATED THROUGHOUT UNIT. PT STEADY WHEN AMBULATING. VITAL SIGNS STABLE. PT COMFORTABLE IN BED. PT DENIES HAVING FURTHER CONCERNS.
--- NOTE | 2019-07-04 16:38 | NUR ---
PT IN NEED OF HH AT [place] AND [place] IN [place] SPOKE WITH INTAKE AT THESE HH AGENCY'S AND THEY DO NOT COVER [place] [facility], [facility], [facility], AND [facility]. DP TO FOLLOW.
[2019-07-04 19:30] VITALS: BP 118/69
--- NOTE | 2019-07-05 01:57 | NUR ---
PATIENT ASSESSED AND IS ALERT X 4. SKIN WARM AND DRY. RESP EVEN AND UNLABORED. TELE- SHOWS NSR. DENIES ANY CHEST PAIN. WILL BE DC IN AM. FAMILY AT BEDSIDE. IV IN RIGHT FASL. FLUSHES WELL. TAKING DIET WELL UP AD AIDA PER SELF. ON ROOM AIR. IV SITE HEALTHY. WOUND HAS DRESSING ON LEFT BACK AREA., NO DRAINAGE NOTED ON DRESSING. CONT TO MONITOR FOR CHANGES. TYLENOL GIVEN FOR DISCOMFORT. CONT PLAN OF CARE.
[2019-07-05 08:00] VITALS: BP 120/75
[2019-07-05] MEDS ORDERED: LOPRESSOR25 PO (10:23)
[2019-07-05] MEDS ORDERED: WELLBUTRIN 75 M75 M1 PO (10:23)
[2019-07-05] MEDS ORDERED: LIPITOR40 MG PO (10:23)
[2019-07-05] MEDS ORDERED: HYDROCODON-ACE1 EAC7 PO ×3 (10:23→13:56)
[2019-07-05] MEDS ORDERED: XANAX 0.25 MG0.25 MG PO ×4 (10:23→13:58)
[2019-07-05] MEDS ORDERED: ASPIR 8181 MG PO (10:23)
[2019-07-05 13:03] VITALS: BP 120/75
--- NOTE | 2019-07-05 13:47 | NUR ---
FAXED REFERRALS TO [facility], [facility], [facility], [facility], [facility] AND SEVERAL OTHER HH AGENCIES NONE OF THEM COULD ACCEPT THEY EITHER DIDN'T COVER [place] OR DIDN'T ACCEPT PT'S INSURANCE. SW (ESPERANZA) NOTIFIED PT AT AND HE IS FINE WITH GOING HOME WITHOUT HH.
--- NOTE | 2019-07-05 14:12 | NUR ---
ASSESSMENT CHARTED. PT ALERT AND ORIENTED. VSS. DENIED HAVING PAIN OR DISCOMFORT. ORDERS GIVEN TO DISCHARGE PT TO HOME. DISCHARGE INSTRUCTIONS GIVEN TO PT AND THE . THEY BOTH VERBERLISED UNDERSTANDING. PT LEFT THE FACILITY ACCOMPANIED BY THE .
--- NOTE | 2019-07-05 15:45 | NUR ---
Patient ambulating holder. patient to dc home with no wound vac. Called multiple HH agecied who cannot service area or not innetwork with insurance. Phys in agreement to ct home with f/u outpatient phys office visits. reports visit Mon to phys. No further needs.
--- NOTE | 2019-07-11 13:56 | O ---
[facility] [place] [address] OPERATIVE REPORT Name: MILLA PERALTA Room #: 211-P [facility] IN M.R.#: [id number] Admission: 06/29/19 Attend Phys: Erick Stone MD Discharge: 07/05/19 Date of : 53 Report #: [id number] THIS REPORT FOR: //name// CC: [facility] physician/PCP Erick Stone DATE OF SERVICE: 07/02/2019 PREOPERATIVE DIAGNOSIS: Bronchopleural fistula. POSTOPERATIVE DIAGNOSIS: Bronchopleural fistula. OPERATIONS: Bronchoscopy, left video-assisted thoracoscopy with wound VAC change. SURGEON: Lavell Whelan MD ANESTHESIA: General. INDICATIONS: The patient is a 64-year-old with air leak after right lower lobectomy. The patient has been treated with wound VAC to help heal this bronchopleural fistula. FINDINGS AND TECHNIQUE: After general anesthesia was established, flexible diagnostic bronchoscopy was performed. The bronchus was inspected and no major changes were identified. The patient was positioned with left side up and video-assisted thoracoscopy was performed. While we were visualizing the pleural space, I performed bronchoscopy. A brush was passed into what I thought was the open area of the bronchus. I could not pass this distally and in fact the bronchopleural fistula itself seemed to be healed. Insufflating air, however, revealed that there were bubbles coming up. This appeared to be from the lung surface rather than the bronchus itself. With this information, Fogerty catheters were obtained to see if we could identify the source of the leak. Unfortunately, none of our catheter were long enough to fit through the bronchoscope. With this dilemma, I merely irrigated the space with antibiotic solution and then replaced the wound VAC sponge in the hope that this would lead to granulation. [facility] [address] [email or web address] [address] OPERATIVE REPORT Name: KATHRYNMILLA Estrada Room #: 211-P [facility] IN M.R.#: [id number] Admission: 06/29/19 Attend Phys: Erick Stone MD Discharge: 07/05/19 Date of : 53 Report #: [id number] A plan was made for next VAC change to include application of Progel to try to get this leak to seal. We also will try to find a way to selectively occlude the bronchial anatomy to identify the source of the leak. The patient tolerated all of this well and was returned to the recovery area. <ELECTRONICALLY SIGNED> By: Lavell Whelan MD 07/11/19 1356 [id number] 0900 Lvaell Whelan MD /nt
--- NOTE | 2019-07-11 13:56 | O ---
[facility] [place] [address] OPERATIVE REPORT Name: MILLA PERALTA Room #: 211-P [facility] IN .R.#: [id number] Admission: 06/29/19 Attend Phys: Erick Stone MD Discharge: 07/05/19 Date of : 53 Report #: [id number] THIS REPORT FOR: //name// CC: [facility] physician/PCP Erick Stone DATE OF SERVICE: 07/04/2019 PREOPERATIVE DIAGNOSIS: Bronchopleural fistula. POSTOPERATIVE DIAGNOSIS: Bronchopleural fistula. OPERATION: Bronchoscopy, left video-assisted thoracoscopy, closure of Eloesser flap with Clagett approach. SURGEON: Lavell Whelan MD COUNSELING AIDE: VARGHESE Shankar. ANESTHESIA: General. INDICATIONS: The patient is a 64-year-old with a bronchopleural fistula, status post left lower lobectomy. A bronchial leak itself was repaired with a muscle flap, but we have had a persistent leak from the pleural surface despite wound care with irrigating wound VAC. FINDINGS AND TECHNIQUE: After general anesthesia was established, flexible diagnostic bronchoscopy was performed. Bronchial stump was examined. It was plugged with the fibrin glue that we had inserted previously. Otherwise, the bronchial stump and the bronchial anatomy was satisfactory with some thick scant secretions, but no mucosal lesions. A bronchial ronit was placed in the left mainstem and the patient was positioned with left side up. Video-assisted thoracoscopy was done through the remaining Eloesser flap chest tube site. There was granulation tissue covering the pleural surface, but when we ventilated, we could clearly see leaks through the parenchyma. We applied 2 coats of Proseal. There was persistent leak after the first application, so a second application was necessary. The patient was positioned such that the gel could pool in the areas of most involvement. After the second application, there was no air leak with the pristine pleural space from the careful wound care that the patient has gotten. I was satisfied that we could use a Clagett type approach. Debridement antibiotic solution was [facility] [address] [place] [address] OPERATIVE REPORT Name: KATHRYNMILLA Estrada Room #: 211-P [facility] IN M.R.#: [id number] Admission: 06/29/19 Attend Phys: Erick Stone MD Discharge: 07/05/19 Date of : 53 Report #: [id number] instilled and then the wound itself was closed in layers with interrupted Vicryl for the muscle layer and subcutaneous tissue and nylon and elliott for the skin. The patient tolerated all this well and was taken to the recovery area in good condition. All counts reported as correct. A chest x-ray was obtained. <ELECTRONICALLY SIGNED> By: Lavell Whelan MD 07/11/19 1356 1124 1133 Lavell Whelan MD /nt
== END 2019-07-05 14:13 | disposition home or self-care (01) | DRG 163 ==
LOC: 2N 12:20 → ENTRNSPT 07-05 14:03 → EDTRNSPTSTS 07-05 14:06 → 2N 07-05 14:13
PROVIDERS: ADMIT Internal Medicine
PROC: 0BJ08ZZ Inspection of Tracheobronchial Tree, Via Natural or Artificial Opening Endoscopic (ICD-10-PCS; 2019-07-02)
PROC: 2W04X6Z Change Pressure Dressing on Chest Wall (ICD-10-PCS; 2019-07-02)
PROC: 0JQ60ZZ Repair Chest Subcutaneous Tissue and Fascia, Open Approach (ICD-10-PCS; 2019-07-02)
PROC: 0BQ Respiratory System, Repair (ICD-10-PCS; principal; 2019-07-04)
PROC: 0BJQ4ZZ Inspection of Pleura, Percutaneous Endoscopic Approach (ICD-10-PCS; principal; 2019-07-04)
PROC: 0BJ08ZZ Inspection of Tracheobronchial Tree, Via Natural or Artificial Opening Endoscopic (ICD-10-PCS; principal; 2019-07-04)
PROC: 0BJQ4ZZ Inspection of Pleura, Percutaneous Endoscopic Approach (ICD-10-PCS; 2019-07-04)
PROC: 0BJ08ZZ Inspection of Tracheobronchial Tree, Via Natural or Artificial Opening Endoscopic (ICD-10-PCS; 2019-07-04)
DX: J86.0 Pyothorax with fistula (principal); E43 Unspecified severe protein-calorie malnutrition; Z68.1 Body mass index [BMI] 19.9 or less, adult; C34.91 Malignant neoplasm of unspecified part of right bronchus or lung; J44.9 Chronic obstructive pulmonary disease, unspecified; I25.10 Atherosclerotic heart disease of native coronary artery without angina pectoris; I10 Essential (primary) hypertension; E78.5 Hyperlipidemia, unspecified; F32.9 Major depressive disorder, single episode, unspecified; F41.9 Anxiety disorder, unspecified; I95.9 Hypotension, unspecified; K21.9 Gastro-esophageal reflux disease without esophagitis; Z86.718 Personal history of other venous thrombosis and embolism; Z79.01 Long term (current) use of anticoagulants; Z79.82 Long term (current) use of aspirin; Z91.048 Other nonmedicinal substance allergy status; Z79.891 Long term (current) use of opiate analgesic; Z79.899 Other long term (current) drug therapy; Z95.1 Presence of aortocoronary bypass graft; Z90.89 Acquired absence of other organs; Z80.1 Family history of malignant neoplasm of trachea, bronchus and lung; Z83.3 Family history of diabetes mellitus; Z87.891 Personal history of nicotine dependence
CPT/HCPCS: 10081; 10797; 50010; 50101; 50386; 50417; 50455; 50643; 50921; 51165; 51412; 51436; 51489; 52189; 52265; 52313; 53326; 54118; 56524; 56525; 56526; 56527; 56528; 57188; 57189; 62110; 62900; 64015; 65105; 70005

== ENCOUNTER → 2019-07-09 | Outpatient (CLI) | payer OTHER ==
[~2019-07-09] MED LIST changes: +HYDROCODON-ACE1 EAC7 PO; +LOPRESSOR25 PO
== END ==
LOC: RAD 11:02
DX: J94.8 Other specified pleural conditions (principal)

== ENCOUNTER → 2019-07-13 | Outpatient (CLI) | payer OTHER | LOC: RAD 09:33 | DX: J94.8 Other specified pleural conditions (principal); J98.4 Other disorders of lung ==